=== PATIENT | male | born 1990 | race Caucasian/White ===

== ENCOUNTER 2016-03-14 16:55 | Emergency (ER) | payer OTHER, SELFPAY ==
[~2016-03-14 16:55] MED LIST: [UNRECOGNIZED DRUG - REMARK]
--- NOTE | 2016-03-14 17:37 | EDDOCDS ---
Nurse's Notes [facility] Name: Cedrick Moore Age: 25 yrs Sex: Male : 1990 Arrival Date: 03/14/2016 Time: 16:55 Bed TR8 Private MD: Jazmine King L. Diagnosis: Dental caries;Cellulitis and abscess of mouth Presentation: 03/14 16:57 Presenting complaint: Patient states: tooth ache since last night. Adult Sepsis rs3 Screening: The patient does not have new or worsening altered mentation. Patient's respiratory rate is less than 22. Systolic blood pressure is greater than 100. Patient has a qSOFA score of 0- Negative Sepsis Screen. Suicide/Homicide risk assessment- the patient denies having any suicidal and/or homicidal ideations and does not present with any other emotional, behavioral or mental health complaints. Status: Patient is not a senior web services developer or dependent. Transition of care: patient was not received from another setting of care. 16:57 Acuity: RM Level 5 rs3 16:57 Method Of Arrival: Walkin/Carried/Asstd rs3 Triage Assessment: 17:01 General: Appears in no apparent distress. Pain: Location: mouth. HIV screening NA for rs3 this visit Offered previously. Historical: - Allergies: no known allergies; - Home Meds: 1. BuSpar 7.5 mg Oral twice a day 2. naltrexone 50 mg oral tab 1 tab once daily 3. Zoloft 100 mg Oral tab 1.5 tabs once daily - PMHx: Anxiety; Depression; heroin adddiction; - PSHx: none; - Social history: Smoking status: Patient uses tobacco products, heavy tobacco smoker. No barriers to communication noted, The patient speaks fluent Mozambican, Patient uses chewing tobacco. - Family history: Not pertinent. - : The pt / caregiver states he / she is not on anticoagulants. Home medication list is obtained from the patient. - Exposure Risk Screening:: None identified. Screenin:35 Screening information is obtained from the patient. Fall risk: No risks identified. ms18 Assistance ADL's: requires no assistance with activities of daily living. Abuse/DV Screen: The patient / caregiver reports he/she is: not in a situation that causes fear, pain or injury. Nutritional screening: No deficits noted. Advance Directives: There is no living will. home support is adequate. Assessment: 17:35 General: Appears in no apparent distress, comfortable, Behavior is appropriate for age, ms18 cooperative. Pain: Location: mouth. Neurological: No deficits noted. Respiratory: No deficits noted. Derm: Skin is pink, warm & dry. Vital Signs: 16:56 BP 155 / 92; Pulse 85; Resp 18 S; Temp 98.4(O); Pulse Ox 98% on R/A; Weight 84.37 kg dd6 (R); Height 5 ft. 7 in. (170.18 cm) (R); 16:56 Body Mass Index 29.13 (84.37 kg, 170.18 cm) dd6 Vitals: 16:56 Log In Time: March 14, 2016 at 16:54. dd6 ED Course: 16:56 Patient visited by Travis Darby PCA. dd6 16:56 Jazmine King is Private Physician. dd6 16:56 Patient moved to Waiting dd6 16:57 Patient moved to Pre RCE dd6 16:58 Triage Initiated rs3 17:03 Patient moved to Triage 2 kc3 17:14 Clovis Camp PA is PHCP. btw 17:14 Tanya Yin MD is Attending Physician. btw 17:14 Patient visited by Clovis Camp PA. btw 17:25 Michelle Briseno is Referral Physician. btw 17:33 Patient moved to TR8 ms18 17:34 [facility] Payment Agreement was scanned into [employer] and attached to record. ks16 17:35 The patient / caregiver is instructed regarding the plan of care and ED course. ms18 Accompanied by Friend. Property sent home with patient. :Personal belongings accompany Pt. 17:35 No IV's were initiated during this patient's visit. No procedures done that require ms18 assistance. Order Results: There are currently no results for this order. Outcome: 17:26 Discharge ordered by Provider. btw 17:35 Discharge Assessment: Patient awake, alert and oriented x 3. No cognitive and/or ms18 functional deficits noted. Patient verbalized understanding of disposition instructions. patient administered narcotics - no. The following High Risk Discharge criteria are identified: None. Discharged to home ambulatory. Condition: good Condition: stable. Discharge instructions given to patient, Instructed on discharge instructions, follow up and referral plans. medication usage, Demonstrated understanding of instructions, medications, Prescriptions given X 1. No special radiology studies were completed. 17:36 Patient left the ED. ms18 Signatures: Travis Darby, ACTING SECTION CHIEF ACTING SECTION CHIEF dd6 Roseline Acevedo,RN RN rs3 Clovis Camp PA PA btw Smith, Mallory, RN RN ms18 Veena Lopez RN RN [id number] Yu Ramirez, Reg Reg ks16 MTDD
--- NOTE | 2016-03-14 17:37 | EDDOCDS ---
Physician Documentation [facility] Name: Cedrick Moore Age: 25 yrs Sex: Male : 1990 Arrival Date: 03/14/2016 Time: 16:55 Bed TR8 Private MD: Jazmine King L. Disposition: 03/14/16 17:26 Discharged to Home/Self Care. Impression: Dental caries, Cellulitis and abscess of mouth. - Condition is Stable. - Discharge Instructions: Dental Abscess, Dental Pain. - Prescriptions for Clindamycin HCl 300 mg Oral Capsule - take 1 capsule by ORAL route every 6 hours; 40 capsule. - Medication Reconciliation, Local Pharmacy Hours form. - Follow up: Your, Dentist; When: Call to arrange an appointment; Reason: Further diagnostic work-up, Recheck today's complaints, Continuance of care. - Problem is an ongoing problem. - Symptoms are unchanged. Historical: - Allergies: no known allergies; - Home Meds: 1. BuSpar 7.5 mg Oral twice a day 2. naltrexone 50 mg oral tab 1 tab once daily 3. Zoloft 100 mg Oral tab 1.5 tabs once daily - PMHx: Anxiety; Depression; heroin adddiction; - PSHx: none; - Social history: Smoking status: Patient uses tobacco products, heavy tobacco smoker. No barriers to communication noted, The patient speaks fluent Urdu, Patient uses chewing tobacco. - Family history: Not pertinent. - : The pt / caregiver states he / she is not on anticoagulants. Home medication list is obtained from the patient. - Exposure Risk Screening:: None identified. Vital Signs: 03/14 16:56 BP 155 / 92; Pulse 85; Resp 18 S; Temp 98.4(O); Pulse Ox 98% on R/A; Weight 84.37 kg / dd6 186 lbs (R); Height 5 ft. 7 in. (170.18 cm) (R); 16:56 Body Mass Index 29.13 (84.37 kg, 170.18 cm) dd6 MDM: 17:33 Financial registration complete. [facility] 17:34 [facility] Payment Agreement was scanned into [email or web address] and attached to record. Signatures: Roseline AcevedoRN RN rs3 Clovis Camp PA PA btw Smith, MalloryRN RN ms18 Yu Ramirez, Reg Reg ks16 The chart was reviewed and I authenticate all verbal orders and agree with the evaluation and treatment provided.Attachments: 17:34 [facility] Payment Agreement ks16 MTDD
--- NOTE | 2016-03-16 18:37 | EDDOCDS ---
Physician Documentation [facility] Name: Cedrick Moore Age: 25 yrs Sex: Male : 1990 Arrival Date: 03/14/2016 Time: 16:55 Bed TR8 Private MD: Jazmine King L. Disposition: 03/14/16 17:26 Discharged to Home/Self Care. Impression: Dental caries, Cellulitis and abscess of mouth. - Condition is Stable. - Discharge Instructions: Dental Abscess, Dental Pain. - Prescriptions for Clindamycin HCl 300 mg Oral Capsule - take 1 capsule by ORAL route every 6 hours; 40 capsule. - Medication Reconciliation, Local Pharmacy Hours form. - Follow up: Your, Dentist; When: Call to arrange an appointment; Reason: Further diagnostic work-up, Recheck today's complaints, Continuance of care. - Problem is an ongoing problem. - Symptoms are unchanged. Historical: - Allergies: no known allergies; - Home Meds: 1. BuSpar 7.5 mg Oral twice a day 2. naltrexone 50 mg oral tab 1 tab once daily 3. Zoloft 100 mg Oral tab 1.5 tabs once daily - PMHx: Anxiety; Depression; heroin adddiction; - PSHx: none; - Social history: Smoking status: Patient uses tobacco products, heavy tobacco smoker. No barriers to communication noted, The patient speaks fluent Romanian, Patient uses chewing tobacco. - Family history: Not pertinent. - : The pt / caregiver states he / she is not on anticoagulants. Home medication list is obtained from the patient. - Exposure Risk Screening:: None identified. Vital Signs: 03/14 16:56 BP 155 / 92; Pulse 85; Resp 18 S; Temp 98.4(O); Pulse Ox 98% on R/A; Weight 84.37 kg / dd6 186 lbs (R); Height 5 ft. 7 in. (170.18 cm) (R); 16:56 Body Mass Index 29.13 (84.37 kg, 170.18 cm) dd6 MDM: 17:33 Financial registration complete. ks 17:34 [facility] Payment Agreement was scanned into [employer] and attached to record. 03/15 11:20 T-Sheet-- Draft Copy was scanned into [employer] and attached to record. gb Signatures: Sonya Reyes, Reg Reg gb Roseline AcevedoRN RN rs3 Clovis Camp PA PA btw Smith, Mallory, RN RN ms18 Yu Ramirez, Reg Reg ks16 The chart was reviewed and I authenticate all verbal orders and agree with the evaluation and treatment provided.Attachments: 03/14 17:34 [facility] Payment Agreement [email or web address] 03/15 11:20 T-Sheet-- Draft Copy gb Chart Complete MTDD
--- NOTE | 2016-03-16 18:37 | EDDOCDS ---
Nurse's Notes [facility] Name: Cedrick Moore Age: 25 yrs Sex: Male : 1990 Arrival Date: 03/14/2016 Time: 16:55 Bed TR8 Private MD: Jazmine King L. Diagnosis: Dental caries;Cellulitis and abscess of mouth Presentation: 03/14 16:57 Presenting complaint: Patient states: tooth ache since last night. Adult Sepsis rs3 Screening: The patient does not have new or worsening altered mentation. Patient's respiratory rate is less than 22. Systolic blood pressure is greater than 100. Patient has a qSOFA score of 0- Negative Sepsis Screen. Suicide/Homicide risk assessment- the patient denies having any suicidal and/or homicidal ideations and does not present with any other emotional, behavioral or mental health complaints. Status: Patient is not a family services assistant or dependent. Transition of care: patient was not received from another setting of care. 16:57 Acuity: RM Level 5 rs3 16:57 Method Of Arrival: Walkin/Carried/Asstd rs3 Triage Assessment: 17:01 General: Appears in no apparent distress. Pain: Location: mouth. HIV screening NA for rs3 this visit Offered previously. Historical: - Allergies: no known allergies; - Home Meds: 1. BuSpar 7.5 mg Oral twice a day 2. naltrexone 50 mg oral tab 1 tab once daily 3. Zoloft 100 mg Oral tab 1.5 tabs once daily - PMHx: Anxiety; Depression; heroin adddiction; - PSHx: none; - Social history: Smoking status: Patient uses tobacco products, heavy tobacco smoker. No barriers to communication noted, The patient speaks fluent Comoran, Patient uses chewing tobacco. - Family history: Not pertinent. - : The pt / caregiver states he / she is not on anticoagulants. Home medication list is obtained from the patient. - Exposure Risk Screening:: None identified. Screenin:35 Screening information is obtained from the patient. Fall risk: No risks identified. ms18 Assistance ADL's: requires no assistance with activities of daily living. Abuse/DV Screen: The patient / caregiver reports he/she is: not in a situation that causes fear, pain or injury. Nutritional screening: No deficits noted. Advance Directives: There is no living will. home support is adequate. Assessment: 17:35 General: Appears in no apparent distress, comfortable, Behavior is appropriate for age, ms18 cooperative. Pain: Location: mouth. Neurological: No deficits noted. Respiratory: No deficits noted. Derm: Skin is pink, warm & dry. Vital Signs: 16:56 BP 155 / 92; Pulse 85; Resp 18 S; Temp 98.4(O); Pulse Ox 98% on R/A; Weight 84.37 kg dd6 (R); Height 5 ft. 7 in. (170.18 cm) (R); 16:56 Body Mass Index 29.13 (84.37 kg, 170.18 cm) dd6 Vitals: 16:56 Log In Time: March 14, 2016 at 16:54. dd6 ED Course: 16:56 Patient visited by Travis Darby PCA. dd6 16:56 Jamzine King is Private Physician. dd6 16:56 Patient moved to Waiting dd6 16:57 Patient moved to Pre RCE dd6 16:58 Triage Initiated rs3 17:03 Patient moved to Triage 2 kc3 17:14 Clovis Camp PA is PHCP. btw 17:14 Tanya Yin MD is Attending Physician. btw 17:14 Patient visited by Clovis Camp PA. btw 17:25 Michelle Briseno is Referral Physician. btw 17:33 Patient moved to TR8 ms18 17:34 [facility] Payment Agreement was scanned into [employer] and attached to record. ks16 17:35 The patient / caregiver is instructed regarding the plan of care and ED course. ms18 Accompanied by Friend. Property sent home with patient. :Personal belongings accompany Pt. 17:35 No IV's were initiated during this patient's visit. No procedures done that require ms18 assistance. 03/15 11:20 T-Sheet-- Draft Copy was scanned into [employer] and attached to record. gb Order Results: There are currently no results for this order. Outcome: 03/14 17:26 Discharge ordered by Provider. btw 17:35 Discharge Assessment: Patient awake, alert and oriented x 3. No cognitive and/or ms18 functional deficits noted. Patient verbalized understanding of disposition instructions. patient administered narcotics - no. The following High Risk Discharge criteria are identified: None. Discharged to home ambulatory. Condition: good Condition: stable. Discharge instructions given to patient, Instructed on discharge instructions, follow up and referral plans. medication usage, Demonstrated understanding of instructions, medications, Prescriptions given X 1. No special radiology studies were completed. 17:36 Patient left the ED. ms18 Signatures: Sonya Reyes, Reg Reg gb JovanicashgaryTravis, ENVELOPE SEALER ENVELOPE SEALER dd6 Roseline Acevedo,RN RN rs3 Clovis Camp PA PA btw Smith, Mallory, RN RN ms18 Veena LopezRN RN kc3 Yu Ramirez, Reg Reg ks16 Chart Complete MTDD
--- NOTE | 2016-03-16 18:37 | EDDOCDS ---
Physician Documentation [facility] Name: Cedrick Moore Age: 25 yrs Sex: Male : 1990 Arrival Date: 03/14/2016 Time: 16:55 Bed TR8 Private MD: Jazmine King L. Disposition: 03/14/16 17:26 Discharged to Home/Self Care. Impression: Dental caries, Cellulitis and abscess of mouth. - Condition is Stable. - Discharge Instructions: Dental Abscess, Dental Pain. - Prescriptions for Clindamycin HCl 300 mg Oral Capsule - take 1 capsule by ORAL route every 6 hours; 40 capsule. - Medication Reconciliation, Local Pharmacy Hours form. - Follow up: Your, Dentist; When: Call to arrange an appointment; Reason: Further diagnostic work-up, Recheck today's complaints, Continuance of care. - Problem is an ongoing problem. - Symptoms are unchanged. Historical: - Allergies: no known allergies; - Home Meds: 1. BuSpar 7.5 mg Oral twice a day 2. naltrexone 50 mg oral tab 1 tab once daily 3. Zoloft 100 mg Oral tab 1.5 tabs once daily - PMHx: Anxiety; Depression; heroin adddiction; - PSHx: none; - Social history: Smoking status: Patient uses tobacco products, heavy tobacco smoker. No barriers to communication noted, The patient speaks fluent Uzbek, Patient uses chewing tobacco. - Family history: Not pertinent. - : The pt / caregiver states he / she is not on anticoagulants. Home medication list is obtained from the patient. - Exposure Risk Screening:: None identified. Vital Signs: 03/14 16:56 BP 155 / 92; Pulse 85; Resp 18 S; Temp 98.4(O); Pulse Ox 98% on R/A; Weight 84.37 kg / dd6 186 lbs (R); Height 5 ft. 7 in. (170.18 cm) (R); 16:56 Body Mass Index 29.13 (84.37 kg, 170.18 cm) dd6 MDM: 17:33 Financial registration complete. ks 17:34 [facility] Payment Agreement was scanned into [employer] and attached to record. 03/15 11:20 T-Sheet-- Draft Copy was scanned into [employer] and attached to record. gb Signatures: Sonya Reyes, Reg Reg gb Roseline AcevedoRN RN rs3 Clovis Camp PA PA btw Smith, Mallory, RN RN ms18 Yu Ramirez, Reg Reg ks16 The chart was reviewed and I authenticate all verbal orders and agree with the evaluation and treatment provided.Attachments: 03/14 17:34 [facility] Payment Agreement [email or web address] 03/15 11:20 T-Sheet-- Draft Copy gb Chart Complete MTDD
== END 2016-03-14 17:36 | disposition home or self-care (01) ==
LOC: M ED 16:55
DX: K04.7 Periapical abscess without sinus (principal); K02.9 Dental caries, unspecified; F32.9 Major depressive disorder, single episode, unspecified; F41.9 Anxiety disorder, unspecified; F17.210 Nicotine dependence, cigarettes, uncomplicated

== ENCOUNTER → 2016-04-06 | Outpatient (CLI) | payer SELFPAY | LOC: M OUTALCOH 09:53 | PROVIDERS: ATTEND Psychiatry & Neurology Psychiatry | DX: Z13.9 Encounter for screening, unspecified (principal); F14.20 Cocaine dependence, uncomplicated; F15.20 Other stimulant dependence, uncomplicated ==

== ENCOUNTER → 2016-08-13 | Outpatient (REF) | payer OTHER ==
[~2016-08-13] MED LIST changes: +BACT800T5 PO
[2016-08-13 18:40] LABS: ALBUMIN 4.2 GM/DL (3.2-5.2); ALBUMIN/GLOBULIN RATIO 1.27 (1.00-1.93); ALKALINE PHOSPHATASE 61 U/L (45-117); ALT/SGPT 37 U/L (12-78); AST/SGOT 27 U/L (15-37); BILIRUBIN,DIRECT < 0.1 MG/DL (0.0-0.2); BILIRUBIN,TOTAL 0.4 MG/DL (0.2-1.0); TOTAL PROTEIN 7.5 GM/DL (6.4-8.2)
== END ==
LOC: M LAB REF 16:53
PROVIDERS: ATTEND Surgery
DX: Z51.81 Encounter for therapeutic drug level monitoring (principal)

== ENCOUNTER 2016-11-23 12:47 | Emergency (ER) | payer OTHER, SELFPAY ==
[~2016-11-23] VITALS: Ht 172.7 cm; Wt 77.3 kg
[~2016-11-23 12:47] MED LIST changes: -BACT800T5 PO
[2016-11-23 12:48] VITALS: BP 146/78
[2016-11-23] MEDS ORDERED: BACT800T5 PO (14:44)
== END 2016-11-23 14:56 | disposition home or self-care (01) ==
LOC: M ED 12:47
DX: L02.414 Cutaneous abscess of left upper limb (principal); F11.20 Opioid dependence, uncomplicated; F17.210 Nicotine dependence, cigarettes, uncomplicated

== ENCOUNTER 2016-11-28 13:28 | Emergency (ER) | payer SELFPAY ==
[~2016-11-28] VITALS: Ht 172.7 cm; Wt 77.3 kg
[~2016-11-28 13:28] MED LIST changes: +BACT800T5 PO
[2016-11-28 16:21] VITALS: BP 137/79
[2016-11-28] MEDS ORDERED: IBUPROFEN 800 MG TAB PO ONE (16:30)
== END 2016-11-28 16:23 | disposition home or self-care (01) ==
LOC: M ED 13:28
DX: Z48.03 Encounter for change or removal of drains (principal); L02.414 Cutaneous abscess of left upper limb; F17.210 Nicotine dependence, cigarettes, uncomplicated; F15.20 Other stimulant dependence, uncomplicated

== ENCOUNTER 2016-12-04 21:34 | Emergency (ER) | payer SELFPAY ==
[2016-12-04 23:38] VITALS: BP 133/67
== END 2016-12-04 23:43 | disposition home or self-care (01) ==
LOC: M ED 21:34
DX: R45.4 Irritability and anger (principal); Y04.8XXA Assault by other bodily force, initial encounter; Y92.9 Unspecified place or not applicable; Y93.9 Activity, unspecified; Y99.9 Unspecified external cause status; F17.200 Nicotine dependence, unspecified, uncomplicated; Z86.19 Personal history of other infectious and parasitic diseases; F19.10 Other psychoactive substance abuse, uncomplicated

== ENCOUNTER 2017-03-22 10:33 | Emergency (ER) | payer OTHER, SELFPAY ==
[2017-03-22] MEDS ORDERED: KETOROLAC 30 MG/ML VIAL (J1885) IV (12:00)
[2017-03-22] MEDS: KETOROLAC 60 MG/2 ML VIAL (J1885) IM (12:15)
[2017-03-22 12:52] LABS: ANION GAP 9 MEQ/L (8-16); BLOOD UREA NITROGEN 12 MG/DL (7-18); CALCIUM LEVEL 8.3 MG/DL (8.5-10.1); CARBON DIOXIDE LEVEL 25 MEQ/L (21-32); CHLORIDE LEVEL 100 MEQ/L (98-107); CREATININE FOR GFR 0.67 MG/DL (0.70-1.30); GLOMERULAR FILTRATION RATE > 60.0 (>60); GLUCOSE, FASTING 113 MG/DL (70-100); POTASSIUM SERUM 4.8 MEQ/L (3.5-5.1); SODIUM LEVEL 134 MEQ/L (136-145)
[2017-03-22 12:59] LABS: BASO % 0.1 % (0.0-1.0); EOS # 0.1 10^3/uL (0.0-0.50); EOS % 0.8 % (0.0-3.0); HEMATOCRIT 35.3 % (42.0-52.0); HEMOGLOBIN 11.6 g/dl (14.0-18.0); IMMATURE GRANULOCYTE % 0.3 % (0-0); LYMPH # 0.4 10^3/uL (1.5-6.5); LYMPH % 4.9 % (24.0-44.0); MEAN CORPUSCULAR HEMOGLOBIN 28.5 pg (27.0-33.0); MEAN CORPUSCULAR HGB CONC 32.9 g/dl (32.0-36.5); MEAN CORPUSCULAR VOLUME 86.7 fl (80.0-96.0); MONO # 0.8 10^3/uL (0.0-0.8); MONO % 8.4 % (0.0-5.0); NEUTROPHILS # 7.6 10^3/uL (1.8-7.7); NEUTROPHILS % 85.5 % (36.0-66.0); PLATELET COUNT, AUTOMATED 191 10^3/uL (150-450); RED BLOOD COUNT 4.07 10^6/uL (4.30-6.10); RED CELL DISTRIBUTION WIDTH 13.9 % (11.5-14.5); WHITE BLOOD COUNT 8.9 10^3/uL (4.0-10.0)
[2017-03-22 13:11] LABS: D-DIMER QUANT 1977.2 ng/ml (<500)
[2017-03-22] MEDS ORDERED: ISOVUE-370 76% 100ML VIAL (Q9967) As Ordered (13:47)
[2017-03-22] MEDS: NS 1,000 ML IV (14:00)
== END 2017-03-22 15:03 | disposition home or self-care (01) ==
LOC: M ED 10:33
DX: J18.1 Lobar pneumonia, unspecified organism (principal); F41.9 Anxiety disorder, unspecified; F33.9 Major depressive disorder, recurrent, unspecified; F17.210 Nicotine dependence, cigarettes, uncomplicated; F19.10 Other psychoactive substance abuse, uncomplicated
CPT/HCPCS: Q9967

== ENCOUNTER 2017-04-13 11:06 | Inpatient (IN) | payer SELFPAY, OTHER ==
[2017-04-13 12:39] LABS: BASO % 0.3 % (0.0-1.0); EOS % 0.3 % (0.0-3.0); HEMATOCRIT 24.1 % (42.0-52.0); HEMOGLOBIN 8.3 g/dl (14.0-18.0); IMMATURE GRANULOCYTE % 1.2 % (0-3.0); LYMPH # 0.6 10^3/uL (1.5-6.5); LYMPH % 8.1 % (24.0-44.0); MEAN CORPUSCULAR HEMOGLOBIN 27.1 pg (27.0-33.0); MEAN CORPUSCULAR HGB CONC 34.4 g/dl (32.0-36.5); MEAN CORPUSCULAR VOLUME 78.8 fl (80.0-96.0); MONO # 0.6 10^3/uL (0.0-0.8); MONO % 7.8 % (0.0-5.0); NEUTROPHILS # 6.1 10^3/uL (1.8-7.7); NEUTROPHILS % 82.3 % (36.0-66.0); PLATELET COUNT, AUTOMATED 117 10^3/uL (150-450); RED BLOOD COUNT 3.06 10^6/uL (4.30-6.10); RED CELL DISTRIBUTION WIDTH 15.4 % (11.5-14.5); WHITE BLOOD COUNT 7.4 10^3/uL (4.0-10.0)
[2017-04-13 13:00] LABS: ALBUMIN 1.8 GM/DL (3.2-5.2); ALBUMIN/GLOBULIN RATIO 0.39 (1.00-1.93); ALKALINE PHOSPHATASE 139 U/L (45-117); ALT/SGPT 34 U/L (12-78); ANION GAP 10 MEQ/L (8-16); AST/SGOT 103 U/L (7-37); BILIRUBIN,DIRECT 0.3 MG/DL (0.0-0.2); BILIRUBIN,TOTAL 0.6 MG/DL (0.2-1.0); BLOOD UREA NITROGEN 61 MG/DL (7-18); CALCIUM LEVEL 7.3 MG/DL (8.5-10.1); CARBON DIOXIDE LEVEL 21 MEQ/L (21-32); CHLORIDE LEVEL 101 MEQ/L (98-107); CREATININE FOR GFR 1.66 MG/DL (0.70-1.30); GLOMERULAR FILTRATION RATE 53.6 (>60); GLUCOSE, FASTING 96 MG/DL (70-100); SODIUM LEVEL 132 MEQ/L (136-145); TOTAL PROTEIN 6.4 GM/DL (6.4-8.2)
[2017-04-13] MEDS: NS 1,000 ML IV ×3 (13:07→23:35)
[2017-04-13 13:31] LABS: INR 1.21; PROTHROMBIN TIME 15.6 SECONDS (12.4-14.5)
[2017-04-13 13:32] LABS: INFLUENZA A AMPLIFICATION NEGATIVE (NEGATIVE); INFLUENZA B AMPLIFICATION NEGATIVE (NEGATIVE)
[2017-04-13] MEDS ORDERED: ONDANSETRON 4MG/2ML VIAL (J2405) IV (15:15)
[2017-04-13 15:55] LABS: REASON FOR REVIEW OTHER; SLIDE REVIEW Report; SOURCE PERIPHERAL SMEAR
[2017-04-13 16:01] LABS: RETIC HEMOGLOBIN EQUIVALENT 26.9 pg (24-36); RETICULOCYTE # 24.2 10^9/L (17-77); RETICULOCYTE % 0.8 % (0.5-1.5)
[2017-04-13 16:02] LABS: VITAMIN B12 LEVEL 1463 PG/ML (247-911)
[2017-04-13 16:03] LABS: FOLATE 10.2 NG/ML (>5.4)
[2017-04-13 16:10] LABS: FERRITIN 979 NG/ML (26-388); IRON (FE) 12 UG/DL (65-175); PERCENT SATURATION 9.9 % (19.7-50.0); TOTAL IRON BINDING CAPACITY 121 UG/DL (250-450)
[2017-04-13] MEDS: PIPERACILLIN/TAZOBACTAM SOD 3.375 GM in APPROPRIATE DILUENT 1 EA IV (16:38)
[2017-04-13] MEDS: VANCOMYCIN HCL 1,000 MG, VIAL MATE ADAPTER 1 EACH in D5W 250 ML IV (18:33)
[2017-04-13] MEDS: VANCOMYCIN HCL 500 MG in D5W MINI-BAG PLUS 100 ML IV (20:46)
[2017-04-13] MEDS: DOCUSATE SODIUM 100 MG CAP PO (20:46)
[2017-04-14] MEDS: ACETAMINOPHEN TAB 650MG DOSE (2X325MG) PO (00:13)
[2017-04-14 00:24] LABS: HEMATOCRIT 19.3 % (42.0-52.0)
[2017-04-14 00:31] LABS: HEMOGLOBIN 6.8 g/dl (14.0-18.0)
[2017-04-14 01:36] LABS: IMMEDIATE SPIN CROSSMATCH 1 2
[2017-04-14] MEDS: PIPERACILLIN/TAZOBACTAM SOD 3.375 GM in APPROPRIATE DILUENT 1 EA IV ×2 (02:23→10:48)
[2017-04-14] MEDS: DOCUSATE SODIUM 100 MG CAP PO ×2 (08:07→20:12)
[2017-04-14] MEDS: VANCOMYCIN HCL 1,000 MG, VIAL MATE ADAPTER 1 EACH in D5W 250 ML IV ×2 (08:08→20:11)
[2017-04-14] MEDS: NS 1,000 ML IV ×2 (12:27→20:12)
[2017-04-14 13:07] LABS: HEMOGLOBIN 8.6 g/dl (14.0-18.0); MEAN CORPUSCULAR HEMOGLOBIN 26.8 pg (27.0-33.0); MEAN CORPUSCULAR HGB CONC 34.4 g/dl (32.0-36.5); MEAN CORPUSCULAR VOLUME 77.9 fl (80.0-96.0); PLATELET COUNT, AUTOMATED 113 10^3/uL (150-450); RED BLOOD COUNT 3.21 10^6/uL (4.30-6.10); WHITE BLOOD COUNT 5.7 10^3/uL (4.0-10.0)
[2017-04-14 13:24] LABS: ANION GAP 8 MEQ/L (8-16); BLOOD UREA NITROGEN 43 MG/DL (7-18); CALCIUM LEVEL 6.9 MG/DL (8.5-10.1); CARBON DIOXIDE LEVEL 23 MEQ/L (21-32); CHLORIDE LEVEL 111 MEQ/L (98-107); CREATININE FOR GFR 0.96 MG/DL (0.70-1.30); GLOMERULAR FILTRATION RATE > 60.0 (>60); GLUCOSE, FASTING 94 MG/DL (70-100); POTASSIUM SERUM 3.5 MEQ/L (3.5-5.1); SODIUM LEVEL 142 MEQ/L (136-145)
[2017-04-14] MEDS: CETACAINE SPRAY 5GM As Ordered (16:51)
[2017-04-14] MEDS ORDERED: PROPOFOL 200 MG/20 ML VIAL As Ordered ×2 (17:06→17:21)
[2017-04-14] MEDS ORDERED: MIDAZOLAM INJ 2 MG/2 ML VIAL (J2250) As Ordered (17:06)
[2017-04-14] MEDS: LIDOCAINE VISCOUS 2% SOLN 15ML UDC As Ordered (17:29)
[2017-04-14] MEDS ORDERED: LR 1,000 ML IV (18:15)
[2017-04-14] MEDS ORDERED: ONDANSETRON 4MG/2ML VIAL (J2405) IV (18:15)
[2017-04-14] MEDS ORDERED: fentaNYL 100 MCG/2 ML INJECTION (J3010) IV (18:15)
[2017-04-14] MEDS ORDERED: PERCOCET 5MG/325MG TAB PO (18:15)
[2017-04-14] MEDS: HEPARIN SOD (PORCINE) 5000 UNITS/ML VIAL SQ (20:12)
[2017-04-14 20:46] LABS: HEMATOCRIT 26.4 % (42.0-52.0); HEMOGLOBIN 8.9 g/dl (14.0-18.0)
[2017-04-14 21:40] LABS: VANCOMYCIN LEVEL TROUGH 16.4 UG/ML (10.0-20.0)
[2017-04-15] MEDS: ACETAMINOPHEN TAB 650MG DOSE (2X325MG) PO ×2 (02:18→18:38)
[2017-04-15 04:09] LABS: AMORPHOUS SEDIMENT SMALL (NEGATIVE); APPEARANCE, URINE TURBID (CLEAR); BACTERIA, URINE AUTO 1+ (NEGATIVE); BILIRUBIN, URINE AUTO NEGATIVE (NEGATIVE); BLOOD, URINE BLOOD 3+ (NEGATIVE); COLOR, URINE AMBER (YELLOW); GLUCOSE, URINE (UA) AUTO NEGATIVE (NEGATIVE); KETONE, URINE AUTO NEGATIVE (NEGATIVE); LEUKOCYTE ESTERASE, URINE AUTO TRACE (NEGATIVE); NITRITE, URINE AUTO NEGATIVE (NEGATIVE); PROTEIN, URINE AUTO NEGATIVE (NEGATIVE); RBC, URINE AUTO 66 /HPF (0-3); SPECIFIC GRAVITY URINE AUTO 1.018 (1.002-1.035); SQUAMOUS EPITHELIAL CELL UR AU 0 /HPF (0-6); WBC, URINE AUTO 26 /HPF (0-3)
[2017-04-15 05:52] LABS: HEMATOCRIT 25.9 % (42.0-52.0); HEMOGLOBIN 8.9 g/dl (14.0-18.0); MEAN CORPUSCULAR HGB CONC 34.4 g/dl (32.0-36.5); MEAN CORPUSCULAR VOLUME 78.5 fl (80.0-96.0); PLATELET COUNT, AUTOMATED 155 10^3/uL (150-450); RED CELL DISTRIBUTION WIDTH 16.4 % (11.5-14.5)
[2017-04-15 06:00] LABS: ANION GAP 8 MEQ/L (8-16); BLOOD UREA NITROGEN 43 MG/DL (7-18); CALCIUM LEVEL 6.7 MG/DL (8.5-10.1); CARBON DIOXIDE LEVEL 20 MEQ/L (21-32); CHLORIDE LEVEL 112 MEQ/L (98-107); CREATININE FOR GFR 1.22 MG/DL (0.70-1.30); GLOMERULAR FILTRATION RATE > 60.0 (>60); GLUCOSE, FASTING 95 MG/DL (70-100); POTASSIUM SERUM 4.1 MEQ/L (3.5-5.1); SODIUM LEVEL 140 MEQ/L (136-145)
[2017-04-15 06:01] LABS: MAGNESIUM LEVEL 2.6 MG/DL (1.8-2.4)
[2017-04-15 06:01] LABS: C REACTIVE PROTEIN QUANTITATIV 7.67 MG/DL (0.00-0.30)
[2017-04-15] MEDS: NS 1,000 ML IV ×3 (06:47→17:07)
[2017-04-15] MEDS: VANCOMYCIN HCL 1,000 MG, VIAL MATE ADAPTER 1 EACH in D5W 250 ML IV ×2 (08:14→19:56)
[2017-04-15 08:19] LABS: TRANSFERRIN 99 mg/dL (200-370)
[2017-04-15] MEDS: HEPARIN SOD (PORCINE) 5000 UNITS/ML VIAL SQ ×2 (08:51→20:09)
[2017-04-15] MEDS: DOCUSATE SODIUM 100 MG CAP PO ×2 (08:51→20:09)
[2017-04-15 10:36] LABS: HEPATITIS B SURFACE ANTIGEN NEGATIVE (NEGATIVE)
[2017-04-15 11:00] LABS: HEPATITIS B CORE ANTIBODY IGM NEGATIVE (NEGATIVE); HIV 1&2 SCREEN CENTAUR NEGATIVE (NEGATIVE)
[2017-04-15 11:02] LABS: HEPATITIS A ANTIBODY IGM NEGATIVE (NEGATIVE)
[2017-04-15 11:13] LABS: HEPATITIS C VIRUS ABY INDEX > 11.0 INDEX (<0.8)
[2017-04-16] MEDS: NS 1,000 ML IV ×3 (03:35→21:00)
[2017-04-16] MEDS: SODIUM CHLORIDE 0.9% INJ 10 ML SYR IV ×4 (05:43→20:43)
[2017-04-16 06:10] LABS: HEMATOCRIT 29.2 % (42.0-52.0); HEMOGLOBIN 9.8 g/dl (14.0-18.0); MEAN CORPUSCULAR HEMOGLOBIN 27.1 pg (27.0-33.0); MEAN CORPUSCULAR HGB CONC 33.6 g/dl (32.0-36.5); MEAN CORPUSCULAR VOLUME 80.7 fl (80.0-96.0); PLATELET COUNT, AUTOMATED 208 10^3/uL (150-450); RED BLOOD COUNT 3.62 10^6/uL (4.30-6.10); RED CELL DISTRIBUTION WIDTH 16.7 % (11.5-14.5); WHITE BLOOD COUNT 7.4 10^3/uL (4.0-10.0)
[2017-04-16 06:30] LABS: ANION GAP 10 MEQ/L (8-16); BLOOD UREA NITROGEN 45 MG/DL (7-18); C REACTIVE PROTEIN QUANTITATIV 7.17 MG/DL (0.00-0.30); CALCIUM LEVEL 6.9 MG/DL (8.5-10.1); CARBON DIOXIDE LEVEL 19 MEQ/L (21-32); CHLORIDE LEVEL 112 MEQ/L (98-107); GLOMERULAR FILTRATION RATE > 60.0 (>60); GLUCOSE, FASTING 98 MG/DL (70-100); MAGNESIUM LEVEL 2.4 MG/DL (1.8-2.4); POTASSIUM SERUM 4.5 MEQ/L (3.5-5.1); SODIUM LEVEL 141 MEQ/L (136-145)
[2017-04-16] MEDS: DOCUSATE SODIUM 100 MG CAP PO ×2 (08:14→20:42)
[2017-04-16] MEDS: HEPARIN SOD (PORCINE) 5000 UNITS/ML VIAL SQ ×2 (08:14→20:42)
[2017-04-16] MEDS: VANCOMYCIN HCL 1,000 MG, VIAL MATE ADAPTER 1 EACH in D5W 250 ML IV (08:15)
[2017-04-16 08:51] LABS: POTASSIUM SERUM 4.1 MEQ/L (3.5-5.1)
[2017-04-16 08:57] LABS: CHLORIDE,RANDOM URINE < 10 MEQ/L; SODIUM,RANDOM URINE < 10 MEQ/L
[2017-04-16 09:14] LABS: AMORPHOUS SEDIMENT SMALL (NEGATIVE); APPEARANCE, URINE CLOUDY (CLEAR); BACTERIA, URINE AUTO 2+ (NEGATIVE); BILIRUBIN, URINE AUTO NEGATIVE (NEGATIVE); BLOOD, URINE BLOOD 2+ (NEGATIVE); COLOR, URINE YELLOW (YELLOW); GLUCOSE, URINE (UA) AUTO NEGATIVE (NEGATIVE); KETONE, URINE AUTO NEGATIVE (NEGATIVE); LEUKOCYTE ESTERASE, URINE AUTO TRACE (NEGATIVE); NITRITE, URINE AUTO NEGATIVE (NEGATIVE); PROTEIN, URINE AUTO NEGATIVE (NEGATIVE); RBC, URINE AUTO 15 /HPF (0-3); SPECIFIC GRAVITY URINE AUTO 1.014 (1.002-1.035); SQUAMOUS EPITHELIAL CELL UR AU 0 /HPF (0-6); UROBILINOGEN, URINE AUTO 0.2 mg/dL (0.0-2.0); WBC, URINE AUTO 23 /HPF (0-3)
[2017-04-16 09:28] LABS: VANCOMYCIN LEVEL TROUGH 27.6 UG/ML (10.0-20.0)
[2017-04-16 10:08] LABS: OSMOLALITY URINE 389 MOSM/KG (500-800)
[2017-04-16 11:13] LABS: QUANTIFERON GOLD TB Negative (Negative); TB Test (QFT) Antigen 0.04 IU/mL (.); TB Test (QFT) Antigen Minus Ni <0.01 IU/mL (.); TB Test (QFT) Mitogen 6.33 IU/mL (.); TB Test (QFT) Nil 0.05 IU/mL (.)
[2017-04-16] MEDS: ACETAMINOPHEN TAB 650MG DOSE (2X325MG) PO (20:42)
[2017-04-16 20:55] LABS: CPK CREATINE PHOSPHOKINASE 70 U/L (39-308); MB/CK RELATIVE INDEX 1.42 (< OR =4); TROPONIN I < 0.02 NG/ML (< 0.10)
[2017-04-17 05:54] LABS: HEMATOCRIT 26.6 % (42.0-52.0); HEMOGLOBIN 8.8 g/dl (14.0-18.0); MEAN CORPUSCULAR HEMOGLOBIN 26.9 pg (27.0-33.0); MEAN CORPUSCULAR HGB CONC 33.1 g/dl (32.0-36.5); MEAN CORPUSCULAR VOLUME 81.3 fl (80.0-96.0); PLATELET COUNT, AUTOMATED 238 10^3/uL (150-450); RED BLOOD COUNT 3.27 10^6/uL (4.30-6.10); RED CELL DISTRIBUTION WIDTH 16.9 % (11.5-14.5); WHITE BLOOD COUNT 7.9 10^3/uL (4.0-10.0)
[2017-04-17] MEDS: SODIUM CHLORIDE 0.9% INJ 10 ML SYR IV ×3 (05:55→22:00)
[2017-04-17 06:21] LABS: ANION GAP 7 MEQ/L (8-16); BLOOD UREA NITROGEN 49 MG/DL (7-18); CALCIUM LEVEL 6.7 MG/DL (8.5-10.1); CARBON DIOXIDE LEVEL 19 MEQ/L (21-32); CHLORIDE LEVEL 117 MEQ/L (98-107); CREATININE FOR GFR 1.92 MG/DL (0.70-1.30); GLOMERULAR FILTRATION RATE 45.3 (>60); GLUCOSE, FASTING 96 MG/DL (70-100); MAGNESIUM LEVEL 2.5 MG/DL (1.8-2.4); POTASSIUM SERUM 4.6 MEQ/L (3.5-5.1); SODIUM LEVEL 143 MEQ/L (136-145); VANCOMYCIN RANDOM 18.3 UG/ML
[2017-04-17] MEDS: NS 1,000 ML IV (06:41)
[2017-04-17] MEDS: DOCUSATE SODIUM 100 MG CAP PO ×3 (08:57→21:59)
[2017-04-17] MEDS: VANCOMYCIN HCL 1,000 MG, VIAL MATE ADAPTER 1 EACH in D5W 250 ML IV (08:57)
[2017-04-17] MEDS: HEPARIN SOD (PORCINE) 5000 UNITS/ML VIAL SQ ×2 (08:58→21:59)
[2017-04-17 13:43] LABS: TYPE AND SCREEN 1 1
[2017-04-18] MEDS: SODIUM CHLORIDE 0.9% INJ 10 ML SYR IV ×3 (05:02→18:20)
[2017-04-18 05:14] LABS: HEMATOCRIT 26.2 % (42.0-52.0); HEMOGLOBIN 8.5 g/dl (14.0-18.0); MEAN CORPUSCULAR HEMOGLOBIN 26.6 pg (27.0-33.0); MEAN CORPUSCULAR HGB CONC 32.4 g/dl (32.0-36.5); MEAN CORPUSCULAR VOLUME 82.1 fl (80.0-96.0); PLATELET COUNT, AUTOMATED 242 10^3/uL (150-450); RED BLOOD COUNT 3.19 10^6/uL (4.30-6.10); RED CELL DISTRIBUTION WIDTH 17.1 % (11.5-14.5); WHITE BLOOD COUNT 7.7 10^3/uL (4.0-10.0)
[2017-04-18 05:43] LABS: ANION GAP 9 MEQ/L (8-16); BLOOD UREA NITROGEN 57 MG/DL (7-18); CALCIUM LEVEL 7.4 MG/DL (8.5-10.1); CARBON DIOXIDE LEVEL 18 MEQ/L (21-32); CHLORIDE LEVEL 113 MEQ/L (98-107); CREATININE FOR GFR 2.39 MG/DL (0.70-1.30); GLOMERULAR FILTRATION RATE 35.2 (>60); GLUCOSE, FASTING 86 MG/DL (70-100); MAGNESIUM LEVEL 2.7 MG/DL (1.8-2.4); POTASSIUM SERUM 5.1 MEQ/L (3.5-5.1); SODIUM LEVEL 140 MEQ/L (136-145)
[2017-04-18 08:31] LABS: VANCOMYCIN LEVEL TROUGH 19.2 UG/ML (10.0-20.0)
[2017-04-18] MEDS: DOCUSATE SODIUM 100 MG CAP PO ×2 (09:47→21:00)
[2017-04-18] MEDS: HEPARIN SOD (PORCINE) 5000 UNITS/ML VIAL SQ ×2 (09:48→21:28)
[2017-04-18] MEDS: SODIUM BICARBONATE 325 MG TAB PO ×2 (14:13→21:28)
[2017-04-18] MEDS: DAPTOmycin 500 MG in NS 50 ML IV (18:19)
[2017-04-18] MEDS ORDERED: VANCOMYCIN HCL 1,000 MG, VIAL MATE ADAPTER 1 EACH in D5W 250 ML IV (21:00)
[2017-04-19 00:06] LABS: HCV RNA NAA QUALITATIVE Positive (Negative)
[2017-04-19] MEDS: SODIUM CHLORIDE 0.9% INJ 10 ML SYR IV ×3 (05:10→16:20)
[2017-04-19 05:17] LABS: HEMATOCRIT 24.6 % (42.0-52.0); MEAN CORPUSCULAR HEMOGLOBIN 27.4 pg (27.0-33.0); MEAN CORPUSCULAR HGB CONC 32.5 g/dl (32.0-36.5); MEAN CORPUSCULAR VOLUME 84.2 fl (80.0-96.0); PLATELET COUNT, AUTOMATED 231 10^3/uL (150-450); RED BLOOD COUNT 2.92 10^6/uL (4.30-6.10); RED CELL DISTRIBUTION WIDTH 17.2 % (11.5-14.5); WHITE BLOOD COUNT 7.5 10^3/uL (4.0-10.0)
[2017-04-19 05:54] LABS: ANION GAP 8 MEQ/L (8-16); BLOOD UREA NITROGEN 60 MG/DL (7-18); C REACTIVE PROTEIN QUANTITATIV 5.46 MG/DL (0.00-0.30); CALCIUM LEVEL 7.1 MG/DL (8.5-10.1); CARBON DIOXIDE LEVEL 18 MEQ/L (21-32); CHLORIDE LEVEL 116 MEQ/L (98-107); CREATININE FOR GFR 2.69 MG/DL (0.70-1.30); GLOMERULAR FILTRATION RATE 30.7 (>60); GLUCOSE, FASTING 92 MG/DL (70-100); MAGNESIUM LEVEL 2.5 MG/DL (1.8-2.4); SODIUM LEVEL 142 MEQ/L (136-145)
[2017-04-19 05:56] LABS: POTASSIUM SERUM 5.6 MEQ/L (3.5-5.1)
[2017-04-19] MEDS: DOCUSATE SODIUM 100 MG CAP PO ×2 (09:29→21:00)
[2017-04-19] MEDS: SODIUM BICARBONATE 325 MG TAB PO ×2 (09:29→21:15)
[2017-04-19] MEDS: FERROUS SULFATE 325MG TAB PO (09:29)
[2017-04-19] MEDS: HEPARIN SOD (PORCINE) 5000 UNITS/ML VIAL SQ ×2 (09:31→21:15)
[2017-04-19] MEDS: SOD POLYSTYRENE SULFONATE SUSP 15 GM/60 ML UD PO (09:50)
[2017-04-19 10:02] LABS: PHOSPHORUS LEVEL 7.1 MG/DL (2.5-4.9)
[2017-04-19 14:21] LABS: IMMEDIATE SPIN CROSSMATCH 1 1
[2017-04-19 15:53] LABS: ANION GAP 9 MEQ/L (8-16); BLOOD UREA NITROGEN 54 MG/DL (7-18); CALCIUM LEVEL 6.1 MG/DL (8.5-10.1); CARBON DIOXIDE LEVEL 15 MEQ/L (21-32); CHLORIDE LEVEL 121 MEQ/L (98-107); CREATININE FOR GFR 2.24 MG/DL (0.70-1.30); GLOMERULAR FILTRATION RATE 37.9 (>60); GLUCOSE, FASTING 85 MG/DL (70-100); MAGNESIUM LEVEL 2.1 MG/DL (1.8-2.4); PHOSPHORUS LEVEL 6.1 MG/DL (2.5-4.9); POTASSIUM SERUM 4.3 MEQ/L (3.5-5.1); SODIUM LEVEL 145 MEQ/L (136-145)
[2017-04-19] MEDS: CALCIUM GLUCONATE 1,000 MG in D5W MINI-BAG PLUS 100 ML IV (21:15)
[2017-04-20] MEDS: SODIUM CHLORIDE 0.9% INJ 10 ML SYR IV ×2 (05:09→12:53)
[2017-04-20 05:27] LABS: HEMATOCRIT 26.1 % (42.0-52.0); HEMOGLOBIN 8.4 g/dl (14.0-18.0); MEAN CORPUSCULAR HEMOGLOBIN 27.3 pg (27.0-33.0); MEAN CORPUSCULAR HGB CONC 32.2 g/dl (32.0-36.5); MEAN CORPUSCULAR VOLUME 84.7 fl (80.0-96.0); PLATELET COUNT, AUTOMATED 253 10^3/uL (150-450); RED BLOOD COUNT 3.08 10^6/uL (4.30-6.10); RED CELL DISTRIBUTION WIDTH 16.9 % (11.5-14.5); WHITE BLOOD COUNT 7.2 10^3/uL (4.0-10.0)
[2017-04-20 05:35] LABS: C REACTIVE PROTEIN QUANTITATIV 5.45 MG/DL (0.00-0.30); MAGNESIUM LEVEL 2.5 MG/DL (1.8-2.4)
[2017-04-20 05:36] LABS: ANION GAP 6 MEQ/L (8-16); BLOOD UREA NITROGEN 66 MG/DL (7-18); CALCIUM LEVEL 7.2 MG/DL (8.5-10.1); CARBON DIOXIDE LEVEL 19 MEQ/L (21-32); CHLORIDE LEVEL 116 MEQ/L (98-107); CREATININE FOR GFR 2.86 MG/DL (0.70-1.30); GLOMERULAR FILTRATION RATE 28.6 (>60); GLUCOSE, FASTING 93 MG/DL (70-100); SODIUM LEVEL 141 MEQ/L (136-145)
[2017-04-20 05:47] LABS: POTASSIUM SERUM 5.3 MEQ/L (3.5-5.1)
[2017-04-20] MEDS: FERROUS SULFATE 325MG TAB PO (09:07)
[2017-04-20] MEDS: SODIUM BICARBONATE 325 MG TAB PO (09:07)
[2017-04-20] MEDS: DOCUSATE SODIUM 100 MG CAP PO (09:07)
[2017-04-20] MEDS: HEPARIN SOD (PORCINE) 5000 UNITS/ML VIAL SQ (09:10)
[2017-04-20 10:27] LABS: CHOLESTEROL LEVEL 120 MG/DL (<200); HDL CHOLESTEROL 15 MG/DL (>40); LDL CHOLESTEROL 74.6 MG/DL (<100); NON-HDL-C 105 MG/DL; TRIGLYCERIDES LEVEL 152 MG/DL (<150)
[2017-04-20 11:02] LABS: ESTIMATED AVERAGE GLUCOSE 100 MG/DL (60-110); HEMOGLOBIN A1c 5.1 %
[2017-04-20] MEDS: FUROSEMIDE 40 MG/4 ML VIAL (J1940) IV (12:53)
[2017-04-20] MEDS ORDERED: DAPTOmycin 500 MG in NS 50 ML IV (18:00)
== END 2017-04-20 16:42 | disposition short-term general hospital (02) | DRG 720 ==
LOC: M ED 11:06 → M ED INP 15:15 → M MS4PR 17:52 → M MSPAV 21:19
PROC: B246ZZ4 Ultrasonography of Right and Left Heart, Transesophageal (ICD-10-PCS; 2017-04-14 09:53)
PROC: 02HV33Z Insertion of Infusion Device into Superior Vena Cava, Percutaneous Approach (ICD-10-PCS; principal; 2017-04-14 17:19)
PROC: 02HV33Z Insertion of Infusion Device into Superior Vena Cava, Percutaneous Approach (ICD-10-PCS; 2017-04-14 17:19)
PROC: 30253N1 (ICD-10-PCS; 2017-04-14 17:19)
PROC: 30253J1 (ICD-10-PCS; 2017-04-14 17:19)
DX: A41.01 Sepsis due to Methicillin susceptible Staphylococcus aureus (principal); N17.0 Acute kidney failure with tubular necrosis; I26.90 Septic pulmonary embolism without acute cor pulmonale; I33.0 Acute and subacute infective endocarditis; E46 Unspecified protein-calorie malnutrition; E87.2 Acidosis; D69.6 Thrombocytopenia, unspecified; E83.41 Hypermagnesemia; E83.51 Hypocalcemia; D50.9 Iron deficiency anemia, unspecified; F32.9 Major depressive disorder, single episode, unspecified; B18.2 Chronic viral hepatitis C; F11.10 Opioid abuse, uncomplicated; F17.210 Nicotine dependence, cigarettes, uncomplicated; E87.6 Hypokalemia; B95.61 Methicillin susceptible Staphylococcus aureus infection as the cause of diseases classified elsewhere; Z81.8 Family history of other mental and behavioral disorders

== ENCOUNTER 2017-04-30 10:59 | Outpatient (CLI) | payer MEDICAID, SELFPAY ==
[2017-04-30] MEDS ORDERED: DAPTOmycin 500 MG in NS 50 ML IV (12:00)
[2017-04-30 13:41] LABS: HEMOGLOBIN 8.7 g/dl (14.0-18.0); MEAN CORPUSCULAR HEMOGLOBIN 27.5 pg (27.0-33.0); MEAN CORPUSCULAR HGB CONC 31.1 g/dl (32.0-36.5); MEAN CORPUSCULAR VOLUME 88.6 fl (80.0-96.0); PLATELET COUNT, AUTOMATED 202 10^3/uL (150-450); RED BLOOD COUNT 3.16 10^6/uL (4.30-6.10); RED CELL DISTRIBUTION WIDTH 17.8 % (11.5-14.5); WHITE BLOOD COUNT 10.1 10^3/uL (4.0-10.0)
[2017-04-30 14:05] LABS: ALBUMIN/GLOBULIN RATIO 0.43 (1.00-1.93); ALKALINE PHOSPHATASE 76 U/L (45-117); ALT/SGPT 9 U/L (12-78); ANION GAP 10 MEQ/L (8-16); AST/SGOT 18 U/L (7-37); BILIRUBIN,TOTAL 0.2 MG/DL (0.2-1.0); BLOOD UREA NITROGEN 24 MG/DL (7-18); CALCIUM LEVEL 7.7 MG/DL (8.5-10.1); CARBON DIOXIDE LEVEL 22 MEQ/L (21-32); CHLORIDE LEVEL 110 MEQ/L (98-107); CPK CREATINE PHOSPHOKINASE 53 U/L (39-308); GLOMERULAR FILTRATION RATE > 60.0 (>60); GLUCOSE, FASTING 100 MG/DL (70-100); POTASSIUM SERUM 4.2 MEQ/L (3.5-5.1); SODIUM LEVEL 142 MEQ/L (136-145); TOTAL PROTEIN 6.7 GM/DL (6.4-8.2)
[2017-05-02 10:27] LABS: HEPATITIS B SURFACE ANTIBODY POSITIVE (POSITIVE)
== END 2017-04-30 14:10 | disposition left against medical advice (07) ==
LOC: M OPCLI5PR 10:59 → M MS5PR 11:07 → M OPCLI5PR 14:10
DX: A49.02 Methicillin resistant Staphylococcus aureus infection, unspecified site (principal)
CPT/HCPCS: 82550

== ENCOUNTER 2017-05-17 11:44 | Inpatient (IN) | payer OTHER, MEDICAID ==
[2017-05-17 13:04] LABS: BASO % 0.2 % (0.0-1.0); EOS # 0.1 10^3/uL (0.0-0.50); EOS % 1.2 % (0.0-3.0); HEMATOCRIT 20.8 % (42.0-52.0); LYMPH # 0.6 10^3/uL (1.5-6.5); LYMPH % 6.4 % (24.0-44.0); MEAN CORPUSCULAR HEMOGLOBIN 26.6 pg (27.0-33.0); MEAN CORPUSCULAR HGB CONC 33.2 g/dl (32.0-36.5); MEAN CORPUSCULAR VOLUME 80.3 fl (80.0-96.0); MONO # 0.5 10^3/uL (0.0-0.8); MONO % 5.3 % (0.0-5.0); NEUTROPHILS # 8.5 10^3/uL (1.8-7.7); NEUTROPHILS % 85.9 % (36.0-66.0); RED BLOOD COUNT 2.59 10^6/uL (4.30-6.10); RED CELL DISTRIBUTION WIDTH 19.4 % (11.5-14.5)
[2017-05-17 13:12] LABS: HEMOGLOBIN 6.9 g/dl (13.5-17.5); PLATELET COUNT, AUTOMATED 84 10^3/uL (150-450); POSITIVE MORPH POS FLAG; SUSPECT SAMPLE POS FLAG
[2017-05-17 13:14] LABS: IMMATURE PLATELET FRACTION % 5.3 % (0.0-10.9); PLATELET F 97
[2017-05-17 13:17] LABS: ALBUMIN 1.3 GM/DL (3.2-5.2); ALBUMIN/GLOBULIN RATIO 0.27 (1.00-1.93); ALKALINE PHOSPHATASE 192 U/L (45-117); ALT/SGPT 6 U/L (12-78); ANION GAP 13 MEQ/L (8-16); AST/SGOT 25 U/L (7-37); BILIRUBIN,DIRECT 0.2 MG/DL (0.0-0.2); BILIRUBIN,TOTAL 0.4 MG/DL (0.2-1.0); BLOOD UREA NITROGEN 127 MG/DL (7-18); CALCIUM LEVEL 7.4 MG/DL (8.5-10.1); CARBON DIOXIDE LEVEL 16 MEQ/L (21-32); CHLORIDE LEVEL 103 MEQ/L (98-107); GLOMERULAR FILTRATION RATE 15.4 (>60); GLUCOSE, FASTING 103 MG/DL (70-100); POTASSIUM SERUM 4.9 MEQ/L (3.5-5.1); SODIUM LEVEL 132 MEQ/L (136-145); TOTAL PROTEIN 6.1 GM/DL (6.4-8.2)
[2017-05-17 13:18] LABS: LACTIC ACID SEPSIS PROTOCOL 0.6 MMOL/L (0.4-2.0)
[2017-05-17] MEDS: ONDANSETRON 4MG/2ML VIAL (J2405) IV (13:58)
[2017-05-17] MEDS: NS 1,000 ML IV (13:58)
[2017-05-17] MEDS: MORPHINE 2 MG/ML 1ML SYRINGE (J2270) IV ×2 (13:59→15:34)
[2017-05-17] MEDS ORDERED: DAPTOmycin 500 MG/10 ML VIAL (CUBICIN) (J0878) IP (16:45)
[2017-05-17] MEDS ORDERED: DAPTOmycin 500 MG/10 ML VIAL (CUBICIN) (J0878) IV (17:30)
[2017-05-17 18:54] LABS: APPEARANCE, URINE CLOUDY (CLEAR); BACTERIA, URINE AUTO 3+ (NEGATIVE); BILIRUBIN, URINE AUTO NEGATIVE (NEGATIVE); BLOOD, URINE BLOOD 3+ (NEGATIVE); COLOR, URINE AMBER (YELLOW); GLUCOSE, URINE (UA) AUTO NEGATIVE (NEGATIVE); KETONE, URINE AUTO NEGATIVE (NEGATIVE); LEUKOCYTE ESTERASE, URINE AUTO 3+ (NEGATIVE); NITRITE, URINE AUTO NEGATIVE (NEGATIVE); PROTEIN, URINE AUTO 2+ mg/dL (NEGATIVE); RBC, URINE AUTO TNTC /HPF (0-3); SPECIFIC GRAVITY URINE AUTO 1.019 (1.002-1.035); SQUAMOUS EPITHELIAL CELL UR AU 2 /HPF (0-6); UROBILINOGEN, URINE AUTO 0.2 mg/dL (0.0-2.0); WBC, URINE AUTO TNTC /HPF (0-3)
[2017-05-17 19:30] LABS: SODIUM,RANDOM URINE < 10 MEQ/L
[2017-05-17] MEDS ORDERED: LABETALOL HCL 100 MG/20 ML VIAL IV ×2 (21:00→22:30)
[2017-05-17] MEDS: METOPROLOL TART 50 MG TAB PO (21:06)
[2017-05-17] MEDS: FUROSEMIDE 40 MG/4 ML VIAL (J1940) IV (21:07)
[2017-05-17] MEDS: ACETAMINOPHEN TAB 650MG DOSE (2X325MG) PO (21:07)
[2017-05-17] MEDS: MORPHINE 4 MG/ML 1ML VIAL/SYRINGE (J2270) IV (22:38)
[2017-05-17] MEDS: DAPTOmycin 500 MG in NS 50 ML IV (22:39)
[2017-05-17] MEDS: PIPERACILLIN/TAZOBACTAM SOD 2.25 GM in APPROPRIATE DILUENT 1 EA IV (23:22)
[2017-05-17 23:29] LABS: AMPHETAMINES LEVEL URINE NEGATIVE (NEGATIVE); BARBITURATES URINE NEGATIVE (NEGATIVE); BENZODIAZEPINES URINE NEGATIVE (NEGATIVE); CANNABINOIDS URINE NEGATIVE (NEGATIVE); COCAINE METABOLITE URINE NEGATIVE (NEGATIVE); METHADONE URINE NEGATIVE (NEGATIVE); OPIATES URINE POSITIVE (NEGATIVE); PHENCYCLIDINE URINE NEGATIVE (NEGATIVE)
[2017-05-17 23:34] LABS: TOTAL PROTEIN,RANDOM URINE 713.3 MG/DL (0.0-12.0)
[2017-05-18] MEDS: MORPHINE 4 MG/ML 1ML VIAL/SYRINGE (J2270) IV ×5 (02:44→20:18)
[2017-05-18] MEDS: PIPERACILLIN/TAZOBACTAM SOD 2.25 GM in APPROPRIATE DILUENT 1 EA IV ×3 (05:10→20:36)
[2017-05-18] MEDS: METOPROLOL TART 50 MG TAB PO ×3 (10:01→20:36)
[2017-05-18 12:14] LABS: HEMATOCRIT 21.2 % (42.0-52.0); MEAN CORPUSCULAR HEMOGLOBIN 26.5 pg (27.0-33.0); MEAN CORPUSCULAR VOLUME 80.3 fl (80.0-96.0); PLATELET COUNT, AUTOMATED 100 10^3/uL (150-450); RED BLOOD COUNT 2.64 10^6/uL (4.30-6.10); RED CELL DISTRIBUTION WIDTH 18.9 % (11.5-14.5)
[2017-05-18 12:27] LABS: INR 1.33; PROTHROMBIN TIME 16.8 SECONDS (12.4-14.5)
[2017-05-18 13:04] LABS: ANION GAP 15 MEQ/L (8-16); BLOOD UREA NITROGEN 129 MG/DL (7-18); CALCIUM LEVEL 7.4 MG/DL (8.5-10.1); CARBON DIOXIDE LEVEL 16 MEQ/L (21-32); CHLORIDE LEVEL 102 MEQ/L (98-107); CREATININE FOR GFR 5.11 MG/DL (0.70-1.30); GLOMERULAR FILTRATION RATE 14.6 (>60); GLUCOSE, FASTING 98 MG/DL (70-100); MAGNESIUM LEVEL 2.5 MG/DL (1.8-2.4); SODIUM LEVEL 133 MEQ/L (136-145)
[2017-05-18 13:07] LABS: POTASSIUM SERUM 5.6 MEQ/L (3.5-5.1)
[2017-05-18 13:09] LABS: CHOLESTEROL LEVEL 139 MG/DL (<200); CHOLESTEROL RISK RATIO 12.636 (<5); HDL CHOLESTEROL 11 MG/DL (>40); LDL CHOLESTEROL 61.6 MG/DL (<100); NON-HDL-C 128 MG/DL; TRIGLYCERIDES LEVEL 332 MG/DL (<150)
[2017-05-18] MEDS ORDERED: HEPARIN 1,000 UNITS/ML 10ML VIAL (FOR RADIOLOGY& DIALYSIS ONLY) As Ordered (13:24)
[2017-05-18] MEDS ORDERED: LIDOCAINE 2% MDV 20 ML VIAL As Ordered (13:25)
[2017-05-18 14:08] LABS: HEPATITIS B SURFACE ANTIBODY POSITIVE (POSITIVE)
[2017-05-18 14:19] LABS: HEPATITIS B SURFACE ANTIGEN NEGATIVE (NEGATIVE)
[2017-05-18 14:48] LABS: HEPATITIS B CORE ANTIBODY IGM NEGATIVE (NEGATIVE)
[2017-05-18 15:05] LABS: HEPATITIS C VIRUS ABY INDEX > 11.0 INDEX (<0.8)
[2017-05-18 17:55] LABS: IMMEDIATE SPIN CROSSMATCH 1 3
[2017-05-18] MEDS: LORazepam 2 MG/ML VIAL (J2060) IV (20:37)
[2017-05-18 20:51] LABS: HEMATOCRIT 25.4 % (42.0-52.0); HEMOGLOBIN 8.6 g/dl (13.5-17.5)
[2017-05-18 21:15] LABS: LACTIC ACID SEPSIS PROTOCOL 0.7 MMOL/L (0.4-2.0)
[2017-05-19] MEDS: MORPHINE 4 MG/ML 1ML VIAL/SYRINGE (J2270) IV ×6 (00:19→21:05)
[2017-05-19] MEDS: IPRATROPIUM 0.5MG/ALBUTEROL 2.5MG INH SOL UD 3ML (DUONEB)(J7620) NEB (01:35)
[2017-05-19] MEDS: PIPERACILLIN/TAZOBACTAM SOD 2.25 GM in APPROPRIATE DILUENT 1 EA IV ×2 (04:33→12:41)
[2017-05-19 06:16] LABS: HEMATOCRIT 22.1 % (42.0-52.0); HEMOGLOBIN 7.4 g/dl (13.5-17.5); MEAN CORPUSCULAR HEMOGLOBIN 27.2 pg (27.0-33.0); MEAN CORPUSCULAR HGB CONC 33.5 g/dl (32.0-36.5); MEAN CORPUSCULAR VOLUME 81.3 fl (80.0-96.0); PLATELET COUNT, AUTOMATED 106 10^3/uL (150-450); RED BLOOD COUNT 2.72 10^6/uL (4.30-6.10); RED CELL DISTRIBUTION WIDTH 18.3 % (11.5-14.5); WHITE BLOOD COUNT 11.5 10^3/uL (4.0-10.0)
[2017-05-19 06:36] LABS: ANION GAP 10 MEQ/L (8-16); BLOOD UREA NITROGEN 107 MG/DL (7-18); CALCIUM LEVEL 7.3 MG/DL (8.5-10.1); CARBON DIOXIDE LEVEL 22 MEQ/L (21-32); CHLORIDE LEVEL 102 MEQ/L (98-107); CREATININE FOR GFR 4.54 MG/DL (0.70-1.30); GLOMERULAR FILTRATION RATE 16.8 (>60); GLUCOSE, FASTING 100 MG/DL (70-100); MAGNESIUM LEVEL 2.3 MG/DL (1.8-2.4); SODIUM LEVEL 134 MEQ/L (136-145)
[2017-05-19 07:05] LABS: POTASSIUM SERUM 5.2 MEQ/L (3.5-5.1)
[2017-05-19 08:11] LABS: HEPATITIS B CORE ANTIBODY IGG Negative (Negative)
[2017-05-19] MEDS: METOPROLOL TART 50 MG TAB PO ×3 (09:37→21:00)
[2017-05-19] MEDS: HEPARIN 1,000 UNITS/ML 10ML VIAL (FOR RADIOLOGY& DIALYSIS ONLY) XX (12:30)
[2017-05-19 14:15] LABS: ANTINUCLEAR ANTIBODIES DIRECT Negative (Negative)
[2017-05-19 14:19] LABS: ESTIMATED AVERAGE GLUCOSE 105 MG/DL (60-110); HEMOGLOBIN A1c 5.3 %
[2017-05-19] MEDS: DAPTOmycin 500 MG in NS 50 ML IV (18:04)
[2017-05-20] MEDS: MORPHINE 4 MG/ML 1ML VIAL/SYRINGE (J2270) IV ×6 (02:55→21:10)
[2017-05-20 05:29] LABS: HEMATOCRIT 22.5 % (42.0-52.0); HEMOGLOBIN 7.4 g/dl (13.5-17.5); MEAN CORPUSCULAR HEMOGLOBIN 26.7 pg (27.0-33.0); MEAN CORPUSCULAR HGB CONC 32.9 g/dl (32.0-36.5); MEAN CORPUSCULAR VOLUME 81.2 fl (80.0-96.0); PLATELET COUNT, AUTOMATED 122 10^3/uL (150-450); RED BLOOD COUNT 2.77 10^6/uL (4.30-6.10); RED CELL DISTRIBUTION WIDTH 17.5 % (11.5-14.5); WHITE BLOOD COUNT 11.9 10^3/uL (4.0-10.0)
[2017-05-20 05:46] LABS: ANION GAP 8 MEQ/L (8-16); BLOOD UREA NITROGEN 78 MG/DL (7-18); CALCIUM LEVEL 6.9 MG/DL (8.5-10.1); CARBON DIOXIDE LEVEL 26 MEQ/L (21-32); CHLORIDE LEVEL 103 MEQ/L (98-107); COMPLEMENT C3 24.4 MG/DL (90-180); GLUCOSE, FASTING 96 MG/DL (70-100); MAGNESIUM LEVEL 2.3 MG/DL (1.8-2.4); POTASSIUM SERUM 4.8 MEQ/L (3.5-5.1); SODIUM LEVEL 137 MEQ/L (136-145)
[2017-05-20 06:07] LABS: COMPLEMENT C4 4.9 MG/DL (10-40)
[2017-05-20] MEDS: DOCUSATE SODIUM 100 MG CAP PO ×2 (09:00→21:08)
[2017-05-20] MEDS: METOPROLOL TART 50 MG TAB PO ×3 (10:00→21:06)
[2017-05-20 10:26] LABS: REASON FOR REVIEW ANEMIA / RBC MORPH; SLIDE REVIEW Report; SOURCE PERIPHERAL SMEAR
[2017-05-20 10:27] LABS: RETIC HEMOGLOBIN EQUIVALENT 31.3 pg (24-36); RETICULOCYTE # 49.9 10^9/L (17-77); RETICULOCYTE % 1.8 % (0.5-1.5)
[2017-05-20 12:39] LABS: FOLATE 4.7 NG/ML (>5.4); VITAMIN B12 LEVEL > 2000 PG/ML (247-911)
[2017-05-20 12:52] LABS: BILIRUBIN,DIRECT 0.3 MG/DL (0.0-0.2); BILIRUBIN,TOTAL 0.6 MG/DL (0.2-1.0); IRON (FE) 19 UG/DL (65-175); PERCENT SATURATION 21.8 % (19.7-50.0); TOTAL IRON BINDING CAPACITY 87 UG/DL (250-450)
[2017-05-20 12:52] LABS: LDH LACTATE DEHYDROGENASE 199 U/L (87-241)
[2017-05-20 13:40] LABS: IMMEDIATE SPIN CROSSMATCH 1 2
[2017-05-20 13:59] LABS: FERRITIN 4235 NG/ML (26-388)
[2017-05-20] MEDS: ACETAMINOPHEN TAB 650MG DOSE (2X325MG) PO (16:26)
[2017-05-20] MEDS: LORazepam 2 MG/ML VIAL (J2060) IV (16:43)
[2017-05-20] MEDS: HEPARIN 1,000 UNITS/ML 10ML VIAL (FOR RADIOLOGY& DIALYSIS ONLY) XX (17:20)
[2017-05-20] MEDS: SODIUM CHLORIDE 0.9% INJ 10 ML SYR IV ×2 (18:00→21:13)
[2017-05-21] MEDS: MORPHINE 4 MG/ML 1ML VIAL/SYRINGE (J2270) IV ×6 (02:56→23:19)
[2017-05-21] MEDS: ACETAMINOPHEN TAB 650MG DOSE (2X325MG) PO ×3 (04:10→20:23)
[2017-05-21 06:52] LABS: HEMATOCRIT 23.4 % (42.0-52.0); HEMOGLOBIN 7.7 g/dl (13.5-17.5); MEAN CORPUSCULAR HEMOGLOBIN 27.9 pg (27.0-33.0); MEAN CORPUSCULAR HGB CONC 32.9 g/dl (32.0-36.5); MEAN CORPUSCULAR VOLUME 84.8 fl (80.0-96.0); PLATELET COUNT, AUTOMATED 100 10^3/uL (150-450); RED BLOOD COUNT 2.76 10^6/uL (4.30-6.10); RED CELL DISTRIBUTION WIDTH 17.3 % (11.5-14.5); WHITE BLOOD COUNT 9.3 10^3/uL (4.0-10.0)
[2017-05-21 07:02] LABS: ANION GAP 6 MEQ/L (8-16); BLOOD UREA NITROGEN 69 MG/DL (7-18); CALCIUM LEVEL 7.1 MG/DL (8.5-10.1); CARBON DIOXIDE LEVEL 28 MEQ/L (21-32); CHLORIDE LEVEL 101 MEQ/L (98-107); CREATININE FOR GFR 3.98 MG/DL (0.70-1.30); GLOMERULAR FILTRATION RATE 19.5 (>60); GLUCOSE, FASTING 128 MG/DL (70-100); MAGNESIUM LEVEL 2.1 MG/DL (1.8-2.4); POTASSIUM SERUM 4.6 MEQ/L (3.5-5.1); SODIUM LEVEL 135 MEQ/L (136-145)
[2017-05-21] MEDS: METOPROLOL TART 50 MG TAB PO ×3 (08:05→20:22)
[2017-05-21 08:06] LABS: HAPTOGLOBIN 236 mg/dL (34-200)
[2017-05-21] MEDS: DOCUSATE SODIUM 100 MG CAP PO ×3 (08:32→22:37)
[2017-05-21] MEDS: SENNA 8.6 MG TAB (SENOKOT) PO ×2 (09:00→21:00)
[2017-05-21] MEDS ORDERED: FLEET ENEMA PR (12:30)
[2017-05-21] MEDS: DAPTOmycin 750 MG in NS 50 ML IV (17:55)
[2017-05-21] MEDS: SODIUM CHLORIDE 0.9% INJ 10 ML SYR IV ×2 (17:55→23:19)
[2017-05-22] MEDS: MORPHINE 4 MG/ML 1ML VIAL/SYRINGE (J2270) IV ×5 (04:00→22:00)
[2017-05-22] MEDS: SODIUM CHLORIDE 0.9% INJ 10 ML SYR IV ×4 (04:00→18:10)
[2017-05-22 04:32] LABS: HEMATOCRIT 23.3 % (42.0-52.0); HEMOGLOBIN 7.4 g/dl (13.5-17.5); MEAN CORPUSCULAR HEMOGLOBIN 27.4 pg (27.0-33.0); MEAN CORPUSCULAR HGB CONC 31.8 g/dl (32.0-36.5); MEAN CORPUSCULAR VOLUME 86.3 fl (80.0-96.0); PLATELET COUNT, AUTOMATED 115 10^3/uL (150-450); RED CELL DISTRIBUTION WIDTH 17.4 % (11.5-14.5); WHITE BLOOD COUNT 12.4 10^3/uL (4.0-10.0)
[2017-05-22 05:03] LABS: ANION GAP 9 MEQ/L (8-16); BLOOD UREA NITROGEN 76 MG/DL (7-18); CALCIUM LEVEL 7.3 MG/DL (8.5-10.1); CARBON DIOXIDE LEVEL 25 MEQ/L (21-32); CHLORIDE LEVEL 101 MEQ/L (98-107); CREATININE FOR GFR 4.73 MG/DL (0.70-1.30); GLUCOSE, FASTING 95 MG/DL (70-100); MAGNESIUM LEVEL 2.4 MG/DL (1.8-2.4); POTASSIUM SERUM 5.1 MEQ/L (3.5-5.1); SODIUM LEVEL 135 MEQ/L (136-145)
[2017-05-22] MEDS: LORazepam 2 MG/ML VIAL (J2060) IV (06:23)
[2017-05-22] MEDS: ACETAMINOPHEN TAB 650MG DOSE (2X325MG) PO (07:44)
[2017-05-22 07:48] LABS: ABG BASE EXCESS -3.1 (-2.0-2.0); ABG HCO3 20.3 MEQ/L (22.0-26.0); ABG O2 SATURATION 96.5 % (95.0-99.0); ABG PARTIAL PRESSURE CO2 29.7 mmHg (35.0-45.0); ABG PARTIAL PRESSURE O2 89.8 mmHg (75.0-100.0); ABG STANDARD HCO3 21.9 MEQ/L (22.0-26.0); ABG TOTAL CO2 21.2 MEQ/L (22.0-29.0); ABG pH (ARTERIAL) 7.452 UNITS (7.350-7.450)
[2017-05-22] MEDS: DOCUSATE SODIUM 100 MG CAP PO ×2 (09:56→20:07)
[2017-05-22] MEDS: SENNA 8.6 MG TAB (SENOKOT) PO ×2 (09:57→20:07)
[2017-05-22] MEDS: METOPROLOL TART 50 MG TAB PO ×3 (09:57→20:07)
[2017-05-23 00:06] LABS: HCV RNA NAA QUALITATIVE Positive (Negative)
[2017-05-23] MEDS: MORPHINE 4 MG/ML 1ML VIAL/SYRINGE (J2270) IV ×6 (02:10→22:07)
[2017-05-23] MEDS: SODIUM CHLORIDE 0.9% INJ 10 ML SYR IV ×3 (06:00→22:07)
[2017-05-23 06:16] LABS: HEMATOCRIT 22.8 % (42.0-52.0); HEMOGLOBIN 7.5 g/dl (13.5-17.5); MEAN CORPUSCULAR HEMOGLOBIN 27.5 pg (27.0-33.0); MEAN CORPUSCULAR HGB CONC 32.9 g/dl (32.0-36.5); MEAN CORPUSCULAR VOLUME 83.5 fl (80.0-96.0); PLATELET COUNT, AUTOMATED 142 10^3/uL (150-450); RED BLOOD COUNT 2.73 10^6/uL (4.30-6.10); RED CELL DISTRIBUTION WIDTH 17.1 % (11.5-14.5); WHITE BLOOD COUNT 11.4 10^3/uL (4.0-10.0)
[2017-05-23 06:34] LABS: ANION GAP 9 MEQ/L (8-16); BLOOD UREA NITROGEN 96 MG/DL (7-18); CALCIUM LEVEL 7.1 MG/DL (8.5-10.1); CARBON DIOXIDE LEVEL 23 MEQ/L (21-32); CHLORIDE LEVEL 100 MEQ/L (98-107); CREATININE FOR GFR 5.18 MG/DL (0.70-1.30); GLOMERULAR FILTRATION RATE 14.4 (>60); GLUCOSE, FASTING 102 MG/DL (70-100); MAGNESIUM LEVEL 2.4 MG/DL (1.8-2.4); SODIUM LEVEL 132 MEQ/L (136-145)
[2017-05-23 06:40] LABS: POTASSIUM SERUM 5.5 MEQ/L (3.5-5.1)
[2017-05-23] MEDS: DOCUSATE SODIUM 100 MG CAP PO ×2 (08:07→20:37)
[2017-05-23] MEDS: METOPROLOL TART 50 MG TAB PO ×4 (08:07→20:38)
[2017-05-23] MEDS: SENNA 8.6 MG TAB (SENOKOT) PO ×2 (08:07→20:38)
[2017-05-23] MEDS: HEPARIN 1,000 UNITS/ML 10ML VIAL (FOR RADIOLOGY& DIALYSIS ONLY) IV (12:15)
[2017-05-23] MEDS: ACETAMINOPHEN TAB 650MG DOSE (2X325MG) PO ×2 (12:39→20:37)
[2017-05-23 16:45] LABS: IMMEDIATE SPIN CROSSMATCH 1 1
[2017-05-23] MEDS: DAPTOmycin 750 MG in NS 50 ML IV (17:55)
[2017-05-23] MEDS: GENTAMICIN 120 MG in D5W 50 ML IV (22:06)
[2017-05-24] MEDS: SODIUM CHLORIDE 0.9% INJ 10 ML SYR IV ×3 (05:13→16:11)
[2017-05-24] MEDS: MORPHINE 4 MG/ML 1ML VIAL/SYRINGE (J2270) IV ×5 (05:13→21:23)
[2017-05-24 05:32] LABS: HEMOGLOBIN 7.1 g/dl (13.5-17.5); MEAN CORPUSCULAR HEMOGLOBIN 27.5 pg (27.0-33.0); MEAN CORPUSCULAR HGB CONC 32.3 g/dl (32.0-36.5); MEAN CORPUSCULAR VOLUME 85.3 fl (80.0-96.0); RED BLOOD COUNT 2.58 10^6/uL (4.30-6.10); RED CELL DISTRIBUTION WIDTH 17.3 % (11.5-14.5); WHITE BLOOD COUNT 5.7 10^3/uL (4.0-10.0)
[2017-05-24 05:49] LABS: IMMATURE PLATELET FRACTION % 2.7 % (0.0-10.9); PLATELET COUNT, AUTOMATED 96 10^3/uL (150-450)
[2017-05-24 05:53] LABS: ERYTHROCYTE SEDIMENTATION RATE 106 mm/hr (0-15)
[2017-05-24 05:55] LABS: ANION GAP 7 MEQ/L (8-16); BLOOD UREA NITROGEN 61 MG/DL (7-18); CALCIUM LEVEL 6.9 MG/DL (8.5-10.1); CARBON DIOXIDE LEVEL 28 MEQ/L (21-32); CHLORIDE LEVEL 101 MEQ/L (98-107); CREATININE FOR GFR 3.92 MG/DL (0.70-1.30); GLOMERULAR FILTRATION RATE 19.9 (>60); GLUCOSE, FASTING 99 MG/DL (70-100); MAGNESIUM LEVEL 2.3 MG/DL (1.8-2.4); POTASSIUM SERUM 4.5 MEQ/L (3.5-5.1); SODIUM LEVEL 136 MEQ/L (136-145)
[2017-05-24] MEDS: ACETAMINOPHEN TAB 650MG DOSE (2X325MG) PO (07:33)
[2017-05-24] MEDS: METOPROLOL TART 50 MG TAB PO ×4 (07:42→21:23)
[2017-05-24] MEDS: ONDANSETRON 4MG/2ML VIAL (J2405) IV (07:54)
[2017-05-24] MEDS: DOCUSATE SODIUM 100 MG CAP PO ×2 (08:51→21:23)
[2017-05-24] MEDS: SENNA 8.6 MG TAB (SENOKOT) PO ×2 (08:51→21:31)
[2017-05-24 15:32] LABS: HEMATOCRIT 21.6 % (42.0-52.0); MEAN CORPUSCULAR HEMOGLOBIN 27.6 pg (27.0-33.0); MEAN CORPUSCULAR HGB CONC 32.4 g/dl (32.0-36.5); RED BLOOD COUNT 2.54 10^6/uL (4.30-6.10); RED CELL DISTRIBUTION WIDTH 17.5 % (11.5-14.5); WHITE BLOOD COUNT 6.3 10^3/uL (4.0-10.0)
[2017-05-24 15:34] LABS: PLATELET COUNT, AUTOMATED 99 10^3/uL (150-450)
[2017-05-25] MEDS: MORPHINE 4 MG/ML 1ML VIAL/SYRINGE (J2270) IV ×5 (04:12→20:28)
[2017-05-25] MEDS: SODIUM CHLORIDE 0.9% INJ 10 ML SYR IV ×2 (04:12→18:00)
[2017-05-25 06:06] LABS: GENTAMICIN LEVEL RANDOM 1.9 MCG/ML
[2017-05-25] MEDS: METOPROLOL TART 50 MG TAB PO ×2 (07:54→16:26)
[2017-05-25] MEDS: DOCUSATE SODIUM 100 MG CAP PO ×2 (07:55→20:33)
[2017-05-25] MEDS: SENNA 8.6 MG TAB (SENOKOT) PO ×3 (07:55→20:33)
[2017-05-25 08:17] LABS: BASO % 0.2 % (0.0-1.0); EOS # 0.2 10^3/uL (0.0-0.50); EOS % 1.9 % (0.0-3.0); HEMOGLOBIN 7.1 g/dl (13.5-17.5); IMMATURE GRANULOCYTE % 0.7 % (0-3.0); LYMPH # 0.9 10^3/uL (1.5-6.5); LYMPH % 11.5 % (24.0-44.0); MEAN CORPUSCULAR HEMOGLOBIN 27.4 pg (27.0-33.0); MEAN CORPUSCULAR HGB CONC 32.3 g/dl (32.0-36.5); MEAN CORPUSCULAR VOLUME 84.9 fl (80.0-96.0); MONO # 0.8 10^3/uL (0.0-0.8); MONO % 9.9 % (0.0-5.0); NEUTROPHILS # 6.1 10^3/uL (1.8-7.7); NEUTROPHILS % 75.8 % (36.0-66.0); PLATELET COUNT, AUTOMATED 127 10^3/uL (150-450); RED BLOOD COUNT 2.59 10^6/uL (4.30-6.10); RED CELL DISTRIBUTION WIDTH 17.1 % (11.5-14.5); WHITE BLOOD COUNT 8.1 10^3/uL (4.0-10.0)
[2017-05-25 08:49] LABS: ALBUMIN 1.1 GM/DL (3.2-5.2); ALBUMIN/GLOBULIN RATIO 0.22 (1.00-1.93); ALKALINE PHOSPHATASE 249 U/L (45-117); ALT/SGPT 8 U/L (12-78); ANION GAP 9 MEQ/L (8-16); AST/SGOT 33 U/L (7-37); BILIRUBIN,TOTAL 0.6 MG/DL (0.2-1.0); BLOOD UREA NITROGEN 69 MG/DL (7-18); CALCIUM LEVEL 6.9 MG/DL (8.5-10.1); CARBON DIOXIDE LEVEL 25 MEQ/L (21-32); CHLORIDE LEVEL 100 MEQ/L (98-107); CREATININE FOR GFR 4.79 MG/DL (0.70-1.30); GLOMERULAR FILTRATION RATE 15.8 (>60); GLUCOSE, FASTING 101 MG/DL (70-100); MAGNESIUM LEVEL 2.3 MG/DL (1.8-2.4); POTASSIUM SERUM 4.7 MEQ/L (3.5-5.1); SODIUM LEVEL 134 MEQ/L (136-145); TOTAL PROTEIN 6.1 GM/DL (6.4-8.2)
[2017-05-25] MEDS ORDERED: GENTAMICIN INTERMITTENT/PULSE DOSING BY CLINICAL PHARMACIST PER DOSING PROTOCOL XX (13:30)
[2017-05-25 14:13] LABS: IMMEDIATE SPIN CROSSMATCH 1 2
[2017-05-25] MEDS: DAPTOmycin 750 MG in NS 50 ML IV (17:37)
[2017-05-25] MEDS: GENTAMICIN 120 MG in D5W 50 ML IV (18:07)
[2017-05-26 00:06] LABS: CYTOPLASMIC NEUTROP AB ANCA-C <1:20 titer (Neg:<1:20); PERINUCLEAR AB ANCA-P <1:20 titer (Neg:<1:20)
[2017-05-26] MEDS: MORPHINE 4 MG/ML 1ML VIAL/SYRINGE (J2270) IV ×6 (00:30→21:22)
[2017-05-26] MEDS: METOPROLOL TART 50 MG TAB PO ×4 (00:30→21:21)
[2017-05-26] MEDS: ACETAMINOPHEN TAB 650MG DOSE (2X325MG) PO (04:33)
[2017-05-26 05:41] LABS: BASO % 0.4 % (0.0-1.0); EOS # 0.2 10^3/uL (0.0-0.50); EOS % 2.4 % (0.0-3.0); HEMATOCRIT 26.1 % (42.0-52.0); HEMOGLOBIN 8.5 g/dl (13.5-17.5); IMMATURE GRANULOCYTE % 0.5 % (0-3.0); LYMPH % 12.2 % (24.0-44.0); MEAN CORPUSCULAR HEMOGLOBIN 27.4 pg (27.0-33.0); MEAN CORPUSCULAR HGB CONC 32.6 g/dl (32.0-36.5); MEAN CORPUSCULAR VOLUME 84.2 fl (80.0-96.0); MONO # 0.9 10^3/uL (0.0-0.8); MONO % 11.3 % (0.0-5.0); NEUTROPHILS % 73.2 % (36.0-66.0); PLATELET COUNT, AUTOMATED 145 10^3/uL (150-450); RED CELL DISTRIBUTION WIDTH 17.1 % (11.5-14.5); WHITE BLOOD COUNT 8.2 10^3/uL (4.0-10.0)
[2017-05-26] MEDS: SODIUM CHLORIDE 0.9% INJ 10 ML SYR IV ×2 (05:46→17:18)
[2017-05-26 06:00] LABS: ALBUMIN 1.1 GM/DL (3.2-5.2); ALBUMIN/GLOBULIN RATIO 0.21 (1.00-1.93); ALKALINE PHOSPHATASE 207 U/L (45-117); ALT/SGPT 10 U/L (12-78); ANION GAP 8 MEQ/L (8-16); AST/SGOT 24 U/L (7-37); BILIRUBIN,TOTAL 0.6 MG/DL (0.2-1.0); BLOOD UREA NITROGEN 46 MG/DL (7-18); CALCIUM LEVEL 6.9 MG/DL (8.5-10.1); CARBON DIOXIDE LEVEL 27 MEQ/L (21-32); CHLORIDE LEVEL 101 MEQ/L (98-107); CREATININE FOR GFR 3.68 MG/DL (0.70-1.30); GLOMERULAR FILTRATION RATE 21.4 (>60); GLUCOSE, FASTING 101 MG/DL (70-100); MAGNESIUM LEVEL 2.1 MG/DL (1.8-2.4); POTASSIUM SERUM 4.5 MEQ/L (3.5-5.1); SODIUM LEVEL 136 MEQ/L (136-145); TOTAL PROTEIN 6.3 GM/DL (6.4-8.2)
[2017-05-26] MEDS: DOCUSATE SODIUM 100 MG CAP PO ×2 (08:13→21:21)
[2017-05-26] MEDS: SENNA 8.6 MG TAB (SENOKOT) PO ×2 (08:14→21:21)
[2017-05-27] MEDS: ACETAMINOPHEN TAB 650MG DOSE (2X325MG) PO (00:23)
[2017-05-27] MEDS: ONDANSETRON 4MG/2ML VIAL (J2405) IV (00:54)
[2017-05-27] MEDS: MORPHINE 4 MG/ML 1ML VIAL/SYRINGE (J2270) IV ×6 (01:06→21:54)
[2017-05-27 01:19] LABS: ABG HCO3 25.2 MEQ/L (22.0-26.0); ABG PARTIAL PRESSURE O2 71.9 mmHg (75.0-100.0); ABG STANDARD HCO3 26.2 MEQ/L (22.0-26.0); ABG TOTAL CO2 26.2 MEQ/L (22.0-29.0); ABG pH (ARTERIAL) 7.487 UNITS (7.350-7.450)
[2017-05-27] MEDS: SODIUM CHLORIDE 0.9% INJ 10 ML SYR IV ×4 (05:18→17:46)
[2017-05-27 06:12] LABS: BASO % 0.3 % (0.0-1.0); EOS # 0.3 10^3/uL (0.0-0.50); EOS % 2.3 % (0.0-3.0); HEMATOCRIT 27.2 % (42.0-52.0); HEMOGLOBIN 8.9 g/dl (13.5-17.5); IMMATURE GRANULOCYTE % 0.9 % (0-3.0); LYMPH # 1.1 10^3/uL (1.5-6.5); LYMPH % 8.1 % (24.0-44.0); MEAN CORPUSCULAR HEMOGLOBIN 27.6 pg (27.0-33.0); MEAN CORPUSCULAR HGB CONC 32.7 g/dl (32.0-36.5); MEAN CORPUSCULAR VOLUME 84.5 fl (80.0-96.0); MONO % 7.2 % (0.0-5.0); NEUTROPHILS % 81.2 % (36.0-66.0); PLATELET COUNT, AUTOMATED 168 10^3/uL (150-450); RED BLOOD COUNT 3.22 10^6/uL (4.30-6.10); RED CELL DISTRIBUTION WIDTH 16.5 % (11.5-14.5); WHITE BLOOD COUNT 13.5 10^3/uL (4.0-10.0)
[2017-05-27 06:35] LABS: ALBUMIN 1.1 GM/DL (3.2-5.2); ALBUMIN/GLOBULIN RATIO 0.22 (1.00-1.93); ALKALINE PHOSPHATASE 252 U/L (45-117); ALT/SGPT 7 U/L (12-78); ANION GAP 8 MEQ/L (8-16); AST/SGOT 22 U/L (7-37); BILIRUBIN,TOTAL 0.7 MG/DL (0.2-1.0); BLOOD UREA NITROGEN 53 MG/DL (7-18); CALCIUM LEVEL 6.9 MG/DL (8.5-10.1); CARBON DIOXIDE LEVEL 27 MEQ/L (21-32); CHLORIDE LEVEL 101 MEQ/L (98-107); CREATININE FOR GFR 4.36 MG/DL (0.70-1.30); GENTAMICIN LEVEL RANDOM 2.1 MCG/ML; GLOMERULAR FILTRATION RATE 17.6 (>60); GLUCOSE, FASTING 84 MG/DL (70-100); MAGNESIUM LEVEL 2.1 MG/DL (1.8-2.4); POTASSIUM SERUM 4.3 MEQ/L (3.5-5.1); SODIUM LEVEL 136 MEQ/L (136-145); TOTAL PROTEIN 6.2 GM/DL (6.4-8.2)
[2017-05-27] MEDS: DOCUSATE SODIUM 100 MG CAP PO ×2 (06:46→21:53)
[2017-05-27] MEDS: SENNA 8.6 MG TAB (SENOKOT) PO ×2 (06:47→21:00)
[2017-05-27] MEDS: METOPROLOL TART 50 MG TAB PO ×3 (09:21→21:53)
[2017-05-27 10:49] LABS: APPEARANCE, URINE CLOUDY (CLEAR); BACTERIA, URINE AUTO 1+ (NEGATIVE); BILIRUBIN, URINE AUTO NEGATIVE (NEGATIVE); BLOOD, URINE BLOOD 3+ (NEGATIVE); COLOR, URINE AMBER (YELLOW); GLUCOSE, URINE (UA) AUTO NEGATIVE (NEGATIVE); KETONE, URINE AUTO NEGATIVE (NEGATIVE); LEUKOCYTE ESTERASE, URINE AUTO 2+ (NEGATIVE); NITRITE, URINE AUTO NEGATIVE (NEGATIVE); PROTEIN, URINE AUTO 3+ mg/dL (NEGATIVE); RBC, URINE AUTO TNTC /HPF (0-3); SQUAMOUS EPITHELIAL CELL UR AU 3 /HPF (0-6); UROBILINOGEN, URINE AUTO 0.2 mg/dL (0.0-2.0); WBC, URINE AUTO TNTC /HPF (0-3); YEAST LIKE CELL URINE AUTO SMALL
[2017-05-27] MEDS: DAPTOmycin 750 MG in NS 50 ML IV (17:51)
[2017-05-27 19:25] LABS: KETONE, URINE AUTO RFX NEGATIVE (NEGATIVE); LEUKOCYTE ESTERASE UR AUTO RFX 1+ (NEGATIVE); NITRITE, URINE AUTO RFX NEGATIVE (NEGATIVE); RBC, URINE AUTO RFX TNTC /HPF (0-3); SPECIFIC GRAVITY UR AUTO RFX 1.019 (1.002-1.035); SQUAM EPITHELIAL CELL UR AURFX 1 /HPF (0-6); WBC, URINE AUTO RFX 142 /HPF (0-3)
[2017-05-28] MEDS: MORPHINE 4 MG/ML 1ML VIAL/SYRINGE (J2270) IV ×5 (04:10→20:27)
[2017-05-28 04:28] LABS: BASO % 0.4 % (0.0-1.0); EOS # 0.3 10^3/uL (0.0-0.50); EOS % 3.4 % (0.0-3.0); HEMATOCRIT 26.7 % (42.0-52.0); HEMOGLOBIN 8.6 g/dl (13.5-17.5); IMMATURE GRANULOCYTE % 0.6 % (0-3.0); LYMPH # 0.9 10^3/uL (1.5-6.5); LYMPH % 10.7 % (24.0-44.0); MEAN CORPUSCULAR HEMOGLOBIN 27.8 pg (27.0-33.0); MEAN CORPUSCULAR HGB CONC 32.2 g/dl (32.0-36.5); MEAN CORPUSCULAR VOLUME 86.4 fl (80.0-96.0); MONO # 0.8 10^3/uL (0.0-0.8); NEUTROPHILS # 6.2 10^3/uL (1.8-7.7); NEUTROPHILS % 74.9 % (36.0-66.0); PLATELET COUNT, AUTOMATED 171 10^3/uL (150-450); RED BLOOD COUNT 3.09 10^6/uL (4.30-6.10); RED CELL DISTRIBUTION WIDTH 16.3 % (11.5-14.5); WHITE BLOOD COUNT 8.2 10^3/uL (4.0-10.0)
[2017-05-28 04:48] LABS: ALBUMIN 1.1 GM/DL (3.2-5.2); ALBUMIN/GLOBULIN RATIO 0.21 (1.00-1.93); ALKALINE PHOSPHATASE 235 U/L (45-117); ALT/SGPT < 6 U/L (12-78); ANION GAP 10 MEQ/L (8-16); AST/SGOT 18 U/L (7-37); BILIRUBIN,TOTAL 0.6 MG/DL (0.2-1.0); BLOOD UREA NITROGEN 55 MG/DL (7-18); CALCIUM LEVEL 6.9 MG/DL (8.5-10.1); CARBON DIOXIDE LEVEL 25 MEQ/L (21-32); CHLORIDE LEVEL 100 MEQ/L (98-107); CREATININE FOR GFR 4.75 MG/DL (0.70-1.30); GLOMERULAR FILTRATION RATE 15.9 (>60); GLUCOSE, FASTING 111 MG/DL (70-100); MAGNESIUM LEVEL 2.2 MG/DL (1.8-2.4); POTASSIUM SERUM 4.7 MEQ/L (3.5-5.1); SODIUM LEVEL 135 MEQ/L (136-145); TOTAL PROTEIN 6.3 GM/DL (6.4-8.2)
[2017-05-28] MEDS: SODIUM CHLORIDE 0.9% INJ 10 ML SYR IV ×2 (06:00→18:27)
[2017-05-28] MEDS: METOPROLOL TART 50 MG TAB PO ×3 (06:18→20:28)
[2017-05-28] MEDS: SENNA 8.6 MG TAB (SENOKOT) PO ×2 (06:20→20:28)
[2017-05-28] MEDS: DOCUSATE SODIUM 100 MG CAP PO ×2 (06:20→20:28)
[2017-05-28] MEDS: HEPARIN 1,000 UNITS/ML 10ML VIAL (FOR RADIOLOGY& DIALYSIS ONLY) XX (15:45)
[2017-05-28] MEDS: HEPARIN 1,000 UNITS/ML 10ML VIAL (FOR RADIOLOGY& DIALYSIS ONLY) IV (15:45)
[2017-05-28] MEDS ORDERED: DARBEPOETIN 100 MCG/0.5 ML *DIALYSIS* SYRINGE (J0882) IV (16:45)
[2017-05-29] MEDS: MORPHINE 4 MG/ML 1ML VIAL/SYRINGE (J2270) IV ×6 (00:31→21:25)
[2017-05-29] MEDS: ACETAMINOPHEN TAB 650MG DOSE (2X325MG) PO (00:31)
[2017-05-29 04:44] LABS: BASO % 0.3 % (0.0-1.0); EOS # 0.2 10^3/uL (0.0-0.50); HEMATOCRIT 24.5 % (42.0-52.0); HEMOGLOBIN 7.7 g/dl (13.5-17.5); IMMATURE GRANULOCYTE % 0.9 % (0-3.0); LYMPH % 15.1 % (24.0-44.0); MEAN CORPUSCULAR HEMOGLOBIN 27.7 pg (27.0-33.0); MEAN CORPUSCULAR HGB CONC 31.4 g/dl (32.0-36.5); MEAN CORPUSCULAR VOLUME 88.1 fl (80.0-96.0); MONO # 0.9 10^3/uL (0.0-0.8); MONO % 13.8 % (0.0-5.0); NEUTROPHILS # 4.5 10^3/uL (1.8-7.7); NEUTROPHILS % 66.9 % (36.0-66.0); PLATELET COUNT, AUTOMATED 169 10^3/uL (150-450); RED BLOOD COUNT 2.78 10^6/uL (4.30-6.10); RED CELL DISTRIBUTION WIDTH 15.9 % (11.5-14.5); WHITE BLOOD COUNT 6.7 10^3/uL (4.0-10.0)
[2017-05-29] MEDS: SODIUM CHLORIDE 0.9% INJ 10 ML SYR IV ×3 (04:46→21:24)
[2017-05-29 05:09] LABS: ALBUMIN 1.1 GM/DL (3.2-5.2); ALBUMIN/GLOBULIN RATIO 0.21 (1.00-1.93); ALKALINE PHOSPHATASE 184 U/L (45-117); ALT/SGPT < 6 U/L (12-78); ANION GAP 8 MEQ/L (8-16); AST/SGOT 19 U/L (7-37); BILIRUBIN,TOTAL 0.5 MG/DL (0.2-1.0); BLOOD UREA NITROGEN 37 MG/DL (7-18); CALCIUM LEVEL 6.8 MG/DL (8.5-10.1); CARBON DIOXIDE LEVEL 28 MEQ/L (21-32); CHLORIDE LEVEL 101 MEQ/L (98-107); CREATININE FOR GFR 3.92 MG/DL (0.70-1.30); GENTAMICIN LEVEL RANDOM 0.6 MCG/ML; GLOMERULAR FILTRATION RATE 19.9 (>60); GLUCOSE, FASTING 89 MG/DL (70-100); MAGNESIUM LEVEL 2.1 MG/DL (1.8-2.4); POTASSIUM SERUM 4.3 MEQ/L (3.5-5.1); SODIUM LEVEL 137 MEQ/L (136-145); TOTAL PROTEIN 6.3 GM/DL (6.4-8.2)
[2017-05-29] MEDS: DOCUSATE SODIUM 100 MG CAP PO ×2 (08:15→21:24)
[2017-05-29] MEDS: SENNA 8.6 MG TAB (SENOKOT) PO ×2 (08:15→21:24)
[2017-05-29] MEDS: METOPROLOL TART 50 MG TAB PO ×3 (08:15→21:24)
[2017-05-29] MEDS: GENTAMICIN 100 MG in APPROPRIATE DILUENT 1 EA IV (12:12)
[2017-05-29 13:02] LABS: IMMEDIATE SPIN CROSSMATCH 1 1
[2017-05-29] MEDS: DAPTOmycin 750 MG in NS 50 ML IV (17:23)
[2017-05-30] MEDS: MORPHINE 4 MG/ML 1ML VIAL/SYRINGE (J2270) IV ×6 (04:05→20:23)
[2017-05-30] MEDS: SODIUM CHLORIDE 0.9% INJ 10 ML SYR IV ×2 (05:10→17:06)
[2017-05-30 05:20] LABS: BASO % 0.3 % (0.0-1.0); EOS # 0.2 10^3/uL (0.0-0.50); EOS % 1.5 % (0.0-3.0); HEMATOCRIT 27.9 % (42.0-52.0); HEMOGLOBIN 8.9 g/dl (13.5-17.5); IMMATURE GRANULOCYTE % 0.8 % (0-3.0); LYMPH # 0.9 10^3/uL (1.5-6.5); LYMPH % 9.3 % (24.0-44.0); MEAN CORPUSCULAR HEMOGLOBIN 27.6 pg (27.0-33.0); MEAN CORPUSCULAR HGB CONC 31.9 g/dl (32.0-36.5); MEAN CORPUSCULAR VOLUME 86.6 fl (80.0-96.0); MONO # 0.8 10^3/uL (0.0-0.8); MONO % 7.8 % (0.0-5.0); NEUTROPHILS # 7.9 10^3/uL (1.8-7.7); NEUTROPHILS % 80.3 % (36.0-66.0); PLATELET COUNT, AUTOMATED 215 10^3/uL (150-450); RED BLOOD COUNT 3.22 10^6/uL (4.30-6.10); RED CELL DISTRIBUTION WIDTH 15.8 % (11.5-14.5); WHITE BLOOD COUNT 9.9 10^3/uL (4.0-10.0)
[2017-05-30 05:42] LABS: ALBUMIN 1.1 GM/DL (3.2-5.2); ALBUMIN/GLOBULIN RATIO 0.19 (1.00-1.93); ALKALINE PHOSPHATASE 195 U/L (45-117); ALT/SGPT < 6 U/L (12-78); ANION GAP 6 MEQ/L (8-16); AST/SGOT 20 U/L (7-37); BILIRUBIN,TOTAL 0.5 MG/DL (0.2-1.0); BLOOD UREA NITROGEN 43 MG/DL (7-18); CALCIUM LEVEL 7.3 MG/DL (8.5-10.1); CARBON DIOXIDE LEVEL 27 MEQ/L (21-32); CHLORIDE LEVEL 103 MEQ/L (98-107); CREATININE FOR GFR 4.45 MG/DL (0.70-1.30); GLOMERULAR FILTRATION RATE 17.2 (>60); GLUCOSE, FASTING 92 MG/DL (70-100); MAGNESIUM LEVEL 2.2 MG/DL (1.8-2.4); SODIUM LEVEL 136 MEQ/L (136-145); TOTAL PROTEIN 6.8 GM/DL (6.4-8.2)
[2017-05-30 05:48] LABS: POTASSIUM SERUM 5.4 MEQ/L (3.5-5.1)
[2017-05-30] MEDS: DOCUSATE SODIUM 100 MG CAP PO ×2 (08:07→20:13)
[2017-05-30] MEDS: SENNA 8.6 MG TAB (SENOKOT) PO ×2 (08:07→20:11)
[2017-05-30] MEDS: METOPROLOL TART 50 MG TAB PO ×3 (08:07→20:15)
[2017-05-30] MEDS: SOD POLYSTYRENE SULFONATE SUSP 15 GM/60 ML UD PO (10:15)
[2017-05-30 18:04] LABS: CPK CREATINE PHOSPHOKINASE 10 U/L (39-308)
[2017-05-31] MEDS: MORPHINE 4 MG/ML 1ML VIAL/SYRINGE (J2270) IV ×4 (04:05→21:03)
[2017-05-31] MEDS: SENNA 8.6 MG TAB (SENOKOT) PO ×4 (05:52→21:01)
[2017-05-31] MEDS: DOCUSATE SODIUM 100 MG CAP PO ×3 (05:53→21:01)
[2017-05-31] MEDS: METOPROLOL TART 50 MG TAB PO ×3 (05:54→21:02)
[2017-05-31] MEDS: SODIUM CHLORIDE 0.9% INJ 10 ML SYR IV ×2 (05:55→16:50)
[2017-05-31 06:17] LABS: BASO % 0.1 % (0.0-1.0); EOS # 0.1 10^3/uL (0.0-0.50); EOS % 1.3 % (0.0-3.0); HEMATOCRIT 24.9 % (42.0-52.0); IMMATURE GRANULOCYTE % 0.5 % (0-3.0); LYMPH # 0.7 10^3/uL (1.5-6.5); LYMPH % 8.4 % (24.0-44.0); MEAN CORPUSCULAR HEMOGLOBIN 28.2 pg (27.0-33.0); MEAN CORPUSCULAR HGB CONC 32.1 g/dl (32.0-36.5); MEAN CORPUSCULAR VOLUME 87.7 fl (80.0-96.0); MONO # 0.8 10^3/uL (0.0-0.8); MONO % 9.8 % (0.0-5.0); NEUTROPHILS # 6.3 10^3/uL (1.8-7.7); NEUTROPHILS % 79.9 % (36.0-66.0); PLATELET COUNT, AUTOMATED 183 10^3/uL (150-450); RED BLOOD COUNT 2.84 10^6/uL (4.30-6.10); RED CELL DISTRIBUTION WIDTH 15.4 % (11.5-14.5); WHITE BLOOD COUNT 7.9 10^3/uL (4.0-10.0)
[2017-05-31 06:51] LABS: ALBUMIN 1.1 GM/DL (3.2-5.2); ALBUMIN/GLOBULIN RATIO 0.21 (1.00-1.93); ALKALINE PHOSPHATASE 166 U/L (45-117); ALT/SGPT < 6 U/L (12-78); ANION GAP 10 MEQ/L (8-16); AST/SGOT 14 U/L (7-37); BILIRUBIN,TOTAL 0.3 MG/DL (0.2-1.0); BLOOD UREA NITROGEN 47 MG/DL (7-18); CARBON DIOXIDE LEVEL 25 MEQ/L (21-32); CHLORIDE LEVEL 101 MEQ/L (98-107); CREATININE FOR GFR 4.92 MG/DL (0.70-1.30); GLOMERULAR FILTRATION RATE 15.3 (>60); GLUCOSE, FASTING 110 MG/DL (70-100); MAGNESIUM LEVEL 2.2 MG/DL (1.8-2.4); POTASSIUM SERUM 4.8 MEQ/L (3.5-5.1); SODIUM LEVEL 136 MEQ/L (136-145); TOTAL PROTEIN 6.3 GM/DL (6.4-8.2)
[2017-05-31 12:22] LABS: IMMEDIATE SPIN CROSSMATCH 1 1
[2017-05-31] MEDS: HEPARIN 1,000 UNITS/ML 10ML VIAL (FOR RADIOLOGY& DIALYSIS ONLY) IV (16:22)
[2017-05-31] MEDS: DAPTOmycin 750 MG in NS 50 ML IV (16:50)
[2017-05-31] MEDS: ACETAMINOPHEN TAB 650MG DOSE (2X325MG) PO (16:57)
[2017-06-01] MEDS: MORPHINE 4 MG/ML 1ML VIAL/SYRINGE (J2270) IV ×6 (02:07→22:15)
[2017-06-01] MEDS: ACETAMINOPHEN TAB 650MG DOSE (2X325MG) PO ×2 (05:32→15:33)
[2017-06-01 05:54] LABS: BASO % 0.3 % (0.0-1.0); EOS # 0.1 10^3/uL (0.0-0.50); EOS % 1.7 % (0.0-3.0); HEMATOCRIT 27.5 % (42.0-52.0); HEMOGLOBIN 8.8 g/dl (13.5-17.5); IMMATURE GRANULOCYTE % 0.6 % (0-3.0); LYMPH # 0.9 10^3/uL (1.5-6.5); LYMPH % 14.4 % (24.0-44.0); MEAN CORPUSCULAR HEMOGLOBIN 28.1 pg (27.0-33.0); MEAN CORPUSCULAR VOLUME 87.9 fl (80.0-96.0); MONO # 0.8 10^3/uL (0.0-0.8); NEUTROPHILS # 4.6 10^3/uL (1.8-7.7); PLATELET COUNT, AUTOMATED 181 10^3/uL (150-450); RED BLOOD COUNT 3.13 10^6/uL (4.30-6.10); RED CELL DISTRIBUTION WIDTH 15.4 % (11.5-14.5); WHITE BLOOD COUNT 6.5 10^3/uL (4.0-10.0)
[2017-06-01] MEDS: SODIUM CHLORIDE 0.9% INJ 10 ML SYR IV ×2 (06:14→18:12)
[2017-06-01 06:28] LABS: ALBUMIN 1.1 GM/DL (3.2-5.2); ALBUMIN/GLOBULIN RATIO 0.21 (1.00-1.93); ALKALINE PHOSPHATASE 184 U/L (45-117); ALT/SGPT 7 U/L (12-78); ANION GAP 7 MEQ/L (8-16); AST/SGOT 17 U/L (7-37); BILIRUBIN,TOTAL 0.4 MG/DL (0.2-1.0); BLOOD UREA NITROGEN 27 MG/DL (7-18); CARBON DIOXIDE LEVEL 28 MEQ/L (21-32); CHLORIDE LEVEL 102 MEQ/L (98-107); CREATININE FOR GFR 3.62 MG/DL (0.70-1.30); GLOMERULAR FILTRATION RATE 21.8 (>60); GLUCOSE, FASTING 89 MG/DL (70-100); MAGNESIUM LEVEL 1.8 MG/DL (1.8-2.4); POTASSIUM SERUM 4.5 MEQ/L (3.5-5.1); SODIUM LEVEL 137 MEQ/L (136-145); TOTAL PROTEIN 6.4 GM/DL (6.4-8.2)
[2017-06-01] MEDS: SENNA 8.6 MG TAB (SENOKOT) PO ×3 (10:18→22:14)
[2017-06-01] MEDS: DOCUSATE SODIUM 100 MG CAP PO ×3 (10:18→22:14)
[2017-06-01] MEDS: METOPROLOL TART 50 MG TAB PO ×3 (10:18→21:00)
[2017-06-01] MEDS: IBUPROFEN 400 MG TAB PO (16:27)
[2017-06-02] MEDS: METOPROLOL TART 50 MG TAB PO ×3 (05:39→21:12)
[2017-06-02] MEDS: DOCUSATE SODIUM 100 MG CAP PO ×2 (05:39→21:00)
[2017-06-02] MEDS: MORPHINE 4 MG/ML 1ML VIAL/SYRINGE (J2270) IV ×4 (05:40→20:03)
[2017-06-02] MEDS: SENNA 8.6 MG TAB (SENOKOT) PO (05:40)
[2017-06-02] MEDS: SODIUM CHLORIDE 0.9% INJ 10 ML SYR IV ×2 (05:41→19:01)
[2017-06-02 06:31] LABS: BASO % 0.3 % (0.0-1.0); EOS # 0.1 10^3/uL (0.0-0.50); EOS % 2.1 % (0.0-3.0); HEMATOCRIT 28.5 % (42.0-52.0); HEMOGLOBIN 9.1 g/dl (13.5-17.5); IMMATURE GRANULOCYTE % 0.5 % (0-3.0); LYMPH # 0.7 10^3/uL (1.5-6.5); LYMPH % 10.7 % (24.0-44.0); MEAN CORPUSCULAR HEMOGLOBIN 28.3 pg (27.0-33.0); MEAN CORPUSCULAR HGB CONC 31.9 g/dl (32.0-36.5); MEAN CORPUSCULAR VOLUME 88.8 fl (80.0-96.0); MONO # 0.6 10^3/uL (0.0-0.8); MONO % 8.8 % (0.0-5.0); NEUTROPHILS # 4.9 10^3/uL (1.8-7.7); NEUTROPHILS % 77.6 % (36.0-66.0); PLATELET COUNT, AUTOMATED 182 10^3/uL (150-450); RED BLOOD COUNT 3.21 10^6/uL (4.30-6.10); RED CELL DISTRIBUTION WIDTH 15.4 % (11.5-14.5); WHITE BLOOD COUNT 6.3 10^3/uL (4.0-10.0)
[2017-06-02 06:34] LABS: ALBUMIN/GLOBULIN RATIO 0.19 (1.00-1.93); ALKALINE PHOSPHATASE 159 U/L (45-117); ALT/SGPT < 6 U/L (12-78); ANION GAP 6 MEQ/L (8-16); AST/SGOT 15 U/L (7-37); BILIRUBIN,TOTAL 0.4 MG/DL (0.2-1.0); BLOOD UREA NITROGEN 34 MG/DL (7-18); CALCIUM LEVEL 7.2 MG/DL (8.5-10.1); CARBON DIOXIDE LEVEL 28 MEQ/L (21-32); CHLORIDE LEVEL 103 MEQ/L (98-107); CREATININE FOR GFR 4.56 MG/DL (0.70-1.30); GLOMERULAR FILTRATION RATE 16.7 (>60); GLUCOSE, FASTING 84 MG/DL (70-100); POTASSIUM SERUM 4.5 MEQ/L (3.5-5.1); SODIUM LEVEL 137 MEQ/L (136-145); TOTAL PROTEIN 6.3 GM/DL (6.4-8.2)
[2017-06-02] MEDS: ONDANSETRON 4MG/2ML VIAL (J2405) IV ×2 (08:48→20:03)
[2017-06-02] MEDS: ACETAMINOPHEN TAB 650MG DOSE (2X325MG) PO (09:03)
[2017-06-02] MEDS: HEPARIN 1,000 UNITS/ML 10ML VIAL (FOR RADIOLOGY& DIALYSIS ONLY) IV (10:15)
[2017-06-02] MEDS: HEPARIN 1,000 UNITS/ML 10ML VIAL (FOR RADIOLOGY& DIALYSIS ONLY) XX (10:15)
[2017-06-02] MEDS: **VANCO AFTER HD** MISC XX (16:00)
[2017-06-02] MEDS: VANCOMYCIN HCL 1,000 MG, VIAL MATE ADAPTER 1 EACH in D5W 250 ML IV (19:01)
[2017-06-02] MEDS: VANCOMYCIN HCL 500 MG in D5W MINI-BAG PLUS 100 ML IV (20:01)
[2017-06-03] MEDS: MORPHINE 4 MG/ML 1ML VIAL/SYRINGE (J2270) IV ×6 (00:07→22:02)
[2017-06-03] MEDS: ACETAMINOPHEN TAB 650MG DOSE (2X325MG) PO (01:57)
[2017-06-03] MEDS: SODIUM CHLORIDE 0.9% INJ 10 ML SYR IV ×2 (04:34→17:45)
[2017-06-03 04:47] LABS: HEMATOCRIT 26.7 % (42.0-52.0); HEMOGLOBIN 8.4 g/dl (13.5-17.5); MEAN CORPUSCULAR HEMOGLOBIN 27.9 pg (27.0-33.0); MEAN CORPUSCULAR HGB CONC 31.5 g/dl (32.0-36.5); MEAN CORPUSCULAR VOLUME 88.7 fl (80.0-96.0); PLATELET COUNT, AUTOMATED 210 10^3/uL (150-450); RED BLOOD COUNT 3.01 10^6/uL (4.30-6.10); RED CELL DISTRIBUTION WIDTH 15.4 % (11.5-14.5); WHITE BLOOD COUNT 6.3 10^3/uL (4.0-10.0)
[2017-06-03 04:56] LABS: ANION GAP 5 MEQ/L (8-16); BLOOD UREA NITROGEN 19 MG/DL (7-18); CARBON DIOXIDE LEVEL 30 MEQ/L (21-32); CHLORIDE LEVEL 103 MEQ/L (98-107); CREATININE FOR GFR 3.61 MG/DL (0.70-1.30); GLOMERULAR FILTRATION RATE 21.9 (>60); GLUCOSE, FASTING 87 MG/DL (70-100); POTASSIUM SERUM 4.1 MEQ/L (3.5-5.1); SODIUM LEVEL 138 MEQ/L (136-145)
[2017-06-03] MEDS: METOPROLOL TART 50 MG TAB PO ×3 (09:00→22:01)
[2017-06-03] MEDS: DOCUSATE SODIUM 100 MG CAP PO ×2 (09:35→22:01)
[2017-06-03] MEDS: **VANCO AFTER HD** MISC XX (16:00)
[2017-06-04] MEDS: MORPHINE 4 MG/ML 1ML VIAL/SYRINGE (J2270) IV ×4 (03:57→20:25)
[2017-06-04] MEDS: SODIUM CHLORIDE 0.9% INJ 10 ML SYR IV ×2 (05:23→16:22)
[2017-06-04] MEDS: DOCUSATE SODIUM 100 MG CAP PO ×2 (05:23→20:25)
[2017-06-04] MEDS: METOPROLOL TART 50 MG TAB PO ×3 (05:24→20:25)
[2017-06-04 05:41] LABS: HEMATOCRIT 25.4 % (42.0-52.0); HEMOGLOBIN 7.8 g/dl (13.5-17.5); MEAN CORPUSCULAR HEMOGLOBIN 28.1 pg (27.0-33.0); MEAN CORPUSCULAR HGB CONC 30.7 g/dl (32.0-36.5); MEAN CORPUSCULAR VOLUME 91.4 fl (80.0-96.0); PLATELET COUNT, AUTOMATED 168 10^3/uL (150-450); RED BLOOD COUNT 2.78 10^6/uL (4.30-6.10); RED CELL DISTRIBUTION WIDTH 15.5 % (11.5-14.5); WHITE BLOOD COUNT 4.2 10^3/uL (4.0-10.0)
[2017-06-04 06:05] LABS: ANION GAP 7 MEQ/L (8-16); BLOOD UREA NITROGEN 28 MG/DL (7-18); CALCIUM LEVEL 7.1 MG/DL (8.5-10.1); CARBON DIOXIDE LEVEL 29 MEQ/L (21-32); CHLORIDE LEVEL 102 MEQ/L (98-107); CREATININE FOR GFR 4.85 MG/DL (0.70-1.30); GLOMERULAR FILTRATION RATE 15.5 (>60); GLUCOSE, FASTING 97 MG/DL (70-100); POTASSIUM SERUM 4.5 MEQ/L (3.5-5.1); SODIUM LEVEL 138 MEQ/L (136-145)
[2017-06-04] MEDS: ACETAMINOPHEN TAB 650MG DOSE (2X325MG) PO ×2 (06:07→17:38)
[2017-06-04 07:57] LABS: VANCOMYCIN RANDOM 17.1 UG/ML
[2017-06-04] MEDS: CEFEPIME HCL 1 GM in D5W MINI-BAG PLUS 50 ML IV (10:02)
[2017-06-04] MEDS: HEPARIN 1,000 UNITS/ML 10ML VIAL (FOR RADIOLOGY& DIALYSIS ONLY) IV (10:30)
[2017-06-04 12:12] LABS: IMMEDIATE SPIN CROSSMATCH 1 1
[2017-06-04] MEDS: **VANCO AFTER HD** MISC XX (16:00)
[2017-06-04] MEDS: VANCOMYCIN HCL 1,000 MG, VIAL MATE ADAPTER 1 EACH in D5W 250 ML IV (16:22)
[2017-06-04] MEDS: ONDANSETRON 4MG/2ML VIAL (J2405) IV (17:38)
[2017-06-05] MEDS: MORPHINE 4 MG/ML 1ML VIAL/SYRINGE (J2270) IV ×5 (04:08→21:15)
[2017-06-05 05:56] LABS: HEMATOCRIT 27.4 % (42.0-52.0); HEMOGLOBIN 8.5 g/dl (13.5-17.5); MEAN CORPUSCULAR HEMOGLOBIN 28.1 pg (27.0-33.0); MEAN CORPUSCULAR VOLUME 90.4 fl (80.0-96.0); PLATELET COUNT, AUTOMATED 167 10^3/uL (150-450); RED BLOOD COUNT 3.03 10^6/uL (4.30-6.10); RED CELL DISTRIBUTION WIDTH 15.9 % (11.5-14.5); WHITE BLOOD COUNT 4.3 10^3/uL (4.0-10.0)
[2017-06-05] MEDS: SODIUM CHLORIDE 0.9% INJ 10 ML SYR IV ×2 (06:00→12:25)
[2017-06-05 06:25] LABS: ANION GAP 6 MEQ/L (8-16); BLOOD UREA NITROGEN 18 MG/DL (7-18); CARBON DIOXIDE LEVEL 30 MEQ/L (21-32); CHLORIDE LEVEL 102 MEQ/L (98-107); CREATININE FOR GFR 3.49 MG/DL (0.70-1.30); GLOMERULAR FILTRATION RATE 22.7 (>60); GLUCOSE, FASTING 109 MG/DL (70-100); POTASSIUM SERUM 3.9 MEQ/L (3.5-5.1); SODIUM LEVEL 138 MEQ/L (136-145)
[2017-06-05] MEDS: ONDANSETRON 4MG/2ML VIAL (J2405) IV (08:19)
[2017-06-05] MEDS: DOCUSATE SODIUM 100 MG CAP PO ×2 (08:20→21:14)
[2017-06-05] MEDS: CEFEPIME HCL 1 GM in D5W MINI-BAG PLUS 50 ML IV (08:21)
[2017-06-05] MEDS: METOPROLOL TART 50 MG TAB PO ×3 (08:21→21:17)
[2017-06-05] MEDS: MIRALAX *UNIT DOSE* 17GM PACKET PO (10:42)
[2017-06-05] MEDS: CEPACOL LOZENGE PO (10:42)
[2017-06-05] MEDS: ACETAMINOPHEN TAB 650MG DOSE (2X325MG) PO (15:21)
[2017-06-05] MEDS: **VANCO AFTER HD** MISC XX (15:22)
[2017-06-06] MEDS: MORPHINE 4 MG/ML 1ML VIAL/SYRINGE (J2270) IV ×6 (02:19→21:15)
[2017-06-06] MEDS: SODIUM CHLORIDE 0.9% INJ 10 ML SYR IV ×2 (05:15→16:18)
[2017-06-06 05:33] LABS: HEMATOCRIT 29.8 % (42.0-52.0); HEMOGLOBIN 9.3 g/dl (13.5-17.5); MEAN CORPUSCULAR HEMOGLOBIN 28.1 pg (27.0-33.0); MEAN CORPUSCULAR HGB CONC 31.2 g/dl (32.0-36.5); PLATELET COUNT, AUTOMATED 192 10^3/uL (150-450); RED BLOOD COUNT 3.31 10^6/uL (4.30-6.10); RED CELL DISTRIBUTION WIDTH 15.7 % (11.5-14.5); WHITE BLOOD COUNT 5.1 10^3/uL (4.0-10.0)
[2017-06-06 05:53] LABS: ANION GAP 7 MEQ/L (8-16); BLOOD UREA NITROGEN 28 MG/DL (7-18); CALCIUM LEVEL 7.3 MG/DL (8.5-10.1); CARBON DIOXIDE LEVEL 28 MEQ/L (21-32); CHLORIDE LEVEL 102 MEQ/L (98-107); CREATININE FOR GFR 4.28 MG/DL (0.70-1.30); GLUCOSE, FASTING 87 MG/DL (70-100); POTASSIUM SERUM 4.8 MEQ/L (3.5-5.1); SODIUM LEVEL 137 MEQ/L (136-145)
[2017-06-06] MEDS: DOCUSATE SODIUM 100 MG CAP PO ×2 (08:30→21:13)
[2017-06-06] MEDS: METOPROLOL TART 50 MG TAB PO ×3 (08:32→21:14)
[2017-06-06] MEDS: CEFEPIME HCL 1 GM in D5W MINI-BAG PLUS 50 ML IV (08:32)
[2017-06-06] MEDS: SENOKOT S TAB PO ×2 (09:22→21:13)
[2017-06-06] MEDS: **VANCO AFTER HD** MISC XX (16:00)
[2017-06-07] MEDS: MORPHINE 4 MG/ML 1ML VIAL/SYRINGE (J2270) IV ×5 (01:50→21:52)
[2017-06-07] MEDS: METOPROLOL TART 50 MG TAB PO ×3 (06:04→21:52)
[2017-06-07] MEDS: DOCUSATE SODIUM 100 MG CAP PO ×2 (06:04→21:52)
[2017-06-07] MEDS: CEFEPIME HCL 1 GM in D5W MINI-BAG PLUS 50 ML IV (06:05)
[2017-06-07] MEDS: SENOKOT S TAB PO ×2 (06:05→21:52)
[2017-06-07] MEDS: SODIUM CHLORIDE 0.9% INJ 10 ML SYR IV ×2 (06:05→18:00)
[2017-06-07 06:18] LABS: HEMATOCRIT 28.6 % (42.0-52.0); HEMOGLOBIN 8.9 g/dl (13.5-17.5); MEAN CORPUSCULAR HEMOGLOBIN 27.6 pg (27.0-33.0); MEAN CORPUSCULAR HGB CONC 31.1 g/dl (32.0-36.5); MEAN CORPUSCULAR VOLUME 88.8 fl (80.0-96.0); PLATELET COUNT, AUTOMATED 176 10^3/uL (150-450); RED BLOOD COUNT 3.22 10^6/uL (4.30-6.10); RED CELL DISTRIBUTION WIDTH 15.3 % (11.5-14.5); WHITE BLOOD COUNT 4.8 10^3/uL (4.0-10.0)
[2017-06-07 06:36] LABS: ANION GAP 5 MEQ/L (8-16); BLOOD UREA NITROGEN 37 MG/DL (7-18); CALCIUM LEVEL 7.2 MG/DL (8.5-10.1); CARBON DIOXIDE LEVEL 28 MEQ/L (21-32); CHLORIDE LEVEL 102 MEQ/L (98-107); CREATININE FOR GFR 4.77 MG/DL (0.70-1.30); GLOMERULAR FILTRATION RATE 15.8 (>60); GLUCOSE, FASTING 78 MG/DL (70-100); POTASSIUM SERUM 4.5 MEQ/L (3.5-5.1); SODIUM LEVEL 135 MEQ/L (136-145); VANCOMYCIN RANDOM 14.8 UG/ML
[2017-06-07] MEDS: **VANCO AFTER HD** MISC XX (16:00)
[2017-06-07] MEDS: VANCOMYCIN HCL 1,000 MG, VIAL MATE ADAPTER 1 EACH in D5W 250 ML IV (17:48)
[2017-06-07] MEDS: ONDANSETRON 4MG/2ML VIAL (J2405) IV (21:52)
[2017-06-08] MEDS: MORPHINE 4 MG/ML 1ML VIAL/SYRINGE (J2270) IV ×5 (04:16→21:00)
[2017-06-08] MEDS: SODIUM CHLORIDE 0.9% INJ 10 ML SYR IV ×2 (06:06→16:57)
[2017-06-08 06:30] LABS: HEMATOCRIT 29.7 % (42.0-52.0); HEMOGLOBIN 9.4 g/dl (13.5-17.5); MEAN CORPUSCULAR HEMOGLOBIN 28.1 pg (27.0-33.0); MEAN CORPUSCULAR HGB CONC 31.6 g/dl (32.0-36.5); MEAN CORPUSCULAR VOLUME 88.7 fl (80.0-96.0); PLATELET COUNT, AUTOMATED 166 10^3/uL (150-450); RED BLOOD COUNT 3.35 10^6/uL (4.30-6.10); RED CELL DISTRIBUTION WIDTH 15.5 % (11.5-14.5)
[2017-06-08 06:47] LABS: ANION GAP 5 MEQ/L (8-16); BLOOD UREA NITROGEN 22 MG/DL (7-18); CALCIUM LEVEL 7.2 MG/DL (8.5-10.1); CARBON DIOXIDE LEVEL 29 MEQ/L (21-32); CHLORIDE LEVEL 102 MEQ/L (98-107); CREATININE FOR GFR 3.41 MG/DL (0.70-1.30); GLOMERULAR FILTRATION RATE 23.3 (>60); GLUCOSE, FASTING 96 MG/DL (70-100); SODIUM LEVEL 136 MEQ/L (136-145)
[2017-06-08] MEDS: CEFEPIME HCL 1 GM in D5W MINI-BAG PLUS 50 ML IV (08:26)
[2017-06-08] MEDS: DOCUSATE SODIUM 100 MG CAP PO ×2 (08:26→21:00)
[2017-06-08] MEDS: METOPROLOL TART 50 MG TAB PO ×3 (08:28→21:01)
[2017-06-08] MEDS: SENOKOT S TAB PO ×2 (08:28→21:00)
[2017-06-08] MEDS: **VANCO AFTER HD** MISC XX (16:13)
[2017-06-08] MEDS: ONDANSETRON 4MG/2ML VIAL (J2405) IV (21:00)
[2017-06-09] MEDS: SODIUM CHLORIDE 0.9% INJ 10 ML SYR IV ×2 (05:30→16:29)
[2017-06-09] MEDS: DOCUSATE SODIUM 100 MG CAP PO ×2 (05:31→21:22)
[2017-06-09] MEDS: METOPROLOL TART 50 MG TAB PO ×3 (05:31→21:22)
[2017-06-09] MEDS: SENOKOT S TAB PO ×2 (05:31→21:00)
[2017-06-09] MEDS: MORPHINE 4 MG/ML 1ML VIAL/SYRINGE (J2270) IV ×4 (05:32→21:21)
[2017-06-09] MEDS: CEFEPIME HCL 1 GM in D5W MINI-BAG PLUS 50 ML IV (09:54)
[2017-06-09] MEDS: HEPARIN 1,000 UNITS/ML 10ML VIAL (FOR RADIOLOGY& DIALYSIS ONLY) XX (11:15)
[2017-06-09] MEDS: HEPARIN 1,000 UNITS/ML 10ML VIAL (FOR RADIOLOGY& DIALYSIS ONLY) IV (11:15)
[2017-06-09 14:29] LABS: HEMOGLOBIN 9.5 g/dl (13.5-17.5); MEAN CORPUSCULAR HEMOGLOBIN 28.2 pg (27.0-33.0); MEAN CORPUSCULAR HGB CONC 31.7 g/dl (32.0-36.5); PLATELET COUNT, AUTOMATED 217 10^3/uL (150-450); RED BLOOD COUNT 3.37 10^6/uL (4.30-6.10); RED CELL DISTRIBUTION WIDTH 15.5 % (11.5-14.5); WHITE BLOOD COUNT 5.4 10^3/uL (4.0-10.0)
[2017-06-09 15:08] LABS: ANION GAP 9 MEQ/L (8-16); BLOOD UREA NITROGEN 35 MG/DL (7-18); CALCIUM LEVEL 7.3 MG/DL (8.5-10.1); CARBON DIOXIDE LEVEL 27 MEQ/L (21-32); CHLORIDE LEVEL 100 MEQ/L (98-107); CREATININE FOR GFR 4.24 MG/DL (0.70-1.30); GLOMERULAR FILTRATION RATE 18.2 (>60); GLUCOSE, FASTING 103 MG/DL (70-100); POTASSIUM SERUM 4.2 MEQ/L (3.5-5.1); SODIUM LEVEL 136 MEQ/L (136-145)
[2017-06-09] MEDS: **VANCO AFTER HD** MISC XX (16:00)
[2017-06-09] MEDS: ACETAMINOPHEN TAB 650MG DOSE (2X325MG) PO (17:10)
[2017-06-09] MEDS: ONDANSETRON 4MG/2ML VIAL (J2405) IV (19:20)
[2017-06-09 19:23] LABS: VANCOMYCIN RANDOM 13.8 UG/ML
[2017-06-09] MEDS: ALTEPLASE 2 MG/2 ML VIAL (J2997 PER 1MG) XX (20:00)
[2017-06-10] MEDS: MORPHINE 4 MG/ML 1ML VIAL/SYRINGE (J2270) IV ×5 (02:19→20:18)
[2017-06-10] MEDS: SODIUM CHLORIDE 0.9% INJ 10 ML SYR IV ×3 (06:00→20:17)
[2017-06-10] MEDS: ONDANSETRON 4MG/2ML VIAL (J2405) IV ×3 (06:48→20:17)
[2017-06-10] MEDS: CEFEPIME HCL 1 GM in D5W MINI-BAG PLUS 50 ML IV (09:38)
[2017-06-10] MEDS: METOPROLOL TART 50 MG TAB PO ×3 (09:38→20:17)
[2017-06-10] MEDS: DOCUSATE SODIUM 100 MG CAP PO ×2 (09:38→20:16)
[2017-06-10] MEDS: PANTOPRAZOLE 40MG TAB (PROTONIX) PO (09:38)
[2017-06-10] MEDS: SENOKOT S TAB PO ×2 (09:38→20:16)
[2017-06-10] MEDS: **VANCO AFTER HD** MISC XX (16:00)
[2017-06-10 18:33] LABS: HEMATOCRIT 28.4 % (42.0-52.0); HEMOGLOBIN 8.8 g/dl (13.5-17.5); MEAN CORPUSCULAR HEMOGLOBIN 27.5 pg (27.0-33.0); MEAN CORPUSCULAR VOLUME 88.8 fl (80.0-96.0); PLATELET COUNT, AUTOMATED 197 10^3/uL (150-450); RED CELL DISTRIBUTION WIDTH 15.2 % (11.5-14.5); WHITE BLOOD COUNT 6.5 10^3/uL (4.0-10.0)
[2017-06-10 18:59] LABS: ANION GAP 6 MEQ/L (8-16); BLOOD UREA NITROGEN 23 MG/DL (7-18); CARBON DIOXIDE LEVEL 28 MEQ/L (21-32); CHLORIDE LEVEL 103 MEQ/L (98-107); CREATININE FOR GFR 3.32 MG/DL (0.70-1.30); GLOMERULAR FILTRATION RATE 24.1 (>60); GLUCOSE, FASTING 102 MG/DL (70-100); MAGNESIUM LEVEL 1.9 MG/DL (1.8-2.4); POTASSIUM SERUM 4.1 MEQ/L (3.5-5.1); SODIUM LEVEL 137 MEQ/L (136-145)
[2017-06-10] MEDS: NYSTATIN 100,000 UNITS/GM TOPICAL PWD 15 GM TOP (20:18)
[2017-06-10] MEDS ORDERED: KETOCONAZOLE 2% CREAM TOP (21:00)
[2017-06-11] MEDS: ONDANSETRON 4MG/2ML VIAL (J2405) IV ×3 (03:03→17:57)
[2017-06-11] MEDS: MORPHINE 4 MG/ML 1ML VIAL/SYRINGE (J2270) IV ×4 (03:03→22:04)
[2017-06-11] MEDS: METOPROLOL TART 50 MG TAB PO ×3 (05:36→22:02)
[2017-06-11] MEDS: PANTOPRAZOLE 40MG TAB (PROTONIX) PO (05:36)
[2017-06-11] MEDS: DOCUSATE SODIUM 100 MG CAP PO ×2 (05:36→22:02)
[2017-06-11] MEDS: SODIUM CHLORIDE 0.9% INJ 10 ML SYR IV ×2 (05:36→17:58)
[2017-06-11] MEDS: SENOKOT S TAB PO ×2 (05:36→22:04)
[2017-06-11 05:56] LABS: HEMATOCRIT 29.4 % (42.0-52.0); HEMOGLOBIN 9.2 g/dl (13.5-17.5); MEAN CORPUSCULAR HEMOGLOBIN 27.4 pg (27.0-33.0); MEAN CORPUSCULAR HGB CONC 31.3 g/dl (32.0-36.5); MEAN CORPUSCULAR VOLUME 87.5 fl (80.0-96.0); PLATELET COUNT, AUTOMATED 181 10^3/uL (150-450); RED BLOOD COUNT 3.36 10^6/uL (4.30-6.10); RED CELL DISTRIBUTION WIDTH 15.3 % (11.5-14.5); WHITE BLOOD COUNT 12.2 10^3/uL (4.0-10.0)
[2017-06-11 06:18] LABS: ANION GAP 7 MEQ/L (8-16); BLOOD UREA NITROGEN 25 MG/DL (7-18); CALCIUM LEVEL 7.1 MG/DL (8.5-10.1); CARBON DIOXIDE LEVEL 27 MEQ/L (21-32); CHLORIDE LEVEL 103 MEQ/L (98-107); CREATININE FOR GFR 3.59 MG/DL (0.70-1.30); GLUCOSE, FASTING 90 MG/DL (70-100); POTASSIUM SERUM 4.4 MEQ/L (3.5-5.1); SODIUM LEVEL 137 MEQ/L (136-145)
[2017-06-11] MEDS: NYSTATIN 100,000 UNITS/GM TOPICAL PWD 15 GM TOP ×2 (08:51→21:50)
[2017-06-11 10:28] LABS: VANCOMYCIN RANDOM 17.3 UG/ML
[2017-06-11] MEDS: HEPARIN 1,000 UNITS/ML 10ML VIAL (FOR RADIOLOGY& DIALYSIS ONLY) IV (11:19)
[2017-06-11] MEDS: VANCOMYCIN HCL 1,000 MG, VIAL MATE ADAPTER 1 EACH in D5W 250 ML IV (17:59)
[2017-06-11] MEDS: **VANCO AFTER HD** MISC XX (17:59)
[2017-06-12] MEDS: SODIUM CHLORIDE 0.9% INJ 10 ML SYR IV ×5 (03:21→20:07)
[2017-06-12] MEDS: MORPHINE 4 MG/ML 1ML VIAL/SYRINGE (J2270) IV ×5 (03:21→20:06)
[2017-06-12 06:01] LABS: HEMATOCRIT 28.1 % (42.0-52.0); HEMOGLOBIN 8.8 g/dl (13.5-17.5); MEAN CORPUSCULAR HEMOGLOBIN 27.6 pg (27.0-33.0); MEAN CORPUSCULAR HGB CONC 31.3 g/dl (32.0-36.5); MEAN CORPUSCULAR VOLUME 88.1 fl (80.0-96.0); PLATELET COUNT, AUTOMATED 144 10^3/uL (150-450); RED BLOOD COUNT 3.19 10^6/uL (4.30-6.10); RED CELL DISTRIBUTION WIDTH 15.3 % (11.5-14.5); WHITE BLOOD COUNT 11.1 10^3/uL (4.0-10.0)
[2017-06-12 06:30] LABS: ANION GAP 5 MEQ/L (8-16); BLOOD UREA NITROGEN 19 MG/DL (7-18); CALCIUM LEVEL 7.3 MG/DL (8.5-10.1); CARBON DIOXIDE LEVEL 28 MEQ/L (21-32); CHLORIDE LEVEL 102 MEQ/L (98-107); CREATININE FOR GFR 3.25 MG/DL (0.70-1.30); GLOMERULAR FILTRATION RATE 24.7 (>60); GLUCOSE, FASTING 88 MG/DL (70-100); POTASSIUM SERUM 4.3 MEQ/L (3.5-5.1); SODIUM LEVEL 135 MEQ/L (136-145)
[2017-06-12] MEDS: METOPROLOL TART 50 MG TAB PO ×4 (07:21→21:00)
[2017-06-12] MEDS: PANTOPRAZOLE 40MG TAB (PROTONIX) PO (07:28)
[2017-06-12] MEDS: DOCUSATE SODIUM 100 MG CAP PO ×2 (07:28→20:08)
[2017-06-12] MEDS: SENOKOT S TAB PO ×2 (07:28→20:08)
[2017-06-12] MEDS: ONDANSETRON 4MG/2ML VIAL (J2405) IV ×2 (07:28→16:56)
[2017-06-12] MEDS: NYSTATIN 100,000 UNITS/GM TOPICAL PWD 15 GM TOP ×2 (07:30→20:08)
[2017-06-12] MEDS: **VANCO AFTER HD** MISC XX (16:04)
[2017-06-12 16:48] LABS: MYOGLOBIN SCREEN, URINE POSITIVE (NEGATIVE)
[2017-06-12 16:48] LABS: AMORPHOUS SEDIMENT SMALL (NEGATIVE); APPEARANCE, URINE TURBID (CLEAR); BACTERIA, URINE AUTO NEGATIVE (NEGATIVE); BILIRUBIN, URINE AUTO NEGATIVE (NEGATIVE); BLOOD, URINE BLOOD 3+ (NEGATIVE); COLOR, URINE RED (YELLOW); GLUCOSE, URINE (UA) AUTO NEGATIVE (NEGATIVE); KETONE, URINE AUTO TRACE mg/dL (NEGATIVE); LEUKOCYTE ESTERASE, URINE AUTO TRACE (NEGATIVE); MUCUS, URINE SMALL (NEGATIVE); NITRITE, URINE AUTO NEGATIVE (NEGATIVE); PROTEIN, URINE AUTO 3+ mg/dL (NEGATIVE); RBC, URINE AUTO TNTC /HPF (0-3); SPECIFIC GRAVITY URINE AUTO 1.027 (1.002-1.035); SQUAMOUS EPITHELIAL CELL UR AU 0 /HPF (0-6); UROBILINOGEN, URINE AUTO 0.2 mg/dL (0.0-2.0); WBC, URINE AUTO TNTC /HPF (0-3)
[2017-06-13] MEDS: SODIUM CHLORIDE 0.9% INJ 10 ML SYR IV ×3 (05:25→17:41)
[2017-06-13] MEDS: MORPHINE 4 MG/ML 1ML VIAL/SYRINGE (J2270) IV ×4 (05:25→20:15)
[2017-06-13 05:45] LABS: HEMATOCRIT 25.8 % (42.0-52.0); HEMOGLOBIN 8.1 g/dl (13.5-17.5); MEAN CORPUSCULAR HEMOGLOBIN 27.5 pg (27.0-33.0); MEAN CORPUSCULAR HGB CONC 31.4 g/dl (32.0-36.5); MEAN CORPUSCULAR VOLUME 87.5 fl (80.0-96.0); PLATELET COUNT, AUTOMATED 151 10^3/uL (150-450); RED BLOOD COUNT 2.95 10^6/uL (4.30-6.10); RED CELL DISTRIBUTION WIDTH 15.6 % (11.5-14.5); WHITE BLOOD COUNT 7.6 10^3/uL (4.0-10.0)
[2017-06-13 06:12] LABS: ANION GAP 6 MEQ/L (8-16); BLOOD UREA NITROGEN 25 MG/DL (7-18); CALCIUM LEVEL 7.1 MG/DL (8.5-10.1); CARBON DIOXIDE LEVEL 28 MEQ/L (21-32); CHLORIDE LEVEL 103 MEQ/L (98-107); CREATININE FOR GFR 3.95 MG/DL (0.70-1.30); GLOMERULAR FILTRATION RATE 19.7 (>60); GLUCOSE, FASTING 83 MG/DL (70-100); POTASSIUM SERUM 4.6 MEQ/L (3.5-5.1); SODIUM LEVEL 137 MEQ/L (136-145)
[2017-06-13] MEDS: SENOKOT S TAB PO ×2 (08:22→20:13)
[2017-06-13] MEDS: DOCUSATE SODIUM 100 MG CAP PO ×2 (08:25→20:12)
[2017-06-13] MEDS: PANTOPRAZOLE 40MG TAB (PROTONIX) PO (08:26)
[2017-06-13] MEDS: METOPROLOL TART 50 MG TAB PO ×3 (08:26→20:12)
[2017-06-13] MEDS: NYSTATIN 100,000 UNITS/GM TOPICAL PWD 15 GM TOP ×2 (08:27→20:13)
[2017-06-13] MEDS: ONDANSETRON 4MG/2ML VIAL (J2405) IV ×2 (09:00→17:40)
[2017-06-13] MEDS: PERCOCET 5MG/325MG TAB PO ×3 (11:33→23:51)
[2017-06-13] MEDS: **VANCO AFTER HD** MISC XX (16:00)
[2017-06-14] MEDS: MORPHINE 4 MG/ML 1ML VIAL/SYRINGE (J2270) IV ×4 (02:55→21:21)
[2017-06-14] MEDS: NYSTATIN 100,000 UNITS/GM TOPICAL PWD 15 GM TOP ×2 (05:24→20:40)
[2017-06-14] MEDS: PANTOPRAZOLE 40MG TAB (PROTONIX) PO (05:24)
[2017-06-14] MEDS: SODIUM CHLORIDE 0.9% INJ 10 ML SYR IV ×2 (05:24→16:55)
[2017-06-14] MEDS: DOCUSATE SODIUM 100 MG CAP PO ×2 (05:24→20:39)
[2017-06-14] MEDS: METOPROLOL TART 50 MG TAB PO ×3 (05:26→20:39)
[2017-06-14 05:47] LABS: HEMATOCRIT 25.2 % (42.0-52.0); HEMOGLOBIN 7.9 g/dl (13.5-17.5); MEAN CORPUSCULAR HEMOGLOBIN 27.3 pg (27.0-33.0); MEAN CORPUSCULAR HGB CONC 31.3 g/dl (32.0-36.5); MEAN CORPUSCULAR VOLUME 87.2 fl (80.0-96.0); PLATELET COUNT, AUTOMATED 175 10^3/uL (150-450); RED BLOOD COUNT 2.89 10^6/uL (4.30-6.10); RED CELL DISTRIBUTION WIDTH 15.3 % (11.5-14.5); WHITE BLOOD COUNT 8.6 10^3/uL (4.0-10.0)
[2017-06-14 06:01] LABS: ANION GAP 7 MEQ/L (8-16); BLOOD UREA NITROGEN 32 MG/DL (7-18); CALCIUM LEVEL 7.3 MG/DL (8.5-10.1); CARBON DIOXIDE LEVEL 28 MEQ/L (21-32); CHLORIDE LEVEL 103 MEQ/L (98-107); CREATININE FOR GFR 4.31 MG/DL (0.70-1.30); GLOMERULAR FILTRATION RATE 17.8 (>60); GLUCOSE, FASTING 83 MG/DL (70-100); POTASSIUM SERUM 4.7 MEQ/L (3.5-5.1); SODIUM LEVEL 138 MEQ/L (136-145)
[2017-06-14 06:01] LABS: ERYTHROCYTE SEDIMENTATION RATE 109 mm/hr (0-15)
[2017-06-14 06:06] LABS: C REACTIVE PROTEIN QUANTITATIV 9.15 MG/DL (0.00-0.30)
[2017-06-14] MEDS: ONDANSETRON 4MG/2ML VIAL (J2405) IV ×2 (06:18→16:55)
[2017-06-14] MEDS: PERCOCET 5MG/325MG TAB PO ×3 (06:18→20:39)
[2017-06-14 08:27] LABS: VANCOMYCIN RANDOM 15.6 UG/ML
[2017-06-14] MEDS: HEPARIN 1,000 UNITS/ML 10ML VIAL (FOR RADIOLOGY& DIALYSIS ONLY) XX (11:45)
[2017-06-14] MEDS: HEPARIN 1,000 UNITS/ML 10ML VIAL (FOR RADIOLOGY& DIALYSIS ONLY) IV (11:45)
[2017-06-14] MEDS: **VANCO AFTER HD** MISC XX (15:50)
[2017-06-14] MEDS: VANCOMYCIN HCL 1,000 MG, VIAL MATE ADAPTER 1 EACH in D5W 250 ML IV (15:50)
[2017-06-15] MEDS: MORPHINE 4 MG/ML 1ML VIAL/SYRINGE (J2270) IV ×3 (02:02→20:37)
[2017-06-15] MEDS: PERCOCET 5MG/325MG TAB PO ×3 (02:43→17:43)
[2017-06-15] MEDS: SODIUM CHLORIDE 0.9% INJ 10 ML SYR IV ×3 (05:32→20:37)
[2017-06-15 05:49] LABS: HEMATOCRIT 26.5 % (42.0-52.0); HEMOGLOBIN 8.1 g/dl (13.5-17.5); MEAN CORPUSCULAR HEMOGLOBIN 27.2 pg (27.0-33.0); MEAN CORPUSCULAR HGB CONC 30.6 g/dl (32.0-36.5); MEAN CORPUSCULAR VOLUME 88.9 fl (80.0-96.0); PLATELET COUNT, AUTOMATED 189 10^3/uL (150-450); RED BLOOD COUNT 2.98 10^6/uL (4.30-6.10); RED CELL DISTRIBUTION WIDTH 15.6 % (11.5-14.5); WHITE BLOOD COUNT 6.8 10^3/uL (4.0-10.0)
[2017-06-15 06:08] LABS: ANION GAP 7 MEQ/L (8-16); BLOOD UREA NITROGEN 20 MG/DL (7-18); CALCIUM LEVEL 7.1 MG/DL (8.5-10.1); CARBON DIOXIDE LEVEL 28 MEQ/L (21-32); CHLORIDE LEVEL 104 MEQ/L (98-107); CREATININE FOR GFR 3.24 MG/DL (0.70-1.30); GLOMERULAR FILTRATION RATE 24.8 (>60); GLUCOSE, FASTING 100 MG/DL (70-100); POTASSIUM SERUM 4.1 MEQ/L (3.5-5.1); SODIUM LEVEL 139 MEQ/L (136-145)
[2017-06-15] MEDS: PANTOPRAZOLE 40MG TAB (PROTONIX) PO (09:13)
[2017-06-15] MEDS: DOCUSATE SODIUM 100 MG CAP PO ×2 (09:13→20:35)
[2017-06-15] MEDS: METOPROLOL TART 50 MG TAB PO ×3 (09:15→20:35)
[2017-06-15] MEDS: NYSTATIN 100,000 UNITS/GM TOPICAL PWD 15 GM TOP ×2 (10:12→20:36)
[2017-06-15] MEDS: SENNA 8.6 MG TAB (SENOKOT) PO ×2 (11:37→20:34)
[2017-06-15] MEDS: ONDANSETRON 4MG/2ML VIAL (J2405) IV ×2 (11:37→20:36)
[2017-06-15] MEDS: **VANCO AFTER HD** MISC XX (16:00)
[2017-06-16] MEDS: SODIUM CHLORIDE 0.9% INJ 10 ML SYR IV ×3 (06:02→20:45)
[2017-06-16] MEDS: DOCUSATE SODIUM 100 MG CAP PO ×2 (06:03→20:44)
[2017-06-16] MEDS: NYSTATIN 100,000 UNITS/GM TOPICAL PWD 15 GM TOP ×2 (06:04→20:44)
[2017-06-16] MEDS: PANTOPRAZOLE 40MG TAB (PROTONIX) PO (06:04)
[2017-06-16] MEDS: SENNA 8.6 MG TAB (SENOKOT) PO ×2 (06:04→20:43)
[2017-06-16] MEDS: METOPROLOL TART 50 MG TAB PO ×3 (06:04→20:44)
[2017-06-16] MEDS: PERCOCET 5MG/325MG TAB PO ×3 (06:05→20:45)
[2017-06-16 06:25] LABS: HEMATOCRIT 26.8 % (42.0-52.0); HEMOGLOBIN 8.4 g/dl (13.5-17.5); MEAN CORPUSCULAR HEMOGLOBIN 27.5 pg (27.0-33.0); MEAN CORPUSCULAR HGB CONC 31.3 g/dl (32.0-36.5); MEAN CORPUSCULAR VOLUME 87.6 fl (80.0-96.0); PLATELET COUNT, AUTOMATED 226 10^3/uL (150-450); RED BLOOD COUNT 3.06 10^6/uL (4.30-6.10); RED CELL DISTRIBUTION WIDTH 15.5 % (11.5-14.5); WHITE BLOOD COUNT 7.5 10^3/uL (4.0-10.0)
[2017-06-16 06:44] LABS: ANION GAP 5 MEQ/L (8-16); BLOOD UREA NITROGEN 25 MG/DL (7-18); CALCIUM LEVEL 7.6 MG/DL (8.5-10.1); CARBON DIOXIDE LEVEL 29 MEQ/L (21-32); CHLORIDE LEVEL 103 MEQ/L (98-107); CREATININE FOR GFR 3.52 MG/DL (0.70-1.30); GLOMERULAR FILTRATION RATE 22.5 (>60); GLUCOSE, FASTING 77 MG/DL (70-100); POTASSIUM SERUM 4.8 MEQ/L (3.5-5.1); SODIUM LEVEL 137 MEQ/L (136-145)
[2017-06-16] MEDS: ONDANSETRON 4MG/2ML VIAL (J2405) IV ×2 (07:09→13:58)
[2017-06-16] MEDS: GABAPENTIN 100 MG CAP PO ×2 (08:05→20:44)
[2017-06-16] MEDS: HEPARIN 1,000 UNITS/ML 10ML VIAL (FOR RADIOLOGY& DIALYSIS ONLY) IV (11:45)
[2017-06-16] MEDS: HEPARIN 1,000 UNITS/ML 10ML VIAL (FOR RADIOLOGY& DIALYSIS ONLY) XX (11:45)
[2017-06-16] MEDS: **VANCO AFTER HD** MISC XX (16:00)
[2017-06-16] MEDS: VANCOMYCIN HCL 1,000 MG, VIAL MATE ADAPTER 1 EACH in D5W 250 ML IV (18:02)
[2017-06-17] MEDS: SODIUM CHLORIDE 0.9% INJ 10 ML SYR IV (05:02)
[2017-06-17] MEDS: PERCOCET 5MG/325MG TAB PO ×2 (05:03→11:08)
[2017-06-17 05:29] LABS: HEMATOCRIT 26.2 % (42.0-52.0); HEMOGLOBIN 8.1 g/dl (13.5-17.5); MEAN CORPUSCULAR HEMOGLOBIN 27.4 pg (27.0-33.0); MEAN CORPUSCULAR HGB CONC 30.9 g/dl (32.0-36.5); MEAN CORPUSCULAR VOLUME 88.5 fl (80.0-96.0); PLATELET COUNT, AUTOMATED 208 10^3/uL (150-450); RED BLOOD COUNT 2.96 10^6/uL (4.30-6.10); RED CELL DISTRIBUTION WIDTH 15.5 % (11.5-14.5); WHITE BLOOD COUNT 7.3 10^3/uL (4.0-10.0)
[2017-06-17 05:49] LABS: ERYTHROCYTE SEDIMENTATION RATE 79 mm/hr (0-15)
[2017-06-17 05:52] LABS: ANION GAP 6 MEQ/L (8-16); BLOOD UREA NITROGEN 17 MG/DL (7-18); C REACTIVE PROTEIN QUANTITATIV 6.45 MG/DL (0.00-0.30); CALCIUM LEVEL 7.1 MG/DL (8.5-10.1); CARBON DIOXIDE LEVEL 29 MEQ/L (21-32); CHLORIDE LEVEL 104 MEQ/L (98-107); GLOMERULAR FILTRATION RATE 29.3 (>60); GLUCOSE, FASTING 81 MG/DL (70-100); POTASSIUM SERUM 4.3 MEQ/L (3.5-5.1); SODIUM LEVEL 139 MEQ/L (136-145)
[2017-06-17] MEDS: DOCUSATE SODIUM 100 MG CAP PO (08:51)
[2017-06-17] MEDS: SENNA 8.6 MG TAB (SENOKOT) PO (08:51)
[2017-06-17] MEDS: GABAPENTIN 100 MG CAP PO (08:51)
[2017-06-17] MEDS: NYSTATIN 100,000 UNITS/GM TOPICAL PWD 15 GM TOP (08:52)
[2017-06-17] MEDS: PANTOPRAZOLE 40MG TAB (PROTONIX) PO (08:52)
[2017-06-17] MEDS: METOPROLOL TART 50 MG TAB PO (08:54)
[2017-06-22 00:07] LABS: HEPATITIS C QUANTITATION HCV Not Detected IU/mL (.)
== END 2017-06-17 12:23 | disposition home or self-care (01) | DRG 720 ==
LOC: M PCU 05-19 00:47 → M ICU 05-22 08:34 → M PCU 05-23 18:42 → M MSPAV 05-30 16:15 → M ED 11:44 → M ED INP 18:28 → M PCU 20:34
PROC: 30233N1 Transfusion of Nonautologous Red Blood Cells into Peripheral Vein, Percutaneous Approach (ICD-10-PCS; 2017-05-17)
PROC: 0JH63XZ Insertion of Tunneled Vascular Access Device into Chest Subcutaneous Tissue and Fascia, Percutaneous Approach (ICD-10-PCS; principal; 2017-05-18)
PROC: 02HV33Z Insertion of Infusion Device into Superior Vena Cava, Percutaneous Approach (ICD-10-PCS; 2017-05-18)
PROC: 5A1D70Z Performance of Urinary Filtration, Intermittent, Less than 6 Hours Per Day (ICD-10-PCS; 2017-05-18)
PROC: 02HV33Z Insertion of Infusion Device into Superior Vena Cava, Percutaneous Approach (ICD-10-PCS; 2017-06-10)
DX: A41.02 Sepsis due to Methicillin resistant Staphylococcus aureus (principal); J96.01 Acute respiratory failure with hypoxia; I33.9 Acute and subacute endocarditis, unspecified; I76 Septic arterial embolism; E43 Unspecified severe protein-calorie malnutrition; E87.2 Acidosis; D69.6 Thrombocytopenia, unspecified; N17.9 Acute kidney failure, unspecified; J18.9 Pneumonia, unspecified organism; E88.09 Other disorders of plasma-protein metabolism, not elsewhere classified; E87.1 Hypo-osmolality and hyponatremia; E87.5 Hyperkalemia; N28.0 Ischemia and infarction of kidney; D50.9 Iron deficiency anemia, unspecified; R80.9 Proteinuria, unspecified; F11.11 Opioid abuse, in remission; R31.9 Hematuria, unspecified; B19.20 Unspecified viral hepatitis C without hepatic coma; Y95 Nosocomial condition; Z79.899 Other long term (current) drug therapy; Z72.0 Tobacco use

== ENCOUNTER 2017-09-01 09:54 | Inpatient (IN) | payer OTHER ==
[2017-09-01] MEDS: NS IV (10:45)
[2017-09-01] MEDS: DILUENT IV (10:45)
[2017-09-01 10:46] LABS: ABG BASE EXCESS -5.4 (-2.0-2.0); ABG HCO3 18.7 MEQ/L (22.0-26.0); ABG O2 SATURATION 99.2 % (95.0-99.0); ABG PARTIAL PRESSURE CO2 32.4 mmHg (35.0-45.0); ABG PARTIAL PRESSURE O2 145.6 mmHg (75.0-100.0); ABG TOTAL CO2 19.7 MEQ/L (22.0-29.0)
[2017-09-01] MEDS: NS 1,000 ML IV ×4 (13:24→22:30)
[2017-09-01 13:42] LABS: HEMATOCRIT 33.8 % (42.0-52.0); MEAN CORPUSCULAR HEMOGLOBIN 28.8 pg (27.0-33.0); MEAN CORPUSCULAR HGB CONC 32.5 g/dl (32.0-36.5); MEAN CORPUSCULAR VOLUME 88.5 fl (80.0-96.0); RED BLOOD COUNT 3.82 10^6/uL (4.30-6.10); RED CELL DISTRIBUTION WIDTH 15.1 % (11.5-14.5); WHITE BLOOD COUNT 9.6 10^3/uL (4.0-10.0)
[2017-09-01] MEDS: cefTRIAXone SOD 2 GM in D5W MINI-BAG PLUS 50 ML IV (13:44)
[2017-09-01 13:51] LABS: INR 1.22; PROTHROMBIN TIME 15.5 SECONDS (12.1-14.4)
[2017-09-01 13:52] LABS: PARTIAL THROMBOPLASTIN TIME 31.1 SECONDS (25.4-37.6)
[2017-09-01 14:02] LABS: LACTIC ACID SEPSIS PROTOCOL 0.7 MMOL/L (0.4-2.0)
[2017-09-01 14:03] LABS: ALKALINE PHOSPHATASE 255 U/L (45-117); ALT/SGPT 16 U/L (12-78); AMYLASE 16 U/L (25-115); AST/SGOT 20 U/L (7-37); BILIRUBIN,DIRECT 0.3 MG/DL (0.0-0.2); BILIRUBIN,TOTAL 0.6 MG/DL (0.2-1.0); BLOOD UREA NITROGEN 64 MG/DL (7-18); CHLORIDE LEVEL 101 MEQ/L (98-107); CPK CREATINE PHOSPHOKINASE 9 U/L (39-308); CREATININE FOR GFR 6.09 MG/DL (0.70-1.30); GLUCOSE, FASTING 91 MG/DL (70-100); POTASSIUM SERUM 3.8 MEQ/L (3.5-5.1); SODIUM LEVEL 132 MEQ/L (136-145); TOTAL PROTEIN 6.5 GM/DL (6.4-8.2); TROPONIN I < 0.02 NG/ML (< 0.10)
[2017-09-01 14:09] LABS: CK-MB VALUE MASS < 1.0 NG/ML (<3.6); MB/CK RELATIVE INDEX 11.11 (< OR =4)
[2017-09-01 14:22] LABS: PLATELET COUNT, AUTOMATED 81 10^3/uL (150-450); POS COUNT POS FLAG; POSITIVE MORPH POS FLAG
[2017-09-01 14:25] LABS: ADD MANUAL DIFFER YES; DIFF SLIDE NUMBER 169
[2017-09-01 14:33] LABS: BANDS 1 % (< 11); BASOPHILS 1 % (0-4); EOSINOPHILS 1 % (0-5); LYMPHOCYTES 6 % (16-52); MONOCYTES 9 % (0-8); NEUTROPHILS 82 % (35-75); PLATELET ESTIMATE DECREASED (NORMAL)
[2017-09-01 15:05] LABS: ALBUMIN 2.1 GM/DL (3.2-5.2); ALBUMIN/GLOBULIN RATIO 0.48 (1.00-1.93); ANION GAP 9 MEQ/L (8-16); CARBON DIOXIDE LEVEL 22 MEQ/L (21-32)
[2017-09-01] MEDS: VANCOMYCIN HCL 1,000 MG, VIAL MATE ADAPTER 1 EACH in D5W 250 ML IV (16:45)
[2017-09-01 16:49] LABS: APPEARANCE, URINE CLOUDY (CLEAR); BACTERIA, URINE AUTO NEGATIVE (NEGATIVE); BILIRUBIN, URINE AUTO NEGATIVE (NEGATIVE); BLOOD, URINE BLOOD 3+ (NEGATIVE); COLOR, URINE YELLOW (YELLOW); GLUCOSE, URINE (UA) AUTO NEGATIVE (NEGATIVE); KETONE, URINE AUTO NEGATIVE (NEGATIVE); LEUKOCYTE ESTERASE, URINE AUTO TRACE (NEGATIVE); NITRITE, URINE AUTO NEGATIVE (NEGATIVE); PROTEIN, URINE AUTO 1+ mg/dL (NEGATIVE); RBC, URINE AUTO TNTC /HPF (0-3); SPECIFIC GRAVITY URINE AUTO 1.012 (1.002-1.035); SQUAMOUS EPITHELIAL CELL UR AU 0 /HPF (0-6); UROBILINOGEN, URINE AUTO 0.2 mg/dL (0.0-2.0); WBC, URINE AUTO 13 /HPF (0-3)
[2017-09-01 18:54] LABS: IMMATURE PLATELET FRACTION % 8.7 % (0.0-10.9)
[2017-09-01] MEDS: ACETAMINOPHEN 500 MG TAB PO (19:21)
[2017-09-01] MEDS: MEROPENEM INJ 500 MG in APPROPRIATE DILUENT 1 EA IV (22:29)
[2017-09-01] MEDS ORDERED: VANCOMYCIN INTERMITTENT/PULSE DOSING BY CLINICAL PHARMACIST PER DOSING PROTOCOL XX (23:00)
[2017-09-02] MEDS: NS 1,000 ML IV ×3 (00:23→13:59)
[2017-09-02] MEDS: METHADONE 5 MG TAB (S0109) PO ×5 (02:00→20:53)
[2017-09-02] MEDS ORDERED: SODIUM CHLORIDE 0.9% INJ 10 ML SYR IV (05:00)
[2017-09-02] MEDS: SODIUM CHLORIDE 0.9% INJ 10 ML SYR IV ×3 (06:16→21:46)
[2017-09-02 06:44] LABS: VANCOMYCIN RANDOM 16.3 UG/ML
[2017-09-02 07:22] LABS: ALBUMIN 1.8 GM/DL (3.2-5.2); ANION GAP 12 MEQ/L (8-16); BLOOD UREA NITROGEN 61 MG/DL (7-18); CALCIUM LEVEL 7.6 MG/DL (8.5-10.1); CARBON DIOXIDE LEVEL 19 MEQ/L (21-32); CHLORIDE LEVEL 107 MEQ/L (98-107); CREATININE FOR GFR 5.16 MG/DL (0.70-1.30); GLOMERULAR FILTRATION RATE 14.5 (>60); GLUCOSE, FASTING 94 MG/DL (70-100); PHOSPHORUS LEVEL 4.8 MG/DL (2.5-4.9); POTASSIUM SERUM 4.2 MEQ/L (3.5-5.1); SODIUM LEVEL 138 MEQ/L (136-145)
[2017-09-02] MEDS: MORPHINE 4 MG/ML 1ML VIAL/SYRINGE (J2270) IV ×3 (09:06→20:09)
[2017-09-02] MEDS: VANCOMYCIN HCL 1,000 MG, VIAL MATE ADAPTER 1 EACH in D5W 250 ML IV (09:06)
[2017-09-02] MEDS: MEROPENEM INJ 500 MG in APPROPRIATE DILUENT 1 EA IV ×2 (10:23→21:47)
[2017-09-02] MEDS: ACETAMINOPHEN 500 MG TAB PO (20:19)
[2017-09-02] MEDS ORDERED: METHADONE 5 MG TAB (S0109) PO (21:00)
[2017-09-03] MEDS: NS 1,000 ML IV (00:31)
[2017-09-03] MEDS: MORPHINE 4 MG/ML 1ML VIAL/SYRINGE (J2270) IV ×7 (00:32→21:22)
[2017-09-03] MEDS: SODIUM CHLORIDE 0.9% INJ 10 ML SYR IV ×3 (05:00→21:22)
[2017-09-03 05:20] LABS: HEMATOCRIT 31.1 % (42.0-52.0); HEMOGLOBIN 10.1 g/dl (13.5-17.5); MEAN CORPUSCULAR HEMOGLOBIN 28.3 pg (27.0-33.0); MEAN CORPUSCULAR HGB CONC 32.5 g/dl (32.0-36.5); MEAN CORPUSCULAR VOLUME 87.1 fl (80.0-96.0); PLATELET COUNT, AUTOMATED 101 10^3/uL (150-450); RED BLOOD COUNT 3.57 10^6/uL (4.30-6.10); RED CELL DISTRIBUTION WIDTH 15.4 % (11.5-14.5); WHITE BLOOD COUNT 10.1 10^3/uL (4.0-10.0)
[2017-09-03 05:58] LABS: ALBUMIN 1.6 GM/DL (3.2-5.2); ANION GAP 9 MEQ/L (8-16); BLOOD UREA NITROGEN 53 MG/DL (7-18); CALCIUM LEVEL 7.4 MG/DL (8.5-10.1); CARBON DIOXIDE LEVEL 20 MEQ/L (21-32); CHLORIDE LEVEL 111 MEQ/L (98-107); CREATININE FOR GFR 4.18 MG/DL (0.70-1.30); GLOMERULAR FILTRATION RATE 18.5 (>60); GLUCOSE, FASTING 91 MG/DL (70-100); PHOSPHORUS LEVEL 4.8 MG/DL (2.5-4.9); SODIUM LEVEL 140 MEQ/L (136-145); VANCOMYCIN RANDOM 21.1 UG/ML
[2017-09-03] MEDS: METHADONE 5 MG TAB (S0109) PO ×2 (09:06→21:23)
[2017-09-03] MEDS: MEROPENEM INJ 500 MG in APPROPRIATE DILUENT 1 EA IV ×2 (10:18→21:23)
[2017-09-03] MEDS: D5W/0.45% SODIUM CHLORIDE 1,000 ML IV ×2 (11:46→23:55)
[2017-09-03] MEDS: ACETAMINOPHEN 500 MG TAB PO (18:22)
[2017-09-03] MEDS: HEPARIN SOD (PORCINE) 5000 UNITS/ML VIAL SQ (21:00)
[2017-09-04] MEDS: MORPHINE 4 MG/ML 1ML VIAL/SYRINGE (J2270) IV ×6 (01:25→22:24)
[2017-09-04] MEDS: SODIUM CHLORIDE 0.9% INJ 10 ML SYR IV ×3 (05:51→21:56)
[2017-09-04 06:07] LABS: HEMATOCRIT 31.7 % (42.0-52.0); HEMOGLOBIN 10.3 g/dl (13.5-17.5); MEAN CORPUSCULAR HEMOGLOBIN 28.8 pg (27.0-33.0); MEAN CORPUSCULAR HGB CONC 32.5 g/dl (32.0-36.5); MEAN CORPUSCULAR VOLUME 88.5 fl (80.0-96.0); PLATELET COUNT, AUTOMATED 112 10^3/uL (150-450); RED BLOOD COUNT 3.58 10^6/uL (4.30-6.10); RED CELL DISTRIBUTION WIDTH 15.6 % (11.5-14.5); WHITE BLOOD COUNT 11.6 10^3/uL (4.0-10.0)
[2017-09-04 06:48] LABS: ALBUMIN 1.6 GM/DL (3.2-5.2); ANION GAP 12 MEQ/L (8-16); BLOOD UREA NITROGEN 46 MG/DL (7-18); CALCIUM LEVEL 7.3 MG/DL (8.5-10.1); CARBON DIOXIDE LEVEL 18 MEQ/L (21-32); CHLORIDE LEVEL 107 MEQ/L (98-107); CREATININE FOR GFR 3.44 MG/DL (0.70-1.30); GLOMERULAR FILTRATION RATE 23.1 (>60); GLUCOSE, FASTING 102 MG/DL (70-100); PHOSPHORUS LEVEL 5.5 MG/DL (2.5-4.9); POTASSIUM SERUM 3.8 MEQ/L (3.5-5.1); SODIUM LEVEL 137 MEQ/L (136-145)
[2017-09-04] MEDS: HEPARIN SOD (PORCINE) 5000 UNITS/ML VIAL SQ ×2 (09:00→21:00)
[2017-09-04] MEDS: METHADONE 5 MG TAB (S0109) PO ×2 (09:17→21:41)
[2017-09-04] MEDS: D5W/0.45% SODIUM CHLORIDE 1,000 ML IV ×2 (09:17→18:18)
[2017-09-04] MEDS: NAFCILLIN SOD 2 GM in D5W MINI-BAG PLUS 50 ML IV ×4 (10:28→21:56)
[2017-09-05] MEDS: NAFCILLIN SOD 2 GM in D5W MINI-BAG PLUS 50 ML IV ×6 (02:25→22:42)
[2017-09-05] MEDS: MORPHINE 4 MG/ML 1ML VIAL/SYRINGE (J2270) IV ×6 (02:26→22:44)
[2017-09-05] MEDS: D5W/0.45% SODIUM CHLORIDE 1,000 ML IV ×3 (04:46→23:53)
[2017-09-05 05:04] LABS: HEMATOCRIT 30.3 % (42.0-52.0); HEMOGLOBIN 9.8 g/dl (13.5-17.5); MEAN CORPUSCULAR HEMOGLOBIN 28.8 pg (27.0-33.0); MEAN CORPUSCULAR HGB CONC 32.3 g/dl (32.0-36.5); MEAN CORPUSCULAR VOLUME 89.1 fl (80.0-96.0); PLATELET COUNT, AUTOMATED 117 10^3/uL (150-450); RED CELL DISTRIBUTION WIDTH 15.6 % (11.5-14.5); WHITE BLOOD COUNT 10.8 10^3/uL (4.0-10.0)
[2017-09-05 05:25] LABS: ALBUMIN 1.4 GM/DL (3.2-5.2); ANION GAP 11 MEQ/L (8-16); BLOOD UREA NITROGEN 46 MG/DL (7-18); CALCIUM LEVEL 6.6 MG/DL (8.5-10.1); CARBON DIOXIDE LEVEL 19 MEQ/L (21-32); CHLORIDE LEVEL 107 MEQ/L (98-107); CREATININE FOR GFR 3.18 MG/DL (0.70-1.30); GLOMERULAR FILTRATION RATE 25.3 (>60); GLUCOSE, FASTING 100 MG/DL (70-100); PHOSPHORUS LEVEL 6.5 MG/DL (2.5-4.9); POTASSIUM SERUM 3.8 MEQ/L (3.5-5.1); SODIUM LEVEL 137 MEQ/L (136-145)
[2017-09-05] MEDS: SODIUM CHLORIDE 0.9% INJ 10 ML SYR IV ×3 (06:45→22:44)
[2017-09-05] MEDS: HEPARIN SOD (PORCINE) 5000 UNITS/ML VIAL SQ ×2 (09:00→20:44)
[2017-09-05] MEDS: METHADONE 5 MG TAB (S0109) PO ×2 (09:27→20:50)
[2017-09-06] MEDS: NAFCILLIN SOD 2 GM in D5W MINI-BAG PLUS 50 ML IV ×6 (02:37→21:24)
[2017-09-06] MEDS: SODIUM CHLORIDE 0.9% INJ 10 ML SYR IV ×3 (06:02→21:25)
[2017-09-06] MEDS: MORPHINE 4 MG/ML 1ML VIAL/SYRINGE (J2270) IV ×5 (06:02→22:44)
[2017-09-06 06:22] LABS: HEMATOCRIT 32.3 % (42.0-52.0); HEMOGLOBIN 10.5 g/dl (13.5-17.5); MEAN CORPUSCULAR HEMOGLOBIN 28.4 pg (27.0-33.0); MEAN CORPUSCULAR HGB CONC 32.5 g/dl (32.0-36.5); MEAN CORPUSCULAR VOLUME 87.3 fl (80.0-96.0); PLATELET COUNT, AUTOMATED 146 10^3/uL (150-450); RED CELL DISTRIBUTION WIDTH 15.8 % (11.5-14.5)
[2017-09-06 07:17] LABS: ALBUMIN 1.4 GM/DL (3.2-5.2); ANION GAP 12 MEQ/L (8-16); BLOOD UREA NITROGEN 45 MG/DL (7-18); CALCIUM LEVEL 6.9 MG/DL (8.5-10.1); CARBON DIOXIDE LEVEL 16 MEQ/L (21-32); CHLORIDE LEVEL 106 MEQ/L (98-107); CREATININE FOR GFR 3.13 MG/DL (0.70-1.30); GLOMERULAR FILTRATION RATE 25.8 (>60); GLUCOSE, FASTING 113 MG/DL (70-100); PHOSPHORUS LEVEL 8.5 MG/DL (2.5-4.9); SODIUM LEVEL 134 MEQ/L (136-145)
[2017-09-06] MEDS: (RENVELA) SEVELAMER **CARBONate** 800 MG TAB PO ×3 (08:56→17:35)
[2017-09-06] MEDS: METHADONE 5 MG TAB (S0109) PO ×2 (08:57→21:25)
[2017-09-06] MEDS: HEPARIN SOD (PORCINE) 5000 UNITS/ML VIAL SQ ×3 (08:57→22:41)
[2017-09-06] MEDS: SODIUM BICARBONATE 75 MEQ in NS 0.45% 1,000 ML IV ×2 (09:41→21:26)
[2017-09-06 10:16] LABS: PTH INTACT 91.1 PG/ML (18.5-88.0)
[2017-09-07] MEDS: NAFCILLIN SOD 2 GM in D5W MINI-BAG PLUS 50 ML IV ×6 (02:23→22:57)
[2017-09-07] MEDS: MORPHINE 4 MG/ML 1ML VIAL/SYRINGE (J2270) IV ×5 (02:48→19:32)
[2017-09-07] MEDS: SODIUM CHLORIDE 0.9% INJ 10 ML SYR IV ×3 (05:18→22:00)
[2017-09-07 05:53] LABS: HEMATOCRIT 31.6 % (42.0-52.0); HEMOGLOBIN 10.3 g/dl (13.5-17.5); MEAN CORPUSCULAR HEMOGLOBIN 28.1 pg (27.0-33.0); MEAN CORPUSCULAR HGB CONC 32.6 g/dl (32.0-36.5); MEAN CORPUSCULAR VOLUME 86.3 fl (80.0-96.0); PLATELET COUNT, AUTOMATED 186 10^3/uL (150-450); RED BLOOD COUNT 3.66 10^6/uL (4.30-6.10); RED CELL DISTRIBUTION WIDTH 15.6 % (11.5-14.5); WHITE BLOOD COUNT 11.8 10^3/uL (4.0-10.0)
[2017-09-07 06:12] LABS: ALBUMIN 1.2 GM/DL (3.2-5.2); ANION GAP 13 MEQ/L (8-16); BLOOD UREA NITROGEN 45 MG/DL (7-18); CALCIUM LEVEL 6.9 MG/DL (8.5-10.1); CARBON DIOXIDE LEVEL 20 MEQ/L (21-32); CHLORIDE LEVEL 106 MEQ/L (98-107); CREATININE FOR GFR 2.96 MG/DL (0.70-1.30); GLOMERULAR FILTRATION RATE 27.5 (>60); GLUCOSE, FASTING 92 MG/DL (70-100); POTASSIUM SERUM 3.8 MEQ/L (3.5-5.1); SODIUM LEVEL 139 MEQ/L (136-145)
[2017-09-07] MEDS: (RENVELA) SEVELAMER **CARBONate** 800 MG TAB PO ×3 (08:00→17:36)
[2017-09-07] MEDS: LANTHANUM CARBONATE 500 MG CHEW TABLET PO ×3 (10:18→17:36)
[2017-09-07] MEDS: METHADONE 5 MG TAB (S0109) PO ×2 (10:50→19:32)
[2017-09-07] MEDS: SODIUM BICARBONATE 75 MEQ in NS 0.45% 1,000 ML IV (13:55)
[2017-09-07] MEDS: ONDANSETRON 4MG/2ML VIAL (J2405) IV (19:32)
[2017-09-07] MEDS: HEPARIN SOD (PORCINE) 5000 UNITS/ML VIAL SQ (20:29)
[2017-09-08] MEDS: MORPHINE 4 MG/ML 1ML VIAL/SYRINGE (J2270) IV ×6 (00:16→23:02)
[2017-09-08] MEDS: NAFCILLIN SOD 2 GM in D5W MINI-BAG PLUS 50 ML IV ×6 (02:00→21:40)
[2017-09-08] MEDS: SODIUM CHLORIDE 0.9% INJ 10 ML SYR IV ×2 (04:47→18:03)
[2017-09-08 05:02] LABS: BASO % 0.3 % (0.0-1.0); EOS # 0.2 10^3/uL (0.0-0.50); EOS % 1.5 % (0.0-3.0); HEMATOCRIT 31.2 % (42.0-52.0); HEMOGLOBIN 10.1 g/dl (13.5-17.5); IMMATURE GRANULOCYTE # 0.3 10^3/uL (0-0); IMMATURE GRANULOCYTE % 2.9 % (0-3.0); LYMPH # 1.2 10^3/uL (1.5-6.5); LYMPH % 10.8 % (24.0-44.0); MEAN CORPUSCULAR HEMOGLOBIN 28.4 pg (27.0-33.0); MEAN CORPUSCULAR HGB CONC 32.4 g/dl (32.0-36.5); MEAN CORPUSCULAR VOLUME 87.6 fl (80.0-96.0); MONO # 0.7 10^3/uL (0.0-0.8); MONO % 6.2 % (0.0-5.0); NEUTROPHILS # 8.8 10^3/uL (1.8-7.7); NEUTROPHILS % 78.3 % (36.0-66.0); PLATELET COUNT, AUTOMATED 217 10^3/uL (150-450); RED BLOOD COUNT 3.56 10^6/uL (4.30-6.10); RED CELL DISTRIBUTION WIDTH 15.6 % (11.5-14.5); WHITE BLOOD COUNT 11.2 10^3/uL (4.0-10.0)
[2017-09-08 05:39] LABS: DIFF SLIDE NUMBER 9
[2017-09-08 06:07] LABS: ALBUMIN 1.2 GM/DL (3.2-5.2); ANION GAP 11 MEQ/L (8-16); BLOOD UREA NITROGEN 45 MG/DL (7-18); CALCIUM LEVEL 6.8 MG/DL (8.5-10.1); CARBON DIOXIDE LEVEL 21 MEQ/L (21-32); CHLORIDE LEVEL 107 MEQ/L (98-107); CREATININE FOR GFR 2.95 MG/DL (0.70-1.30); GLOMERULAR FILTRATION RATE 27.6 (>60); GLUCOSE, FASTING 90 MG/DL (70-100); PHOSPHORUS LEVEL 9.1 MG/DL (2.5-4.9); POTASSIUM SERUM 3.7 MEQ/L (3.5-5.1); SODIUM LEVEL 139 MEQ/L (136-145)
[2017-09-08] MEDS: HEPARIN SOD (PORCINE) 5000 UNITS/ML VIAL SQ ×2 (09:00→21:00)
[2017-09-08] MEDS: (RENVELA) SEVELAMER **CARBONate** 800 MG TAB PO ×3 (09:45→18:03)
[2017-09-08] MEDS: LANTHANUM CARBONATE 500 MG CHEW TABLET PO ×3 (09:45→18:03)
[2017-09-08] MEDS: METHADONE 5 MG TAB (S0109) PO ×2 (09:45→21:39)
[2017-09-08] MEDS: SODIUM BICARBONATE 75 MEQ in NS 0.45% 1,000 ML IV (21:44)
[2017-09-08] MEDS: ONDANSETRON 4MG/2ML VIAL (J2405) IV (23:02)
[2017-09-09] MEDS: NAFCILLIN SOD 2 GM in D5W MINI-BAG PLUS 50 ML IV ×6 (02:02→21:57)
[2017-09-09] MEDS: MORPHINE 4 MG/ML 1ML VIAL/SYRINGE (J2270) IV ×5 (03:36→21:54)
[2017-09-09] MEDS: SODIUM CHLORIDE 0.9% INJ 10 ML SYR IV ×5 (05:29→23:22)
[2017-09-09 05:43] LABS: HEMATOCRIT 30.6 % (42.0-52.0); HEMOGLOBIN 9.9 g/dl (13.5-17.5); MEAN CORPUSCULAR HEMOGLOBIN 28.3 pg (27.0-33.0); MEAN CORPUSCULAR HGB CONC 32.4 g/dl (32.0-36.5); MEAN CORPUSCULAR VOLUME 87.4 fl (80.0-96.0); PLATELET COUNT, AUTOMATED 235 10^3/uL (150-450); RED CELL DISTRIBUTION WIDTH 15.5 % (11.5-14.5); WHITE BLOOD COUNT 9.8 10^3/uL (4.0-10.0)
[2017-09-09 06:09] LABS: ALBUMIN 1.2 GM/DL (3.2-5.2); ANION GAP 11 MEQ/L (8-16); BLOOD UREA NITROGEN 35 MG/DL (7-18); CALCIUM LEVEL 6.9 MG/DL (8.5-10.1); CARBON DIOXIDE LEVEL 23 MEQ/L (21-32); CHLORIDE LEVEL 108 MEQ/L (98-107); CREATININE FOR GFR 2.53 MG/DL (0.70-1.30); GLOMERULAR FILTRATION RATE 32.9 (>60); GLUCOSE, FASTING 88 MG/DL (70-100); PHOSPHORUS LEVEL 8.2 MG/DL (2.5-4.9); POTASSIUM SERUM 3.3 MEQ/L (3.5-5.1); SODIUM LEVEL 142 MEQ/L (136-145)
[2017-09-09] MEDS: (RENVELA) SEVELAMER **CARBONate** 800 MG TAB PO ×4 (08:37→16:50)
[2017-09-09] MEDS: LANTHANUM CARBONATE 500 MG CHEW TABLET PO ×4 (08:37→16:50)
[2017-09-09] MEDS: HEPARIN SOD (PORCINE) 5000 UNITS/ML VIAL SQ ×2 (09:00→21:00)
[2017-09-09] MEDS: METHADONE 5 MG TAB (S0109) PO ×2 (09:45→21:56)
[2017-09-09] MEDS: ONDANSETRON 4MG/2ML VIAL (J2405) IV ×2 (13:17→18:14)
[2017-09-09] MEDS: POTASSIUM CHLORIDE 10 MEQ SR TABLET PO (16:45)
[2017-09-10] MEDS: NAFCILLIN SOD 2 GM in D5W MINI-BAG PLUS 50 ML IV ×6 (02:10→21:50)
[2017-09-10] MEDS: MORPHINE 4 MG/ML 1ML VIAL/SYRINGE (J2270) IV ×5 (02:18→20:33)
[2017-09-10] MEDS: SODIUM CHLORIDE 0.9% INJ 10 ML SYR IV ×5 (03:33→20:33)
[2017-09-10 07:16] LABS: C REACTIVE PROTEIN QUANTITATIV 8.49 MG/DL (0.00-0.30)
[2017-09-10] MEDS: HEPARIN SOD (PORCINE) 5000 UNITS/ML VIAL SQ ×3 (09:00→21:00)
[2017-09-10 10:37] LABS: ALBUMIN 1.2 GM/DL (3.2-5.2); ANION GAP 10 MEQ/L (8-16); BLOOD UREA NITROGEN 27 MG/DL (7-18); CARBON DIOXIDE LEVEL 23 MEQ/L (21-32); CHLORIDE LEVEL 110 MEQ/L (98-107); CREATININE FOR GFR 2.19 MG/DL (0.70-1.30); GLOMERULAR FILTRATION RATE 38.9 (>60); GLUCOSE, FASTING 94 MG/DL (70-100); PHOSPHORUS LEVEL 6.4 MG/DL (2.5-4.9); POTASSIUM SERUM 3.6 MEQ/L (3.5-5.1); SODIUM LEVEL 143 MEQ/L (136-145)
[2017-09-10] MEDS: LANTHANUM CARBONATE 500 MG CHEW TABLET PO ×3 (10:40→17:01)
[2017-09-10] MEDS: (RENVELA) SEVELAMER **CARBONate** 800 MG TAB PO ×3 (10:40→17:01)
[2017-09-10] MEDS: METHADONE 5 MG TAB (S0109) PO ×2 (10:41→21:49)
[2017-09-10] MEDS: FUROSEMIDE 20 MG/2 ML VIAL (J1940) IV (14:06)
[2017-09-10] MEDS: ONDANSETRON 4MG/2ML VIAL (J2405) IV (17:01)
[2017-09-11] MEDS: NAFCILLIN SOD 2 GM in D5W MINI-BAG PLUS 50 ML IV ×6 (01:57→21:50)
[2017-09-11] MEDS: SODIUM CHLORIDE 0.9% INJ 10 ML SYR IV ×2 (05:37→17:31)
[2017-09-11 05:51] LABS: BASO % 0.3 % (0.0-1.0); EOS # 0.1 10^3/uL (0.0-0.50); EOS % 1.5 % (0.0-3.0); HEMATOCRIT 29.1 % (42.0-52.0); IMMATURE GRANULOCYTE % 0.8 % (0-3.0); LYMPH # 1.5 10^3/uL (1.5-6.5); LYMPH % 16.6 % (24.0-44.0); MEAN CORPUSCULAR HGB CONC 30.9 g/dl (32.0-36.5); MEAN CORPUSCULAR VOLUME 90.4 fl (80.0-96.0); MONO # 0.7 10^3/uL (0.0-0.8); MONO % 7.8 % (0.0-5.0); NEUTROPHILS # 6.4 10^3/uL (1.8-7.7); PLATELET COUNT, AUTOMATED 269 10^3/uL (150-450); RED BLOOD COUNT 3.22 10^6/uL (4.30-6.10); RED CELL DISTRIBUTION WIDTH 15.1 % (11.5-14.5); WHITE BLOOD COUNT 8.8 10^3/uL (4.0-10.0)
[2017-09-11 06:07] LABS: ALBUMIN 1.3 GM/DL (3.2-5.2); ANION GAP 9 MEQ/L (8-16); BLOOD UREA NITROGEN 23 MG/DL (7-18); CARBON DIOXIDE LEVEL 24 MEQ/L (21-32); CHLORIDE LEVEL 110 MEQ/L (98-107); CREATININE FOR GFR 1.97 MG/DL (0.70-1.30); GLUCOSE, FASTING 91 MG/DL (70-100); PHOSPHORUS LEVEL 5.9 MG/DL (2.5-4.9); POTASSIUM SERUM 3.9 MEQ/L (3.5-5.1); SODIUM LEVEL 143 MEQ/L (136-145)
[2017-09-11] MEDS: HEPARIN SOD (PORCINE) 5000 UNITS/ML VIAL SQ ×2 (07:43→21:00)
[2017-09-11] MEDS: (RENVELA) SEVELAMER **CARBONate** 800 MG TAB PO ×4 (08:00→17:31)
[2017-09-11] MEDS: LANTHANUM CARBONATE 500 MG CHEW TABLET PO ×4 (08:00→17:31)
[2017-09-11] MEDS: ONDANSETRON 4MG/2ML VIAL (J2405) IV (08:12)
[2017-09-11] MEDS: METHADONE 5 MG TAB (S0109) PO ×2 (08:12→21:50)
[2017-09-11] MEDS: MORPHINE 4 MG/ML 1ML VIAL/SYRINGE (J2270) IV ×3 (08:12→21:50)
[2017-09-11] MEDS: FUROSEMIDE 20 MG/2 ML VIAL (J1940) IV (17:41)
[2017-09-12] MEDS: NAFCILLIN SOD 2 GM in D5W MINI-BAG PLUS 50 ML IV ×6 (02:30→22:00)
[2017-09-12] MEDS: SODIUM CHLORIDE 0.9% INJ 10 ML SYR IV ×2 (05:48→18:41)
[2017-09-12] MEDS: MORPHINE 4 MG/ML 1ML VIAL/SYRINGE (J2270) IV ×4 (05:48→19:43)
[2017-09-12 06:03] LABS: BASO % 0.3 % (0.0-1.0); EOS # 0.2 10^3/uL (0.0-0.50); EOS % 2.6 % (0.0-3.0); HEMATOCRIT 28.7 % (42.0-52.0); IMMATURE GRANULOCYTE % 0.7 % (0-3.0); LYMPH # 1.4 10^3/uL (1.5-6.5); LYMPH % 18.7 % (24.0-44.0); MEAN CORPUSCULAR HEMOGLOBIN 28.1 pg (27.0-33.0); MEAN CORPUSCULAR HGB CONC 31.4 g/dl (32.0-36.5); MEAN CORPUSCULAR VOLUME 89.7 fl (80.0-96.0); MONO # 0.6 10^3/uL (0.0-0.8); MONO % 7.7 % (0.0-5.0); NEUTROPHILS # 5.2 10^3/uL (1.8-7.7); PLATELET COUNT, AUTOMATED 260 10^3/uL (150-450); RED CELL DISTRIBUTION WIDTH 14.8 % (11.5-14.5); WHITE BLOOD COUNT 7.4 10^3/uL (4.0-10.0)
[2017-09-12 06:23] LABS: ALBUMIN 1.3 GM/DL (3.2-5.2); ANION GAP 8 MEQ/L (8-16); BLOOD UREA NITROGEN 18 MG/DL (7-18); CALCIUM LEVEL 7.5 MG/DL (8.5-10.1); CARBON DIOXIDE LEVEL 24 MEQ/L (21-32); CHLORIDE LEVEL 112 MEQ/L (98-107); CREATININE FOR GFR 1.92 MG/DL (0.70-1.30); GLOMERULAR FILTRATION RATE 45.3 (>60); GLUCOSE, FASTING 83 MG/DL (70-100); PHOSPHORUS LEVEL 5.2 MG/DL (2.5-4.9); SODIUM LEVEL 144 MEQ/L (136-145)
[2017-09-12] MEDS: LANTHANUM CARBONATE 500 MG CHEW TABLET PO ×3 (08:00→16:23)
[2017-09-12] MEDS: (RENVELA) SEVELAMER **CARBONate** 800 MG TAB PO ×3 (08:00→16:23)
[2017-09-12] MEDS: HEPARIN SOD (PORCINE) 5000 UNITS/ML VIAL SQ ×2 (09:00→20:37)
[2017-09-12] MEDS: METHADONE 5 MG TAB (S0109) PO ×2 (10:08→22:00)
[2017-09-12] MEDS: ONDANSETRON 4MG/2ML VIAL (J2405) IV (22:00)
[2017-09-13] MEDS: MORPHINE 4 MG/ML 1ML VIAL/SYRINGE (J2270) IV ×6 (02:00→22:51)
[2017-09-13] MEDS: NAFCILLIN SOD 2 GM in D5W MINI-BAG PLUS 50 ML IV ×6 (02:00→22:51)
[2017-09-13] MEDS: SODIUM CHLORIDE 0.9% INJ 10 ML SYR IV ×2 (06:10→18:41)
[2017-09-13 06:30] LABS: BASO # 0.1 10^3/uL (0.0-0.2); BASO % 0.8 % (0.0-1.0); EOS # 0.2 10^3/uL (0.0-0.50); HEMATOCRIT 29.3 % (42.0-52.0); HEMOGLOBIN 9.2 g/dl (13.5-17.5); IMMATURE GRANULOCYTE % 0.5 % (0-3.0); LYMPH # 1.6 10^3/uL (1.5-6.5); LYMPH % 24.8 % (24.0-44.0); MEAN CORPUSCULAR HGB CONC 31.4 g/dl (32.0-36.5); MEAN CORPUSCULAR VOLUME 89.3 fl (80.0-96.0); MONO # 0.6 10^3/uL (0.0-0.8); MONO % 8.7 % (0.0-5.0); NEUTROPHILS % 62.2 % (36.0-66.0); PLATELET COUNT, AUTOMATED 281 10^3/uL (150-450); RED BLOOD COUNT 3.28 10^6/uL (4.30-6.10); RED CELL DISTRIBUTION WIDTH 14.8 % (11.5-14.5); WHITE BLOOD COUNT 6.3 10^3/uL (4.0-10.0)
[2017-09-13 06:50] LABS: C REACTIVE PROTEIN QUANTITATIV 5.96 MG/DL (0.00-0.30)
[2017-09-13 06:50] LABS: ALBUMIN 1.3 GM/DL (3.2-5.2); ANION GAP 8 MEQ/L (8-16); BLOOD UREA NITROGEN 16 MG/DL (7-18); CALCIUM LEVEL 7.6 MG/DL (8.5-10.1); CARBON DIOXIDE LEVEL 25 MEQ/L (21-32); CHLORIDE LEVEL 112 MEQ/L (98-107); CREATININE FOR GFR 1.86 MG/DL (0.70-1.30); GLUCOSE, FASTING 72 MG/DL (70-100); PHOSPHORUS LEVEL 5.6 MG/DL (2.5-4.9); POTASSIUM SERUM 4.6 MEQ/L (3.5-5.1); SODIUM LEVEL 145 MEQ/L (136-145)
[2017-09-13] MEDS: (RENVELA) SEVELAMER **CARBONate** 800 MG TAB PO ×3 (08:00→17:57)
[2017-09-13] MEDS: LANTHANUM CARBONATE 500 MG CHEW TABLET PO (08:00)
[2017-09-13] MEDS: HEPARIN SOD (PORCINE) 5000 UNITS/ML VIAL SQ ×2 (09:00→21:00)
[2017-09-13] MEDS: METHADONE 5 MG TAB (S0109) PO ×2 (09:12→22:50)
[2017-09-13] MEDS: ONDANSETRON 4MG/2ML VIAL (J2405) IV (22:50)
[2017-09-14] MEDS: NAFCILLIN SOD 2 GM in D5W MINI-BAG PLUS 50 ML IV ×6 (02:45→22:35)
[2017-09-14] MEDS: MORPHINE 4 MG/ML 1ML VIAL/SYRINGE (J2270) IV ×6 (02:45→22:35)
[2017-09-14] MEDS: SODIUM CHLORIDE 0.9% INJ 10 ML SYR IV ×4 (05:11→18:28)
[2017-09-14 05:24] LABS: BASO % 0.6 % (0.0-1.0); EOS # 0.2 10^3/uL (0.0-0.50); EOS % 3.2 % (0.0-3.0); HEMATOCRIT 27.5 % (42.0-52.0); HEMOGLOBIN 8.4 g/dl (13.5-17.5); IMMATURE GRANULOCYTE % 0.5 % (0-3.0); LYMPH # 1.5 10^3/uL (1.5-6.5); LYMPH % 22.4 % (24.0-44.0); MEAN CORPUSCULAR HEMOGLOBIN 27.7 pg (27.0-33.0); MEAN CORPUSCULAR HGB CONC 30.5 g/dl (32.0-36.5); MEAN CORPUSCULAR VOLUME 90.8 fl (80.0-96.0); MONO # 0.5 10^3/uL (0.0-0.8); MONO % 7.8 % (0.0-5.0); NEUTROPHILS # 4.4 10^3/uL (1.8-7.7); NEUTROPHILS % 65.5 % (36.0-66.0); PLATELET COUNT, AUTOMATED 285 10^3/uL (150-450); RED BLOOD COUNT 3.03 10^6/uL (4.30-6.10); RED CELL DISTRIBUTION WIDTH 14.8 % (11.5-14.5); WHITE BLOOD COUNT 6.6 10^3/uL (4.0-10.0)
[2017-09-14 05:50] LABS: ALBUMIN 1.1 GM/DL (3.2-5.2); ANION GAP 9 MEQ/L (8-16); BLOOD UREA NITROGEN 14 MG/DL (7-18); CALCIUM LEVEL 6.3 MG/DL (8.5-10.1); CARBON DIOXIDE LEVEL 22 MEQ/L (21-32); CHLORIDE LEVEL 116 MEQ/L (98-107); CREATININE FOR GFR 1.58 MG/DL (0.70-1.30); GLOMERULAR FILTRATION RATE 56.7 (>60); GLUCOSE, FASTING 79 MG/DL (70-100); PHOSPHORUS LEVEL 4.4 MG/DL (2.5-4.9); POTASSIUM SERUM 3.8 MEQ/L (3.5-5.1); SODIUM LEVEL 147 MEQ/L (136-145)
[2017-09-14] MEDS: (RENVELA) SEVELAMER **CARBONate** 800 MG TAB PO ×3 (08:00→18:00)
[2017-09-14] MEDS: HEPARIN SOD (PORCINE) 5000 UNITS/ML VIAL SQ ×2 (09:00→21:00)
[2017-09-14] MEDS: METHADONE 5 MG TAB (S0109) PO ×2 (09:10→22:34)
[2017-09-14] MEDS: METOCLOPRAMIDE INJ 10MG/2ML VIAL (J2765) IV (22:35)
[2017-09-15] MEDS: NAFCILLIN SOD 2 GM in D5W MINI-BAG PLUS 50 ML IV ×6 (02:47→21:47)
[2017-09-15] MEDS: MORPHINE 4 MG/ML 1ML VIAL/SYRINGE (J2270) IV ×5 (02:47→21:47)
[2017-09-15] MEDS: SODIUM CHLORIDE 0.9% INJ 10 ML SYR IV ×2 (06:51→17:46)
[2017-09-15 07:15] LABS: BASO % 0.6 % (0.0-1.0); EOS # 0.2 10^3/uL (0.0-0.50); EOS % 2.9 % (0.0-3.0); HEMATOCRIT 31.9 % (42.0-52.0); HEMOGLOBIN 9.8 g/dl (13.5-17.5); IMMATURE GRANULOCYTE % 0.5 % (0-3.0); LYMPH # 1.3 10^3/uL (1.5-6.5); LYMPH % 20.2 % (24.0-44.0); MEAN CORPUSCULAR HEMOGLOBIN 28.1 pg (27.0-33.0); MEAN CORPUSCULAR HGB CONC 30.7 g/dl (32.0-36.5); MEAN CORPUSCULAR VOLUME 91.4 fl (80.0-96.0); MONO # 0.5 10^3/uL (0.0-0.8); NEUTROPHILS # 4.5 10^3/uL (1.8-7.7); NEUTROPHILS % 67.8 % (36.0-66.0); PLATELET COUNT, AUTOMATED 327 10^3/uL (150-450); RED BLOOD COUNT 3.49 10^6/uL (4.30-6.10); RED CELL DISTRIBUTION WIDTH 14.7 % (11.5-14.5); WHITE BLOOD COUNT 6.6 10^3/uL (4.0-10.0)
[2017-09-15 07:32] LABS: ALBUMIN 1.4 GM/DL (3.2-5.2); ANION GAP 8 MEQ/L (8-16); BLOOD UREA NITROGEN 16 MG/DL (7-18); CALCIUM LEVEL 7.7 MG/DL (8.5-10.1); CARBON DIOXIDE LEVEL 24 MEQ/L (21-32); CHLORIDE LEVEL 112 MEQ/L (98-107); CREATININE FOR GFR 1.81 MG/DL (0.70-1.30); GLOMERULAR FILTRATION RATE 48.5 (>60); GLUCOSE, FASTING 84 MG/DL (70-100); PHOSPHORUS LEVEL 4.4 MG/DL (2.5-4.9); POTASSIUM SERUM 4.2 MEQ/L (3.5-5.1); SODIUM LEVEL 144 MEQ/L (136-145)
[2017-09-15] MEDS: **hydrALAZINE** 10 MG TAB PO ×3 (07:52→21:48)
[2017-09-15] MEDS: METHADONE 5 MG TAB (S0109) PO ×2 (07:52→21:48)
[2017-09-15] MEDS: (RENVELA) SEVELAMER **CARBONate** 800 MG TAB PO ×3 (07:53→17:45)
[2017-09-15] MEDS ORDERED: **hydrALAZINE** 10 MG TAB PO (09:00)
[2017-09-15] MEDS: HEPARIN SOD (PORCINE) 5000 UNITS/ML VIAL SQ ×2 (10:25→21:00)
[2017-09-15] MEDS: METOCLOPRAMIDE INJ 10MG/2ML VIAL (J2765) IV (21:47)
[2017-09-16] MEDS: NAFCILLIN SOD 2 GM in D5W MINI-BAG PLUS 50 ML IV ×6 (02:12→21:08)
[2017-09-16] MEDS: SODIUM CHLORIDE 0.9% INJ 10 ML SYR IV ×2 (05:31→18:00)
[2017-09-16] MEDS: MORPHINE 4 MG/ML 1ML VIAL/SYRINGE (J2270) IV ×4 (05:31→21:18)
[2017-09-16] MEDS: **hydrALAZINE** 10 MG TAB PO ×3 (05:32→21:09)
[2017-09-16 05:55] LABS: BASO % 0.8 % (0.0-1.0); EOS # 0.2 10^3/uL (0.0-0.50); EOS % 3.3 % (0.0-3.0); HEMOGLOBIN 8.3 g/dl (13.5-17.5); IMMATURE GRANULOCYTE % 0.4 % (0-3.0); LYMPH # 1.2 10^3/uL (1.5-6.5); LYMPH % 23.9 % (24.0-44.0); MEAN CORPUSCULAR HEMOGLOBIN 28.3 pg (27.0-33.0); MEAN CORPUSCULAR HGB CONC 30.7 g/dl (32.0-36.5); MEAN CORPUSCULAR VOLUME 92.2 fl (80.0-96.0); MONO # 0.4 10^3/uL (0.0-0.8); MONO % 8.5 % (0.0-5.0); NEUTROPHILS % 63.1 % (36.0-66.0); PLATELET COUNT, AUTOMATED 259 10^3/uL (150-450); RED BLOOD COUNT 2.93 10^6/uL (4.30-6.10); RED CELL DISTRIBUTION WIDTH 14.7 % (11.5-14.5); WHITE BLOOD COUNT 4.8 10^3/uL (4.0-10.0)
[2017-09-16 06:18] LABS: ALBUMIN 1.3 GM/DL (3.2-5.2); ANION GAP 9 MEQ/L (8-16); BLOOD UREA NITROGEN 13 MG/DL (7-18); CALCIUM LEVEL 7.4 MG/DL (8.5-10.1); CARBON DIOXIDE LEVEL 23 MEQ/L (21-32); CHLORIDE LEVEL 116 MEQ/L (98-107); CREATININE FOR GFR 1.76 MG/DL (0.70-1.30); GLOMERULAR FILTRATION RATE 50.1 (>60); GLUCOSE, FASTING 98 MG/DL (70-100); PHOSPHORUS LEVEL 3.6 MG/DL (2.5-4.9); POTASSIUM SERUM 3.8 MEQ/L (3.5-5.1); SODIUM LEVEL 148 MEQ/L (136-145)
[2017-09-16] MEDS: (RENVELA) SEVELAMER **CARBONate** 800 MG TAB PO ×3 (08:00→17:50)
[2017-09-16] MEDS: METHADONE 5 MG TAB (S0109) PO ×2 (08:41→21:07)
[2017-09-16] MEDS: HEPARIN SOD (PORCINE) 5000 UNITS/ML VIAL SQ ×2 (08:42→21:00)
[2017-09-17] MEDS: NAFCILLIN SOD 2 GM in D5W MINI-BAG PLUS 50 ML IV ×4 (02:38→14:11)
[2017-09-17 05:56] LABS: BASO % 0.6 % (0.0-1.0); EOS # 0.2 10^3/uL (0.0-0.50); EOS % 3.3 % (0.0-3.0); HEMATOCRIT 26.6 % (42.0-52.0); HEMOGLOBIN 8.1 g/dl (13.5-17.5); IMMATURE GRANULOCYTE % 0.6 % (0-3.0); LYMPH # 1.1 10^3/uL (1.5-6.5); MEAN CORPUSCULAR HEMOGLOBIN 28.1 pg (27.0-33.0); MEAN CORPUSCULAR HGB CONC 30.5 g/dl (32.0-36.5); MEAN CORPUSCULAR VOLUME 92.4 fl (80.0-96.0); MONO # 0.4 10^3/uL (0.0-0.8); MONO % 7.6 % (0.0-5.0); NEUTROPHILS # 3.2 10^3/uL (1.8-7.7); NEUTROPHILS % 65.9 % (36.0-66.0); PLATELET COUNT, AUTOMATED 243 10^3/uL (150-450); RED BLOOD COUNT 2.88 10^6/uL (4.30-6.10); RED CELL DISTRIBUTION WIDTH 14.6 % (11.5-14.5); WHITE BLOOD COUNT 4.9 10^3/uL (4.0-10.0)
[2017-09-17] MEDS: **hydrALAZINE** 10 MG TAB PO ×2 (06:23→12:41)
[2017-09-17] MEDS: SODIUM CHLORIDE 0.9% INJ 10 ML SYR IV (06:23)
[2017-09-17 06:41] LABS: ALBUMIN 1.6 GM/DL (3.2-5.2); ANION GAP 6 MEQ/L (8-16); BLOOD UREA NITROGEN 13 MG/DL (7-18); CALCIUM LEVEL 7.9 MG/DL (8.5-10.1); CARBON DIOXIDE LEVEL 26 MEQ/L (21-32); CHLORIDE LEVEL 113 MEQ/L (98-107); CREATININE FOR GFR 1.56 MG/DL (0.70-1.30); GLOMERULAR FILTRATION RATE 57.6 (>60); GLUCOSE, FASTING 109 MG/DL (70-100); PHOSPHORUS LEVEL 3.9 MG/DL (2.5-4.9); POTASSIUM SERUM 3.9 MEQ/L (3.5-5.1); SODIUM LEVEL 145 MEQ/L (136-145)
[2017-09-17] MEDS: (RENVELA) SEVELAMER **CARBONate** 800 MG TAB PO ×2 (08:00→12:30)
[2017-09-17] MEDS: HEPARIN SOD (PORCINE) 5000 UNITS/ML VIAL SQ (09:00)
[2017-09-17] MEDS: METHADONE 5 MG TAB (S0109) PO (10:00)
[2017-09-17] MEDS: MORPHINE 4 MG/ML 1ML VIAL/SYRINGE (J2270) IV (10:01)
[2017-09-17] MEDS ORDERED: MORPHINE 4 MG/ML 1ML VIAL/SYRINGE (J2270) IV (10:45)
[2017-09-17] MEDS ORDERED: PERCOCET 5MG/325MG TAB PO (10:45)
[2017-09-17] MEDS: PERCOCET 5MG/325MG TAB PO (15:12)
== END 2017-09-17 15:30 | disposition left against medical advice (07) | DRG 720 ==
LOC: M MS4PR 09-06 23:29 → M MS5PR 09-07 15:15 → M ED 09:54 → M ED INP 16:37 → M PCU 19:32
PROC: 02HV33Z Insertion of Infusion Device into Superior Vena Cava, Percutaneous Approach (ICD-10-PCS; principal; 2017-09-01)
PROC: 02HV33Z Insertion of Infusion Device into Superior Vena Cava, Percutaneous Approach (ICD-10-PCS; 2017-09-07)
DX: A41.01 Sepsis due to Methicillin susceptible Staphylococcus aureus (principal); I76 Septic arterial embolism; I33.0 Acute and subacute infective endocarditis; E87.2 Acidosis; N17.9 Acute kidney failure, unspecified; D69.6 Thrombocytopenia, unspecified; E87.1 Hypo-osmolality and hyponatremia; N18.3 Chronic kidney disease, stage 3 (moderate); I36.8 Other nonrheumatic tricuspid valve disorders; N25.81 Secondary hyperparathyroidism of renal origin; I36.1 Nonrheumatic tricuspid (valve) insufficiency; N05.9 Unspecified nephritic syndrome with unspecified morphologic changes; F17.210 Nicotine dependence, cigarettes, uncomplicated; B19.20 Unspecified viral hepatitis C without hepatic coma; F32.9 Major depressive disorder, single episode, unspecified; Z95.828 Presence of other vascular implants and grafts; R65.20 Severe sepsis without septic shock

== ENCOUNTER 2017-10-11 12:24 | Inpatient (IN) | payer MEDICAID, OTHER ==
[2017-10-11 12:33] LABS: BEDSIDE GLUCOSE 124 MG/DL (70-105)
[2017-10-11 13:00] LABS: VENOUS BASE EXCESS 1.5 (-2.0-2.0); VENOUS HCO3 27.2 MEQ/L (23.0-27.0); VENOUS O2 SATURATION 97.6 % (60.0-80.0); VENOUS PARTIAL PRESSURE CO2 47.4 mmHg (38.0-50.0); VENOUS PARTIAL PRESSURE O2 94.8 mmHg (30.0-50.0); VENOUS PH 7.377 UNITS (7.330-7.430); VENOUS STANDARD HCO3 25.8 MEQ/L; VENOUS TOTAL CO2 28.7 MEQ/L (24.0-28.0)
[2017-10-11 13:02] LABS: BASO % 0.6 % (0.0-1.0); EOS # 0.2 10^3/uL (0.0-0.50); EOS % 3.5 % (0.0-3.0); HEMATOCRIT 36.5 % (42.0-52.0); HEMOGLOBIN 11.9 g/dl (13.5-17.5); IMMATURE GRANULOCYTE % 0.3 % (0-3.0); LYMPH # 1.6 10^3/uL (1.5-6.5); MEAN CORPUSCULAR HEMOGLOBIN 29.1 pg (27.0-33.0); MEAN CORPUSCULAR HGB CONC 32.6 g/dl (32.0-36.5); MEAN CORPUSCULAR VOLUME 89.2 fl (80.0-96.0); MONO # 0.5 10^3/uL (0.0-0.8); MONO % 6.8 % (0.0-5.0); NEUTROPHILS # 4.5 10^3/uL (1.8-7.7); NEUTROPHILS % 65.8 % (36.0-66.0); PLATELET COUNT, AUTOMATED 151 10^3/uL (150-450); RED BLOOD COUNT 4.09 10^6/uL (4.30-6.10); RED CELL DISTRIBUTION WIDTH 15.5 % (11.5-14.5); WHITE BLOOD COUNT 6.8 10^3/uL (4.0-10.0)
[2017-10-11] MEDS: NS 1,000 ML IV ×3 (13:06→16:45)
[2017-10-11 13:41] LABS: ALT/SGPT 15 U/L (12-78); ANION GAP 6 MEQ/L (8-16); AST/SGOT 13 U/L (7-37); BLOOD UREA NITROGEN 13 MG/DL (7-18); CALCIUM LEVEL 8.6 MG/DL (8.5-10.1); CARBON DIOXIDE LEVEL 29 MEQ/L (21-32); CHLORIDE LEVEL 112 MEQ/L (98-107); CREATININE FOR GFR 1.52 MG/DL (0.70-1.30); GLOMERULAR FILTRATION RATE 59.3 (>60); GLUCOSE, FASTING 110 MG/DL (70-100); POTASSIUM SERUM 3.9 MEQ/L (3.5-5.1); SODIUM LEVEL 147 MEQ/L (136-145)
[2017-10-11 13:42] LABS: ALBUMIN 3.2 GM/DL (3.2-5.2); ALKALINE PHOSPHATASE 83 U/L (45-117); BILIRUBIN,DIRECT < 0.1 MG/DL (0.0-0.2); BILIRUBIN,TOTAL 0.3 MG/DL (0.2-1.0); CPK CREATINE PHOSPHOKINASE 36 U/L (39-308); ETHYL ALCOHOL (ETHANOL) < 0.003 % (0.000-0.010); SALICYLATE LEVEL 2.9 MG/DL (5.0-30.0); TOTAL PROTEIN 8.5 GM/DL (6.4-8.2)
[2017-10-11 13:46] LABS: ACETAMINOPHEN LEVEL < 2.0 UG/ML (10.0-30.0)
[2017-10-11 14:41] LABS: OSMOLALITY SERUM 303 MOSM/KG (275-295)
[2017-10-11 17:52] LABS: OSMOLALITY URINE 489 MOSM/KG (500-800)
[2017-10-11 18:35] LABS: AMPHETAMINES LEVEL URINE POSITIVE (NEGATIVE); BARBITURATES URINE NEGATIVE (NEGATIVE); BENZODIAZEPINES URINE NEGATIVE (NEGATIVE); CANNABINOIDS URINE NEGATIVE (NEGATIVE); COCAINE METABOLITE URINE NEGATIVE (NEGATIVE); METHADONE URINE NEGATIVE (NEGATIVE); OPIATES URINE POSITIVE (NEGATIVE); PHENCYCLIDINE URINE NEGATIVE (NEGATIVE)
[2017-10-12] MEDS ORDERED: MAALOX 30 ML SUSP *UDC PO (09:00)
[2017-10-12] MEDS ORDERED: MOM 30ML SUSPENSION UDC PO (09:00)
[2017-10-12] MEDS ORDERED: ACETAMINOPHEN TAB 650MG DOSE (2X325MG) PO (09:00)
[2017-10-12] MEDS: NICOTINE 21MG/24HR 1 EA TRANSDERMAL TD (15:35)
[2017-10-12] MEDS: **hydrALAZINE HCL** 25 MG TAB PO ×2 (17:52→22:12)
[2017-10-12] MEDS: traZODone 50 MG TAB PO (22:11)
[2017-10-13 07:38] LABS: HEMATOCRIT 36.7 % (42.0-52.0); HEMOGLOBIN 11.9 g/dl (13.5-17.5); MEAN CORPUSCULAR HGB CONC 32.4 g/dl (32.0-36.5); MEAN CORPUSCULAR VOLUME 89.5 fl (80.0-96.0); PLATELET COUNT, AUTOMATED 170 10^3/uL (150-450); RED CELL DISTRIBUTION WIDTH 15.3 % (11.5-14.5); WHITE BLOOD COUNT 5.3 10^3/uL (4.0-10.0)
[2017-10-13 07:54] LABS: ALBUMIN 2.8 GM/DL (3.2-5.2); ALKALINE PHOSPHATASE 80 U/L (45-117); ALT/SGPT 13 U/L (12-78); ANION GAP 7 MEQ/L (8-16); AST/SGOT 12 U/L (7-37); BILIRUBIN,TOTAL 0.3 MG/DL (0.2-1.0); BLOOD UREA NITROGEN 10 MG/DL (7-18); CALCIUM LEVEL 8.5 MG/DL (8.5-10.1); CARBON DIOXIDE LEVEL 26 MEQ/L (21-32); CHLORIDE LEVEL 110 MEQ/L (98-107); CREATININE FOR GFR 1.19 MG/DL (0.70-1.30); GLOMERULAR FILTRATION RATE > 60.0 (>60); GLUCOSE, FASTING 92 MG/DL (70-100); POTASSIUM SERUM 4.1 MEQ/L (3.5-5.1); SODIUM LEVEL 143 MEQ/L (136-145); TOTAL PROTEIN 7.5 GM/DL (6.4-8.2)
[2017-10-13] MEDS: NICOTINE 21MG/24HR 1 EA TRANSDERMAL TD (09:00)
[2017-10-13] MEDS: **hydrALAZINE HCL** 25 MG TAB PO (09:00)
== END 2017-10-13 13:50 | disposition home or self-care (01) | DRG 881 ==
LOC: M ED INP 10-12 08:50 → M PSY 10-12 10:50 → M ED 12:24
PROVIDERS: Psychiatry & Neurology Psychiatry
DX: F32.9 Major depressive disorder, single episode, unspecified (principal); E87.0 Hyperosmolality and hypernatremia; F11.90 Opioid use, unspecified, uncomplicated; F15.90 Other stimulant use, unspecified, uncomplicated; M54.5 Low back pain; I12.9 Hypertensive chronic kidney disease with stage 1 through stage 4 chronic kidney disease, or unspecified chronic kidney disease; F17.200 Nicotine dependence, unspecified, uncomplicated; N18.9 Chronic kidney disease, unspecified; D69.6 Thrombocytopenia, unspecified; Z79.899 Other long term (current) drug therapy

== ENCOUNTER → 2018-04-30 | Outpatient (REF) | payer OTHER ==
[~2018-04-30] MED LIST changes: +ACET-683 PO; +AMLO5TAB6 PO; +BENZ200C70 PO; +CEFU1TAB20 PO; +CIPR500T19 PO; +COLA100C5 PO; +DAPT500I IV; +FERR1TAB8 PO; +GABA-1171 PO; +HYDR25TA PO; +IBUP-1022 PO; +METO50TA7 PO; +PATIENT COMMENT; +PEG1POW PO; +RENV2TAB PO; +SODI325T9 PO; +ZITHTAB PO
[2018-04-30 19:11] LABS: BASO % 0.6 % (0.0-1.0); EOS # 0.2 10^3/uL (0.0-0.50); HEMATOCRIT 41.4 % (42.0-52.0); HEMOGLOBIN 13.8 g/dl (13.5-17.5); MEAN CORPUSCULAR HEMOGLOBIN 28.9 pg (27.0-33.0); MEAN CORPUSCULAR HGB CONC 33.3 g/dl (32.0-36.5); MEAN CORPUSCULAR VOLUME 86.8 fl (80.0-96.0); MONO # 0.4 10^3/uL (0.0-0.8); MONO % 7.3 % (0.0-5.0); NEUTROPHILS # 2.6 10^3/uL (1.8-7.7); NEUTROPHILS % 49.1 % (36.0-66.0); PLATELET COUNT, AUTOMATED 180 10^3/uL (150-450); RED BLOOD COUNT 4.77 10^6/uL (4.30-6.10); WHITE BLOOD COUNT 5.2 10^3/uL (4.0-10.0)
[2018-04-30 19:37] LABS: ALBUMIN 4.1 GM/DL (3.2-5.2); ALT/SGPT 14 U/L (12-78); BILIRUBIN,TOTAL 0.3 MG/DL (0.2-1.0); BLOOD UREA NITROGEN 17 MG/DL (7-18); CALCIUM LEVEL 8.4 MG/DL (8.5-10.1); CARBON DIOXIDE LEVEL 28 MEQ/L (21-32); CHLORIDE LEVEL 107 MEQ/L (98-107); CREATININE FOR GFR 0.98 MG/DL (0.70-1.30); GLOMERULAR FILTRATION RATE > 60.0 (>60); GLUCOSE, FASTING 100 MG/DL (70-100); IRON (FE) 125 UG/DL (65-175); PERCENT SATURATION 54.3 % (19.7-50.0); POTASSIUM SERUM 4.1 MEQ/L (3.5-5.1); SODIUM LEVEL 140 MEQ/L (136-145); TOTAL IRON BINDING CAPACITY 230 UG/DL (250-450); TOTAL PROTEIN 7.4 GM/DL (6.4-8.2)
== END ==
LOC: M LAB 18:35
PROVIDERS: ATTEND Nurse Practitioner Family
DX: F11.20 Opioid dependence, uncomplicated (principal)

== ENCOUNTER 2018-07-01 16:55 | Emergency (ER) | payer OTHER ==
[~2018-07-01] VITALS: Ht 170.2 cm; Wt 64.1 kg
[2018-07-01 16:56] VITALS: BP 124/80
[2018-07-01] MEDS ORDERED: BACTRIM 160MG/800MG DS TAB PO ONE (17:15)
[2018-07-01] MEDS ORDERED: BACT800T5 PO (17:16)
[2018-07-01] MEDS ORDERED: CLIN150C14 PO (17:23)
[2018-07-01] MEDS ORDERED: DOXY100C PO (17:27)
[2018-07-01] MEDS ORDERED: DOXYCYCLINE HYCLATE 100 MG TAB PO ONE (17:30)
== END 2018-07-01 17:43 | disposition home or self-care (01) ==
LOC: M ED 16:55
DX: L08.9 Local infection of the skin and subcutaneous tissue, unspecified (principal); I10 Essential (primary) hypertension; Z87.01 Personal history of pneumonia (recurrent); N17.9 Acute kidney failure, unspecified; R16.0 Hepatomegaly, not elsewhere classified; M54.9 Dorsalgia, unspecified; F41.9 Anxiety disorder, unspecified; F19.10 Other psychoactive substance abuse, uncomplicated; F32.9 Major depressive disorder, single episode, unspecified; Z99.2 Dependence on renal dialysis; F17.200 Nicotine dependence, unspecified, uncomplicated

== ENCOUNTER 2018-09-02 21:49 | Emergency (ER) | payer OTHER ==
[~2018-09-02] VITALS: Ht 170.2 cm; Wt 72.7 kg
[~2018-09-02 21:49] MED LIST changes: +CLIN150C14 PO; +DOXY100C PO
[2018-09-02 21:50] VITALS: BP 131/84
== END 2018-09-02 23:30 | disposition left against medical advice (07) ==
LOC: M ED 21:49
DX: S49.92XA Unspecified injury of left shoulder and upper arm, initial encounter (principal); X58.XXXA Exposure to other specified factors, initial encounter; Y92.9 Unspecified place or not applicable; Y93.9 Activity, unspecified; Y99.9 Unspecified external cause status; Z53.21 Procedure and treatment not carried out due to patient leaving prior to being seen by health care provider

== ENCOUNTER → 2020-06-04 | Outpatient (REF) | payer OTHER ==
[~2020-06-04] MED LIST changes: +AMLO1TAB24 PO; -AMLO5TAB6 PO; -CLIN150C14 PO; +CLIN150C15 PO; -PEG1POW PO; +POLY17PO18 PO
== END ==
LOC: M LAB REF 11:04
PROVIDERS: ATTEND Surgery
DX: U07.1 COVID-19 (principal)

== ENCOUNTER → 2021-05-13 | Outpatient (CLI) | payer OTHER ==
[~2021-05-13] MED LIST changes: -CLIN150C15 PO; +CLIN150C17 PO; -DAPT500I IV; +DAPT500V8 IV; -DOXY100C PO; +DOXY100C3 PO
[2021-05-13 10:41] LABS: HEMATOCRIT 44.1 % (42.0-52.0); HEMOGLOBIN 14.7 g/dl (13.5-17.5); MEAN CORPUSCULAR HGB CONC 33.3 g/dl (32.0-36.5); PLATELET COUNT, AUTOMATED 163 10^3/uL (150-450)
[2021-05-13 11:12] LABS: ALBUMIN 3.3 GM/DL (3.2-5.2); ALT/SGPT 25 U/L (12-78); BILIRUBIN,TOTAL 0.5 MG/DL (0.2-1.0); BLOOD UREA NITROGEN 15 MG/DL (7-18); CALCIUM LEVEL 8.2 MG/DL (8.5-10.1); CARBON DIOXIDE LEVEL 31 MEQ/L (21-32); CHLORIDE LEVEL 108 MEQ/L (98-107); CREATININE FOR GFR 0.87 MG/DL (0.70-1.30); GLOMERULAR FILTRATION RATE > 60.0 (>60); GLUCOSE, FASTING 111 MG/DL (70-100); POTASSIUM SERUM 4.1 MEQ/L (3.5-5.1); SODIUM LEVEL 139 MEQ/L (136-145); TOTAL PROTEIN 6.6 GM/DL (6.4-8.2)
[2021-05-13 11:30] LABS: HEPATITIS B SURFACE ANTIGEN NEGATIVE (NEGATIVE)
[2021-05-13 11:59] LABS: HIV 1&2 SCREEN CENTAUR NEGATIVE (NEGATIVE)
[2021-05-13 12:20] LABS: GC DNA AMPLIFICATION NEGATIVE (NEGATIVE)
[2021-05-13 12:28] LABS: HEPATITIS C VIRUS ABY INDEX > 11.0 INDEX (<0.8)
== END ==
LOC: M EKG 08:59
PROVIDERS: ATTEND Family Medicine
DX: F11.20 Opioid dependence, uncomplicated (principal); R00.1 Bradycardia, unspecified

== ENCOUNTER → 2022-02-02 | Outpatient (CLI) | payer OTHER ==
[2022-02-02 15:45] LABS: GC DNA AMPLIFICATION NEGATIVE (NEGATIVE)
== END ==
LOC: M EKG 11:57
PROVIDERS: ATTEND Family Medicine
DX: F11.20 Opioid dependence, uncomplicated (principal)

== ENCOUNTER 2022-04-20 10:01 | Emergency (ER) | payer OTHER ==
[~2022-04-20] VITALS: Ht 167.6 cm; Wt 68.2 kg
[2022-04-20] MEDS ORDERED: NALOXONE 2MG/2ML SYRINGE IM STA (10:25)
[2022-04-20] MEDS ORDERED: NALOXONE 2MG/2ML SYRINGE ONE (10:25)
[2022-04-20 10:45] VITALS: BP 137/73
== END 2022-04-20 10:50 | disposition home or self-care (01) ==
LOC: M ED 10:01 → EDBD 10:01 → M ED 10:50
DX: T50.7X1A Poisoning by analeptics and opioid receptor antagonists, accidental (unintentional), initial encounter (principal); F17.200 Nicotine dependence, unspecified, uncomplicated
CPT/HCPCS: 96372; 99284; J2310

== ENCOUNTER 2022-10-02 18:56 | Emergency (ER) | payer OTHER ==
[2022-10-02 20:15] LABS: BARBITURATES URINE NEGATIVE (NEGATIVE)
[2022-10-02 20:16] LABS: BENZODIAZEPINES URINE NEGATIVE (NEGATIVE); CANNABINOIDS URINE NEGATIVE (NEGATIVE); COCAINE METABOLITE URINE NEGATIVE (NEGATIVE); PHENCYCLIDINE URINE NEGATIVE (NEGATIVE)
[2022-10-02 20:20] LABS: AMPHETAMINES LEVEL URINE POSITIVE (NEGATIVE); METHADONE URINE POSITIVE (NEGATIVE); OPIATES URINE POSITIVE (NEGATIVE)
[2022-10-02 21:08] LABS: HEMATOCRIT 45.9 % (42.0-52.0); HEMOGLOBIN 15.1 g/dl (13.5-17.5); MEAN CORPUSCULAR HEMOGLOBIN 28.6 pg (27.0-33.0); MEAN CORPUSCULAR HGB CONC 32.9 g/dl (32.0-36.5); MEAN CORPUSCULAR VOLUME 86.9 fl (80.0-96.0); PLATELET COUNT, AUTOMATED 244 10^3/uL (150-450); RED BLOOD COUNT 5.28 10^6/uL (4.30-6.10); WHITE BLOOD COUNT 6.7 10^3/uL (4.0-10.0)
[2022-10-02] MEDS ORDERED: TRIA1CR80 TOP (21:26)
[2022-10-02 21:29] LABS: ETHYL ALCOHOL (ETHANOL) < 0.003 % (0.000-0.010)
[2022-10-02 21:31] LABS: ACETAMINOPHEN LEVEL < 2.0 UG/ML (10.0-20.0); BLOOD UREA NITROGEN 14 MG/DL (9-23); CALCIUM LEVEL 9.5 MG/DL (8.5-10.1); CARBON DIOXIDE LEVEL 27 MMOL/L (20-31); CHLORIDE LEVEL 106 MMOL/L (98-107); CREATININE FOR GFR 0.92 MG/DL (0.70-1.30); GLOMERULAR FILTRATION RATE > 60.0 (>60); GLUCOSE, FASTING 102 MG/DL (60-100); SALICYLATE LEVEL < 3.0 MG/DL (<30); SODIUM LEVEL 142 MMOL/L (136-145)
[2022-10-02 21:32] VITALS: BP 132/76; TEMP 98.9; O2SAT 97
== END 2022-10-02 21:46 | disposition home or self-care (01) ==
LOC: M ED 18:56
DX: L28.1 Prurigo nodularis (principal); F17.200 Nicotine dependence, unspecified, uncomplicated

== ENCOUNTER 2023-04-27 20:05 | Emergency (ER) | payer OTHER ==
[~2023-04-27] VITALS: Ht 167.6 cm; Wt 79.0 kg
[~2023-04-27 20:05] MED LIST changes: -HYDR25TA PO; +HYDR25TA88 PO; +TRIA1CR80 TOP
[2023-04-27 20:06] VITALS: BP 154/79; TEMP 97.1; O2SAT 100
== END 2023-04-27 21:20 | disposition left against medical advice (07) ==
LOC: M ED 20:05
DX: Z53.21 Procedure and treatment not carried out due to patient leaving prior to being seen by health care provider (principal)

== ENCOUNTER 2023-05-27 12:26 | Emergency (ER) | payer OTHER ==
[~2023-05-27] VITALS: Ht 167.6 cm; Wt 78.8 kg
[2023-05-27] MEDS ORDERED: ERGO500029 (12:33)
[2023-05-27] MEDS ORDERED: SERT50TA29 (12:33)
[2023-05-27] MEDS ORDERED: HYDR-3363 (12:33)
[2023-05-27] MEDS ORDERED: AMOX875T2 PO (15:10)
[2023-05-27] MEDS ORDERED: IBUP-1022 PO (15:10)
[2023-05-27] MEDS ORDERED: PERI0.126 PO (15:10)
[2023-05-27] MEDS ORDERED: ACET325C5 PO (15:10)
[2023-05-27 15:21] VITALS: BP 115/69; TEMP 96.7; O2SAT 98
== END 2023-05-27 15:31 | disposition home or self-care (01) ==
LOC: M ED 12:26
DX: K04.7 Periapical abscess without sinus (principal); I10 Essential (primary) hypertension; I38 Endocarditis, valve unspecified; R16.0 Hepatomegaly, not elsewhere classified; F19.11 Other psychoactive substance abuse, in remission; F17.200 Nicotine dependence, unspecified, uncomplicated

== ENCOUNTER 2024-02-13 03:43 | Emergency (ER) | payer OTHER, SELFPAY ==
[~2024-02-13] VITALS: Ht 167.6 cm; Wt 89.8 kg
[~2024-02-13 03:43] MED LIST changes: +ACET325C5 PO; +AMOX875T2 PO; +ERGO500029; +HYDR-3363; +PERI0.126 PO; +SERT50TA29
[2024-02-13 05:14] LABS: BASO % 0.2 % (0.0-1.0); EOS # 0.1 10^3/uL (0.0-0.5); EOS % 1.6 % (0.0-3.0); HEMOGLOBIN 13.4 g/dl (13.5-17.5); LYMPH # 1.4 10^3/uL (1.5-5.0); LYMPH % 21.9 % (24.0-44.0); MEAN CORPUSCULAR HEMOGLOBIN 29.3 pg (27.0-33.0); MEAN CORPUSCULAR HGB CONC 33.5 g/dl (32.0-36.5); MEAN CORPUSCULAR VOLUME 87.3 fl (80.0-96.0); MONO # 0.6 10^3/uL (0.0-0.8); MONO % 9.6 % (2.0-8.0); NEUTROPHILS # 4.2 10^3/uL (1.5-8.5); NEUTROPHILS % 66.5 % (36.0-66.0); PLATELET COUNT, AUTOMATED 165 10^3/uL (150-450); RED BLOOD COUNT 4.58 10^6/uL (4.30-6.10); WHITE BLOOD COUNT 6.3 10^3/uL (4.0-10.0)
[2024-02-13 05:35] LABS: BLOOD UREA NITROGEN 15 MG/DL (9-23); CALCIUM LEVEL 9.1 MG/DL (8.5-10.1); CARBON DIOXIDE LEVEL 28 MMOL/L (20-31); CHLORIDE LEVEL 107 MMOL/L (98-107); CREATININE FOR GFR 0.99 MG/DL (0.70-1.30); GLOMERULAR FILTRATION RATE > 60.0 (>60); GLUCOSE, FASTING 103 MG/DL (60-100); POTASSIUM SERUM 3.8 MMOL/L (3.5-5.1); SODIUM LEVEL 142 MMOL/L (136-145)
[2024-02-13] MEDS: CLINDAMYCIN 900 MG in IV 1 EA IV ONE (07:15)
[2024-02-13] MEDS ORDERED: ISOVUE-370 76% 100ML VIAL As Ordered ONE (07:25)
[2024-02-13] MEDS ORDERED: CLIN150C17 PO (08:28)
[2024-02-13] MEDS ORDERED: CLEO300C2 PO (08:28)
[2024-02-13 08:30] VITALS: BP 112/55; TEMP 98.9; O2SAT 97
== END 2024-02-13 08:47 | disposition home or self-care (01) ==
LOC: M ED 03:43
DX: L03.211 Cellulitis of face (principal); K08.89 Other specified disorders of teeth and supporting structures; F32.A Depression, unspecified; M54.9 Dorsalgia, unspecified; F19.10 Other psychoactive substance abuse, uncomplicated; F17.200 Nicotine dependence, unspecified, uncomplicated; Z79.899 Other long term (current) drug therapy
CPT/HCPCS: 70487; 80048; 85025; 87040; 99284; J0737; Q9967